=== PATIENT | female | born 1945 | race Caucasian/White ===

== ENCOUNTER → 2018-04-04 | Outpatient (CLI) | payer MEDICARE ==
--- NOTE | 2018-04-04 15:37 | US ---
EXAMINATION TYPE: US carotid duplex BILAT DATE OF EXAM: 04/04/2018 COMPARISON: NONE CLINICAL HISTORY: Carotid Bruit R09.89. Bruit EXAM MEASUREMENTS: RIGHT: Peak Systolic Velocity (PSV) cm/sec ----- Right CCA: 75.4 ----- Right ICA: 78.7 ----- Right ECA: 80.0 ICA/CCA ratio: 1.0 RIGHT: End Diastole cm/sec ----- Right CCA: 16.0 ----- Right ICA: 24.8 ----- Right ECA: 0.0 LEFT: Peak Systolic Velocity (PSV) cm/sec ----- Left CCA: 71.5 ----- Left ICA: 81.6 ----- Left ECA: 65.9 ICA/CCA ratio: 1.1 LEFT: End Diastole cm/sec ----- Left CCA: 18.7 ----- Left ICA: 20.0 ----- Left ECA: 8.1 VERTEBRALS (direction of flow): Right Vertebral: Antegrade Left Vertebral: Antegrade Rhythm: Normal Bilateral intimal thickening, minimal plaque bilateral bulb, no elevated velocities, no significant s tenosis. IMPRESSION: No hemodynamically significant stenosis seen in either internal carotid artery.
== END | disposition home or self-care (01) ==
LOC: RADUSWWP 14:56
PROVIDERS: ATTEND Family Medicine
DX: R09.89 Other specified symptoms and signs involving the circulatory and respiratory systems (principal)
CPT/HCPCS: 93880

== ENCOUNTER → 2018-05-05 | Outpatient (CLI) | payer MEDICARE ==
--- NOTE | 2018-05-05 09:38 | MR ---
EXAMINATION TYPE: MR lumbar spine wo con DATE OF EXAM: 05/05/2018 COMPARISON: NONE HISTORY: Low back pain TECHNIQUE: T1 and T2 axial and sagittal images of the lumbar spine are submitted. FINDINGS: There is no abnormal signal seen within the visualized spinal cord or paraspinal soft tissu es. Areas of abnormal signal involving the kidneys are likely related to tiny simple cysts. At L1-2 there is moderate degenerative disc disease with circumferential disc bulging. There is a adv anced facet arthropathy greater on the left. Borderline central stenosis and mild bilateral foraminal encroachment greater on the left. At L2-3 there is severe degenerative disc disease there is a minimal anterolisthesis of L2 on L3. Bro ad-based central disc protrusion with facet arthropathy and ligamentum flavum results in moderate deepti tral stenosis and mild right foraminal encroachment. There is moderate left foraminal encroachment. D isc protrusion extends greater paracentrally and laterally to the left. At L3-4 there is severe degenerative disc disease with vacuum disc and diffuse disc bulging. Marked f acet arthropathy and ligamentum flavum hypertrophy contribute to moderate central stenosis and bilate ral neural foraminal encroachment. At L4-5 there is severe degenerative disc disease with severe ligamentum flavum hypertrophy and broad -based central disc protrusion advanced facet arthropathy contribute to severe canal stenosis. There is severe right foraminal encroachment and moderate left foraminal encroachment. At L5-S1 there is severe degenerative disc disease with marked facet arthropathy and ligamentum flavu m hypertrophy. Broad-based central disc bulging contributes to moderate to severe central stenosis. T here is bilateral neural foraminal encroachment. IMPRESSION: 1. Severe degenerative disc disease at all levels. There is multilevel disc protrusions, canal stenos is and foraminal encroachment with most marked findings at L4-L5. 2. The common bile duct appears to be dilated and there appears to be a area of low signal within the distal common bile duct. This could represent a distal CBD stone. Correlate clinically.
== END ==
LOC: RADMRIMAIN 08:40
PROVIDERS: ATTEND Orthopaedic Surgery Orthopaedic Surgery of the Spine
DX: M48.061 Spinal stenosis, lumbar region without neurogenic claudication (principal); M51.26 Other intervertebral disc displacement, lumbar region; M51.36 Other intervertebral disc degeneration, lumbar region
CPT/HCPCS: 72148

== ENCOUNTER 2018-06-21 06:49 | Day surgery (SDC) | payer MEDICARE ==
[2018-06-15 15:02] VITALS: BMI 31.1
[~2018-06-21 06:49] MED LIST: LACTATED RINGERS 1,000 ML IV SCH
[2018-06-21] MEDS: CYCLOPENTOLATE 1% OPHTH SOLN 2 ML BTL OP ONE ×3 (07:23→07:46)
[2018-06-21 07:28] VITALS: TEMP 97.8
[2018-06-21] MEDS: PHENYLEPHRINE 10% OPHTH DROPS 5 ML BTL OP ONE ×3 (07:29→07:49)
[2018-06-21 07:31] LABS: Glucose,Whole Blood 123 mg/dL (75-99)
[2018-06-21] MEDS: KETOROLAC 0.5% OPHTH DROPS 5 ML BTL OP ONE ×3 (07:33→07:52)
[2018-06-21] MEDS ORDERED: ONDANSETRON 4 MG/2 ML VIAL IVP ONE (07:40)
[2018-06-21] MEDS ORDERED: fentaNYL (PF) 50 MCG/ML 2 ML AMP ONE (08:22)
[2018-06-21] MEDS ORDERED: MIDAZOLAM 2 MG/2 ML VIAL ONE (08:22)
[2018-06-21] MEDS ORDERED: PROPOFOL 10 MG/ML 20 ML VIAL IV ONE (08:22)
[2018-06-21] MEDS ORDERED: EPINEPHrine (PF) 0.5 ML in BALANCED SALT IRRIG SOLN COMB2 500 ML IRRIGATION ONE (08:37)
[2018-06-21] MEDS ORDERED: HYALURONATE SODIUM INTRAOCULAR 1 EACH SYRINGE (10MG/ML) INTRAOCULA ONE (08:39)
[2018-06-21] MEDS ORDERED: BALANCED SALT IRRIG SOLN COMB2 15 ML IRRIG.SOLN IRRIGATION ONE (08:39)
--- NOTE | 2018-06-21 08:46 | P.OP ---
Date of Procedure: 06/21/18 Procedure(s) Performed: PREOPERATIVE DIAGNOSIS: Cataract, left eye. POSTOPERATIVE DIAGNOSIS: Cataract, left eye. OPERATION: Phacoemulsification cataract, left eye. DESCRIPTION OF PROCEDURE: The patient was taken to the preoperative holding area. Intravenous Propofol was given so as to bring about adequate sedation. The following mixture was given for local anesthesia: 5 mL of 2% lidocaine, 5 mL of 0.75% Marcaine, and 1 mL of Wydase. Approximately 4 mL was injected in the retrobulbar space of the surgical eye. Additional 1 mL was then directed to the temporal area of the surgical eye. This was performed to allow adequate neurological block of the facial muscles. The patient was revived and then taken into the operative room. The patient was prepped and draped in the usual sterile manner for the operative eye. A lid speculum was put into position. The conjunctiva was resected back from the limbus in the 12 o'clock position. Bleeding was controlled with electrocautery. A #69 blade was then used and a half-thickness scleral incision approximately 1-mm posterior to the limbus was made on bare sclera. This was shelved in the clear cornea using a crescent knife. Next a 15-degree blade was used to make a stab incision at the 3 o' clock position at the corneolimbal interface. Keratome blade was then used and the superior wound was extended into the anterior chamber. Viscoelastic was injected into the anterior chamber and to maintain its form. Next, a cystotome was used and a continuous anterior capsulotomy was made without difficulty. Hydrodissection using a blunt cannula and BSS was performed. Phaco probe was then employed and a groove extending from 12 to 6 o'clock in the lens was created. A Cole wand was used through the stab incision so as to perform a divide and conquer technique. Next an irrigation aspiration probe was utilized and any residual cortex was removed from the eye. Again, viscoelastic was injected into the anterior chamber. An Jose posterior chamber lens implant was placed in the cartridge and injected into the anterior chamber without difficulty. The SinTipRanksey hook was utilized to spin the lens into position and this was again performed without any difficulty. The irrigation and aspiration probe was again employed and any residual viscoelastic was removed from the eye. Then BSS was injected into the limbal stab incision and the anterior chamber re-inflated. The conjunctiva was reapproximated using electrocautery. One drop of 0.25% Timoptic was placed over the corneal along with TobraDex ophthalmic ointment. Two sterile patches and a Hayes eye shield were taped into position. The patient was transported to the recovery room in stable condition. Pathology: none sent Condition: stable Disposition: same day
[2018-06-21 09:07] VITALS: BP 136/89; PULSE 74; RESP 18
[2018-06-21] MEDS ORDERED: BUPIVACAINE (PF) 0.75% 5 ML, HYALURONIDASE, HUMAN RECOMB 150 UNIT, LIDOCAINE 2% (PF) 10... MISCELLANE ONE ×3 (23:00)
[2018-06-21] MEDS ORDERED: GENTAMICIN/PREDNISOL AC OPHTH OINT 3.5GM OPHTHALMIC ONE (23:00)
[2018-06-21] MEDS ORDERED: TIMOLOL 0.5% OPHTH DROPS 5 ML BTL OP ONE (23:00)
== END 2018-06-21 09:22 | disposition home or self-care (01) ==
LOC: OR 06:49
PROVIDERS: ATTEND Ophthalmology
DX: H25.13 Age-related nuclear cataract, bilateral (principal); E11.9 Type 2 diabetes mellitus without complications; I11.9 Hypertensive heart disease without heart failure; M19.90 Unspecified osteoarthritis, unspecified site; K21.9 Gastro-esophageal reflux disease without esophagitis; Z88.5 Allergy status to narcotic agent; Z88.0 Allergy status to penicillin; Z88.8 Allergy status to other drugs, medicaments and biological substances; Z88.6 Allergy status to analgesic agent; Z91.041 Radiographic dye allergy status; Z79.84 Long term (current) use of oral hypoglycemic drugs; Z79.899 Other long term (current) drug therapy; Z98.51 Tubal ligation status
CPT/HCPCS: 66984; V2632; J2250; J3470; J2001; J2405; J0171; J3010; J2704

== ENCOUNTER 2019-06-08 22:55 | Observation (INO) | payer MEDICARE ==
[2019-06-08] MEDS ORDERED: SODIUM CHLORIDE 0.9% 1,000 ML IV STA (23:21)
[2019-06-08] MEDS ORDERED: ONDANSETRON 4 MG/2 ML VIAL IVP STA (23:21)
[2019-06-08] MEDS ORDERED: MECLIZINE 12.5 MG TAB PO STA (23:21)
--- NOTE | 2019-06-08 23:25 | ED ---
Dizziness HPI - General Chief Complaint: Dizziness Stated Complaint: Nausea Source: patient Mode of arrival: ambulatory Limitations: no limitations - History of Present Illness Initial Comments: Katie is a pleasant 74-year-old female who presents to the emergency department today for evaluation of dizziness, room spinning sensation and nausea. Patient reports that she's been prescribed a pain medication, patient states that she usually only takes half a pill but even that tends to make her feel lightheaded and unwell. Patient states on Wednesday of this week she took a full pill and believes that her symptoms are due to that. - Related Data Home Medications Medication Instructions Recorded Confirmed Benazepril HCl 10 mg PO QAM 04/09/16 06/08/19 Cranberry Fruit Concentrate 1 tab PO DAILY 04/09/16 06/08/19 [Cranberry] Gabapentin [Neurontin] 600 mg PO TID 04/09/16 06/08/19 Verapamil HCl [Verapamil ER] 240 mg PO QAM 04/09/16 06/08/19 metFORMIN HCL [Glucophage] 850 mg PO BID 04/09/16 06/08/19 Baclofen [Lioresal] 10 mg PO TID PRN 06/15/18 06/08/19 Cholecalciferol [Vitamin D3] 2,000 unit PO DAILY 06/15/18 06/08/19 Iron 50 mg PO DAILY 06/15/18 06/08/19 Multivit-Min/Iron/Folic/Lutein 1 tab PO DAILY 06/15/18 06/08/19 [Centrum Silver Women Tablet] Omeprazole 20 mg PO BID 06/15/18 06/08/19 Allergies Allergy/AdvReac Type Severity Reaction Status Date / Time Penicillins Allergy Rash/Hives.HOT Verified 06/08/19 23:29 FLASH caffeine AdvReac INCREASED Verified 06/08/19 23:29 HEART RATE, TWITCHING ON HER SCALP codeine AdvReac Nausea & Verified 06/08/19 23:29 Vomiting Iodinated Contrast Media AdvReac 'PASSED Verified 06/08/19 23:29 [Iodinated Contrast Media - OUT'. IV Dye] FLUSHING. morphine AdvReac Nausea & Verified 06/08/19 23:29 Vomiting NSAIDS (Non-Steroidal AdvReac ulcers Verified 06/08/19 23:29 Anti-Inflamma theophylline anhydrous AdvReac INCREASED Verified 06/08/19 23:29 [From Álvaro-Dur] HEART RATE SYMPATHOMEIMETCICS AdvReac Unknown. Uncoded 06/08/19 23:29 PATIENT SPELLED THIS SEVERAL TIMES? Review of Systems ROS Statement: Those systems with pertinent positive or pertinent negative responses have been documented in the HPI. ROS Other: All systems not noted in ROS Statement are negative. Past Medical History Past Medical History: Asthma, Diabetes Mellitus, Eye Disorder, Fibromyalgia, GERD/Reflux, GI Bleed, Hypertension, Myocardial Infarction (CT), Rheumatoid Arthritis (RA) Additional Past Medical History / Comment(s): unable to breath through nose,steroid injection Jun 2018 to back,cataracts maximus eyes,PAST UGI BLEED X3. HEART MURMUR.. Last Myocardial Infarction Date:: 2004 History of Any Multi-Drug Resistant Organisms: None Reported Past Surgical History: Cholecystectomy, Joint Replacement, Orthopedic Surgery, Tubal Ligation Additional Past Surgical History / Comment(s): RIGHT COLLAR BONE REPAIR ( DEFECT). LEFT TOTAL KNEE. Past Anesthesia/Blood Transfusion Reactions: Motion Sickness, Postoperative Nausea & Vomiting (PONV) Past Psychological History: No Psychological Hx Reported Smoking Status: Never smoker Past Alcohol Use History: None Reported Past Drug Use History: None Reported - Past Family History Mother Family Medical History: No Reported History General Exam - General Exam Comments Initial Comments: Physical Exam GENERAL: Uncomfortable appearing elderly female, resistant to moving her head Appears nauseated HENT: Normocephalic, Atraumatic. TMs normal bilaterally EYES: PERRL, EOMI There is horizontal nystagmus upon head turning or pronounced when turning the head to the right PULMONARY: Unlabored respirations. No audible rales rhonchi or wheezing was noted. CARDIOVASCULAR: There is a regular rate and rhythm without any murmurs gallops or rubs. ABDOMEN: Soft and nontender with normal bowel sounds. SKIN: Skin is clear with no lesions or rashes and otherwise unremarkable. : Deferred NEUROLOGIC: Patient is alert and oriented x3. Moving all extremities spontaneously MUSCULOSKELETAL: Normal extremities with adequate strength and full range of motion. No lower extremity swelling or edema. No calf tenderness. PSYCHIATRIC: Normal psychiatric evaluation. Limitations: no limitations Course Vital Signs 06/08/19 06/08/19 06/09/19 22:57 23:54 01:38 Temperature 97.4 F L Pulse Rate 88 61 61 Pulse Rate [ Pulse Oximetery ] Respiratory 18 18 16 Rate Blood Pressure 195/102 148/86 128/68 Blood Pressure [Right Arm] O2 Sat by Pulse 99 96 94 L Oximetry 06/09/19 05:32 Temperature 97.6 F Pulse Rate Pulse Rate [ 68 Pulse Oximetery ] Respiratory 19 Rate Blood Pressure Blood Pressure 179/84 [Right Arm] O2 Sat by Pulse 98 Oximetry EKG Findings - EKG Comments: EKG Findings:: EKG was obtained due to complaint of lightheadedness and an elderly female, EKG was obtained at 2345, rate is 64 rhythm is sinus with a leftward axis normal intervals, NM 154, QRS 98, QTC 458 there are no acute ST elevations or depressions no evidence of acute ischemia or infarction or arrhythmia on this EKG. Medical Decision Making - Medical Decision Making The patient was seen and evaluated she was obtained from the patient and daughter bedside and status post 74-year-old female with what appears to be vertiginous symptoms with associated nausea Given the patient's advanced age we will obtain a head CT as well as labs and tr eat symptomatically with meclizine Patient received IV fluids and meclizine, upon reevaluation she was feeling somewhat better but still had some dizziness Patient's head CT and labs are within normal limits given the patient's advanced age, gait instability at baseline and persistent vertiginous symptoms after meclizine I do feel she warrants admission to hospital for evaluation by neurology. In addition I feel the patient would benefit from evaluation by physical therapy to make sure she is safe to return home and capable of walking steadily. Patient daughter agreeable to this plan. - Lab Data Result diagrams: 06/08/19 23:40 06/08/19 23:40 Lab Results 06/08/19 06/08/19 06/08/19 Range/Units 23:40 23:40 23:40 WBC 8.7 (3.8-10.6) k/uL RBC 4.27 (3.80-5.40) m/uL Hgb 13.5 (11.4-16.0) gm/dL Hct 41.7 (34.0-46.0) % MCV 97.7 (80.0-100.0) fL MCH 31.6 (25.0-35.0) pg MCHC 32.3 (31.0-37.0) g/dL RDW 13.2 (11.5-15.5) % Plt Count 253 (150-450) k/uL Neutrophils % 52 % Lymphocytes % 38 % Monocytes % 6 % Eosinophils % 2 % Basophils % 1 % Neutrophils # 4.5 (1.3-7.7) k/uL Lymphocytes # 3.3 (1.0-4.8) k/uL Monocytes # 0.6 (0-1.0) k/uL Eosinophils # 0.1 (0-0.7) k/uL Basophils # 0.0 (0-0.2) k/uL PT (9.0-12.0) sec INR (<1.2) Sodium 139 (137-145) mmol/L Potassium 3.6 (3.5-5.1) mmol/L Chloride 104 (98-107) mmol/L Carbon Dioxide 18 L (22-30) mmol/L Anion Gap 17 mmol/L BUN 12 (7-17) mg/dL Creatinine 0.62 (0.52-1.04) mg/dL Est GFR (CKD-EPI)AfAm >90 (>60 ml/min/1.73 sqM) Est GFR (CKD-EPI)NonAf 90 (>60 ml/min/1.73 sqM) Glucose 175 H (74-99) mg/dL Calcium 9.2 (8.4-10.2) mg/dL Total Bilirubin 0.4 (0.2-1.3) mg/dL AST 33 (14-36) U/L ALT 29 (9-52) U/L Alkaline Phosphatase 74 (38-126) U/L Troponin I <0.012 (0.000-0.034) ng/mL Total Protein 7.3 (6.3-8.2) g/dL Albumin 4.1 (3.5-5.0) g/dL 06/08/19 Range/Units 23:40 WBC (3.8-10.6) k/uL RBC (3.80-5.40) m/uL Hgb (11.4-16.0) gm/dL Hct (34.0-46.0) % MCV (80.0-100.0) fL MCH (25.0-35.0) pg MCHC (31.0-37.0) g/dL RDW (11.5-15.5) % Plt Count (150-450) k/uL Neutrophils % % Lymphocytes % % Monocytes % % Eosinophils % % Basophils % % Neutrophils # (1.3-7.7) k/uL Lymphocytes # (1.0-4.8) k/uL Monocytes # (0-1.0) k/uL Eosinophils # (0-0.7) k/uL Basophils # (0-0.2) k/uL PT 10.5 (9.0-12.0) sec INR 1.0 (<1.2) Sodium (137-145) mmol/L Potassium (3.5-5.1) mmol/L Chloride (98-107) mmol/L Carbon Dioxide (22-30) mmol/L Anion Gap mmol/L BUN (7-17) mg/dL Creatinine (0.52-1.04) mg/dL Est GFR (CKD-EPI)AfAm (>60 ml/min/1.73 sqM) Est GFR (CKD-EPI)NonAf (>60 ml/min/1.73 sqM) Glucose (74-99) mg/dL Calcium (8.4-10.2) mg/dL Total Bilirubin (0.2-1.3) mg/dL AST (14-36) U/L ALT (9-52) U/L Alkaline Phosphatase (38-126) U/L Troponin I (0.000-0.034) ng/mL Total Protein (6.3-8.2) g/dL Albumin (3.5-5.0) g/dL Disposition Clinical Impression: Vertigo, Gait instability Disposition: ADMITTED IP TO THIS HOSP Condition: Stable Is patient prescribed a controlled substance at d/c from ED?: No
--- NOTE | 2019-06-09 00:03 | CT ---
EXAM: CT Head Without Intravenous Contrast CLINICAL HISTORY: ITS.REASON CT Reason: vertigo TECHNIQUE: Axial computed tomography images of the head/brain without intravenous contrast. CTDI is 49.1 mGy and DLP is 1063.4 mGy-cm. This CT exam was performed using one or more of the following dose reduction techniques: automated exposure control, adjustment of the mA and/or kV according to patient size, and/or use of iterative reconstruction technique. COMPARISON: No relevant prior studies available. FINDINGS: Brain: No intracranial hemorrhage or mass effect. No clear acute large vessel territorial infarct. Mild atrophy. Calcified skull base arteries. Ventricles: Unremarkable. No ventriculomegaly. Bones/joints: Unremarkable. No acute fracture. Soft tissues: Unremarkable. Sinuses: Unremarkable as visualized. No acute sinusitis. Mastoid air cells: Unremarkable as visualized. No mastoid effusion. IMPRESSION: No acute intracranial process.
[2019-06-09 00:11] LABS: Basophils % (A) 1 %; Eosinophils # (A) 0.1 k/uL (0-0.7); Eosinophils % (A) 2 %; HCT 41.7 % (34.0-46.0); HGB 13.5 gm/dL (11.4-16.0); Lymphocytes # (A) 3.3 k/uL (1.0-4.8); Lymphocytes % (A) 38 %; MCH 31.6 pg (25.0-35.0); MCHC 32.3 g/dL (31.0-37.0); MCV 97.7 fL (80.0-100.0); Monocytes # (A) 0.6 k/uL (0-1.0); Monocytes % (A) 6 %; Neutrophils # (A) 4.5 k/uL (1.3-7.7); Neutrophils % (A) 52 %; Platelet Count 253 k/uL (150-450); RBC 4.27 m/uL (3.80-5.40); RDW 13.2 % (11.5-15.5); WBC 8.7 k/uL (3.8-10.6)
[2019-06-09 00:21] LABS: Prothrombin Time 10.5 sec (9.0-12.0)
[2019-06-09 00:24] LABS: ALT 29 U/L (9-52); AST 33 U/L (14-36); African American GFR (CKD) >90 (>60 ml/min/1.73 sqM); Albumin 4.1 g/dL (3.5-5.0); Alkaline Phosphatase 74 U/L (38-126); Anion Gap 17 mmol/L; Blood Urea Nitrogen 12 mg/dL (7-17); Calcium 9.2 mg/dL (8.4-10.2); Carbon Dioxide 18 mmol/L (22-30); Chloride 104 mmol/L (98-107); Glucose 175 mg/dL (74-99); Potassium 3.6 mmol/L (3.5-5.1); Sodium 139 mmol/L (137-145); Total Bilirubin 0.4 mg/dL (0.2-1.3); Total Protein 7.3 g/dL (6.3-8.2)
[2019-06-09] MEDS ORDERED: NALOXONE 0.4 MG/ML 1 ML VIAL IV PRN (02:59)
[2019-06-09 06:44] LABS: Glucose,Whole Blood 103 mg/dL (75-99)
[2019-06-09] MEDS ORDERED: BACLOFEN 10 MG TAB PO PRN (08:57)
[2019-06-09] MEDS: MULTIVITAMINS, THERA 1 EACH TAB PO SCH (09:54)
[2019-06-09] MEDS: FERROUS SULFATE 325 MG TAB PO SCH (09:54)
[2019-06-09] MEDS: CHOLECALCIFEROL 1,000 UNIT TAB PO SCH (09:54)
[2019-06-09] MEDS: LISINOPRIL 10 MG TAB PO SCH (09:54)
[2019-06-09] MEDS: VERAPAMIL SR 240 MG TABLET.ER PO SCH (09:55)
[2019-06-09] MEDS: GABAPENTIN 300 MG CAP PO SCH ×3 (09:55→21:08)
[2019-06-09] MEDS: PANTOPRAZOLE 40 MG TABLET PO SCH (09:56)
--- NOTE | 2019-06-09 10:41 | US ---
EXAMINATION TYPE: US carotid duplex BILAT DATE OF EXAM: 06/09/2019 COMPARISON: US, CT brain CLINICAL HISTORY: dizziness. EXAM MEASUREMENTS: RIGHT: Peak Systolic Velocity (PSV) cm/sec ----- Right CCA: 56.6 ----- Right ICA: 49.8 ----- Right ECA: 61.0 ICA/CCA ratio: 0.9 RIGHT: End Diastole cm/sec ----- Right CCA: 12.9 ----- Right ICA: 18.4 ----- Right ECA: 6.9 LEFT: Peak Systolic Velocity (PSV) cm/sec ----- Left CCA: 59.2 ----- Left ICA: 67.3 ----- Left ECA: 63.3 ICA/CCA ratio: 1.1 LEFT: End Diastole cm/sec ----- Left CCA: 8.7 ----- Left ICA: 32.9 ----- Left ECA: 7.8 VERTEBRALS (direction of flow): Right Vertebral: Antegrade Left Vertebral: Antegrade Rhythm: Arrhythmia Mild, mixed plaque is noted at bilateral carotid bifurcation and PSV is wnl bilaterally. IMPRESSION: 1. Mild degree of grayscale atheromatous plaquing with no sonographically evident hemodynamically sig nificant stenosis within either visualized carotid arterial system. 2. Cardiac arrhythmia is incidentally noted. Correlate with EKG. Criteria for Assigning % of Stenosis / Diameter reduction (Estimation based on the indirect measurements of the internal carotid artery velocities (ICA PSV). 1. Normal (no stenosis)=ICA PSV < 125 cm/s: ratio < 2.0: ICA EDV<40 cm/s. 2. Less than 50% stenosis=ICA PSV < 125 cm/s: ratio < 2.0: ICA EDV<40 cm/s. 3. 50 to 69% stenosis=ICA PSV of 125 to 230 cm/s: ration 2.0 ? 4.0: ICA EDV 40-100 cm/s. 4. Greater than 70% stenosis to near occlusion= ICA PSV > 230 cm/s: ratio > 4.0: ICA EDV > 100 cm/s. 5. Near occlusion= ICA PSV velocities may be low or undetectable: variable ratio and ICA EDV. 6. Total occlusion=unable to detect flow.
[2019-06-09 11:48] LABS: Glucose,Whole Blood 125 mg/dL (75-99)
[2019-06-09] MEDS: INSULIN ASPART (NovoLOG) 100 UNIT/ML VIAL SQ SCH ×3 (12:26→21:06)
[2019-06-09] MEDS ORDERED: ONDANSETRON 4 MG/2 ML VIAL IVP PRN (12:38)
--- NOTE | 2019-06-09 12:39 | P.HPIM ---
History of Present Illness H&P Date: 06/09/19 Chief Complaint: Dizziness This is a 74-year-old female, patient of Dr. Gerebr. She has a known past medical history of diabetes mellitus, asthma, fibromyalgia, rheumatoid arthritis, myocardial infarction, GERD, bleeding peptic ulcers about 8 years ago. She presents to emergency room with complaints of severe dizziness with nausea and feeling like she might pass out. Symptoms started a couple days ago. She feels that the room is spinning. She becomes so dizzy that she will fall to the ground feels like her body flings itself to the ground. She had symptoms back in February where she reports that she becomes so dizzy that she lost her balance and fluid into the bathroom wall. At that time she was found to have an ear infection. She was given Antivert in the ER with some improvement. Neurology has been placed on consult. Computed tomography scan of the brain was negative for any acute changes. Carotid Dopplerand hemodynamic stenosis and echo is pending. She did have some elevated blood pressures on admission with blood pressure 195/102. Blood pressure medications have been reinserted and blood pressure this morning was 129/80. Patient also contributed that her symptoms may be related to taking a full tramadol tablet instead of a half a tablet that she takes. She denies any cough, fever, chills, sweats, vomiting, bowel movement changes or urinary symptoms. She denies any headache. She doesn't having some nausea. Review of Systems Please refer to HPI otherwise unremarkable Past Medical History Past Medical History: Asthma, Diabetes Mellitus, Eye Disorder, Fibromyalgia, GERD/Reflux, GI Bleed, Hypertension, Myocardial Infarction (RI), Rheumatoid Arthritis (RA) Additional Past Medical History / Comment(s): unable to breath through nose,steroid injection Jun 2018 to back,cataracts maximus eyes,PAST UGI BLEED X3. HEART MURMUR.. Last Myocardial Infarction Date:: 2004 History of Any Multi-Drug Resistant Organisms: None Reported Past Surgical History: Cholecystectomy, Joint Replacement, Orthopedic Surgery, Tubal Ligation Additional Past Surgical History / Comment(s): RIGHT COLLAR BONE REPAIR ( DEFECT). LEFT TOTAL KNEE. Past Anesthesia/Blood Transfusion Reactions: Motion Sickness, Postoperative Nausea & Vomiting (PONV) Past Psychological History: No Psychological Hx Reported Smoking Status: Never smoker Past Alcohol Use History: None Reported Past Drug Use History: None Reported - Past Family History Mother Family Medical History: No Reported History Medications and Allergies Home Medications Medication Instructions Recorded Confirmed Type Benazepril HCl 10 mg PO QAM 04/09/16 06/08/19 History Cranberry Fruit Concentrate 1 tab PO DAILY 04/09/16 06/08/19 History [Cranberry] Gabapentin [Neurontin] 600 mg PO TID 04/09/16 06/08/19 History Verapamil HCl [Verapamil ER] 240 mg PO QAM 04/09/16 06/08/19 History metFORMIN HCL [Glucophage] 850 mg PO BID 04/09/16 06/08/19 History Baclofen [Lioresal] 10 mg PO TID PRN 06/15/18 06/08/19 History Cholecalciferol [Vitamin D3] 2,000 unit PO DAILY 06/15/18 06/08/19 History Iron 50 mg PO DAILY 06/15/18 06/08/19 History Multivit-Min/Iron/Folic/Lutein 1 tab PO DAILY 06/15/18 06/08/19 History [Centrum Silver Women Tablet] Omeprazole 20 mg PO BID 06/15/18 06/08/19 History Allergies Allergy/AdvReac Type Severity Reaction Status Date / Time Penicillins Allergy Rash/Hives.HOT Verified 06/08/19 23:29 FLASH caffeine AdvReac INCREASED Verified 06/08/19 23:29 HEART RATE, TWITCHING ON HER SCALP codeine AdvReac Nausea & Verified 06/08/19 23:29 Vomiting Iodinated Contrast Media AdvReac 'PASSED Verified 06/08/19 23:29 [Iodinated Contrast Media - OUT'. IV Dye] FLUSHING. morphine AdvReac Nausea & Verified 06/08/19 23:29 Vomiting NSAIDS (Non-Steroidal AdvReac ulcers Verified 06/08/19 23:29 Anti-Inflamma theophylline anhydrous AdvReac INCREASED Verified 06/08/19 23:29 [From Álvaro-Dur] HEART RATE SYMPATHOMEIMETCICS AdvReac Unknown. Uncoded 06/08/19 23:29 PATIENT SPELLED THIS SEVERAL TIMES? Physical Exam Vitals: Vital Signs Temp Pulse Pulse Resp BP BP Pulse Ox 06/09/19 07:00 97.8 F 60 18 129/80 96 06/09/19 05:32 97.6 F 68 19 179/84 98 06/09/19 01:38 61 16 128/68 94 L 06/08/19 23:54 61 18 148/86 96 06/08/19 22:57 97.4 F L 88 18 195/102 99 Intake and Output 06/08/19 06/09/19 06/09/19 22:59 06:59 14:59 Intake Total 118 Balance 118 Intake: Oral 118 Other: Voiding Method Toilet # Voids 1 2 Weight 77.111 kg Head normocephalic Neck supple Lungs clear to auscultation bilaterally no wheezing or crackles Heart regular rate and rhythm S1-S2, no rub or gallop Abdomen is soft nontender nondistended positive bowel sounds no hepatosplenomegaly Extremities no edema Neuro alert and orientated to 3 Results CBC & Chem 7: 06/08/19 23:40 06/08/19 23:40 Labs: Abnormal Lab Results - Last 24 Hours (Table) 06/08/19 06/09/19 06/09/19 Range/Units 23:40 06:42 11:46 Carbon Dioxide 18 L (22-30) mmol/L Glucose 175 H (74-99) mg/dL POC Glucose (mg/dL) 103 H 125 H (75-99) mg/dL Thrombosis Risk Factor Assmnt - Choose All That Apply Each Factor Represents 1 point: Acute [place] Each Risk Factor Represents 2 Points: Age 61-74 years Thrombosis Risk Factor Assessment Total Risk Factor Score: 3 Thrombosis Risk Factor Assessment Level: Moderate Risk Assessment and Plan Assessment: 1. Dizziness and nausea: Symptoms did improve with Antivert. She's had similar symptoms with previous and her ear infection. Will start Antivert 25 mg by mouth every 8 hours. Neurology on consult. Rule out any infectious processes or cardiac causes. Echo has been ordered EKG showing a normal sinus rhythm with inferior and anterior lateral infarct age undetermined and left ventricle hypertrophy. Computed tomography scan of the brain showing no acute changes. Carotid Doppler showing no significant hemodynamic stenosis. However did noted a cardiac arrhythmia. We'll repeat EKG and place patient on telemetry monit oring. Hold patient's tramadol. She felt that may be a contributing factor to her dizziness as well. 2. Essential hypertension with uncontrolled blood pressures on admission. Blood pressure has shown improvement. Resume lisinopril and verapamil. Continue to monitor blood pressures. 3. Diabetes mellitus type 2: Hold metformin during hospitalization. Continue with the sliding scale coverage 4. History of fibromyalgia and rheumatoid arthritis 5. History of GI bleed 8 years ago due to bleeding peptic ulcers. Continue Protonix 6. Degenerative disc disease of the lumbar spine with previous ablation of the nerves. Discontinue patient's tramadol. Continue with the Tylenol as needed for pain GI prophylaxis Protonix and DVT prophylaxis subcu Lovenox Time with Patient: Greater than 30 (Greater than 50% of the total time spent in counseling and coordination of care.I performed an examination of the patient and discussed their management with the physician Home Administrator. I have reviewed the Physician Home Administrator's notes and agree with the documented findings and plan of care)
[2019-06-09] MEDS: ACETAMINOPHEN TAB 325 MG TAB PO PRN (16:11)
[2019-06-09] MEDS: MECLIZINE 25 MG TAB PO SCH ×2 (16:12→21:08)
[2019-06-09 17:06] LABS: Glucose,Whole Blood 113 mg/dL (75-99)
[2019-06-09 21:03] LABS: Glucose,Whole Blood 122 mg/dL (75-99)
--- NOTE | 2019-06-09 21:41 | P.CNNES ---
History of Present Illness Consult date: 06/09/19 Reason for Consult: Dizziness Chief complaint: Disease and nausea History of Present Illness: HISTORY OF PRESENT ILLNESS: Thank you for allowing me to evaluate Ms. Katie Andre. Ms. Andre is a 74 year-old woman with PMhx of asthma, diabetes, fibromyalgia, GERD, GI bleed, hypertension, [place], rheumatoid arthritis bilateral cataracts, heart murmur, presenting to [facility] for dizziness, consulting Neurology for dizziness. Patient states that whenever she turns her head to the L or R, she feels like she's going to faint. She has not actually fainted although there was one episode about 5 months ago. At the time, patient was in the shower, felt dizzy, and fell into the bathroom wall. No urinary incontinence or tongue biting. Patient does not believe she ever passed out or lost consciousness. Patient denies every having room-spinning sensation. Patient reports having mild headache during this episode, but no blurry/double vision, weakness, numbness, tingling, nausea, vomiting, tinnitus. Patient denies any recent sickness, fever, URI symptoms, UTI symptoms, diarrhea or constipation. Patient at this time not reporting any dizziness or vertigo or any focal neurologic deficit. PAST MEDICAL HISTORY: Asthma, diabetes, fibromyalgia, GERD, GI bleed, hypertension, WA, rheumatoid arthritis bilateral cataracts, heart murmur PAST SURGICAL HISTORY: Cholecystectomy, tubal ligation, right collar bone repair, left total knee replacement HOME MEDICATIONS: Metformin, gabapentin, benazepril, verapamil, omeprazole, baclofen PRN, Vitamin D3, Iron, Multivitamins ALLERGIES: Penicillin, caffeine, codeine, contrast, morphine, NSAIDs SOCIAL HISTORY: Never smoker REVIEW OF SYSTEMS: The 14 systems are reviewed and no additional points are identified compared to the review of systems documented history and physical PHYSICAL EXAMINATION: VITAL SIGNS: T 97.8 HR 60 RR 18 BP 129/80 O2 sat 96% on RA GEN.: NAD, pleasant and cooperative HEENT: NCAT, sclera without icterus NECK: Supple SKIN AND EXTREMITIES: Warm to touch, no edema NEURO: MENTAL STATUS: Patient alert and oriented to self, place, time. Able to name the current president. Speech fluent, able to name and repeat, following all commands readily. No right and left disorientation, neglect CRANIAL NERVES II THROUGH XII: II: Pupils are equal and reactive to light symmetrically. No afferent pupillary defect. Visual sue are intact. III, IV, : No ptosis. Extraocular movements full. No nystagmus. V: Facial sensation intact from V1-3. VII. No clear facial asymmetry. VIII: Hearing intact to finger rub bilaterally. IX, X: Symmetric palate elevation. XI: Shoulder shrug intact. XII: Tongue midline without fasciculation or atrophy. MOTOR: Normal bulk/tone. No pronator drift or tremor. Strength is 4+/5 throughout all 4 extremities. SENSORY: Intact to light touch in all 4 extremities. Romberg is negative. REFLEXES: 2+ throughout. Toes are downgoing. No clonus. Kiki's is absent COORDINATION: Finger to nose intact. No dysmetria. GAIT: Patient requiring her cane to walk more safely. Patient is able to walk without it but very cautious. Narrow-based and stable. When she turns, patient moving her entire body together and not turning her head, which patient did not realize herself. DIAGNOSTIC TESTING: LABORATORY: WBC 8.7 hemoglobin 13.5 platelet 253 PT 10.5 INR 1.0 Sodium 139 potassium 3.6 chloride 104 bicarb 18 BUN 12 creatinine 0.62 glucose 175 AST 33 ALT 29 alk phos 74 troponin <0.012 IMAGING: CT brain without contrast 06/09/2019: No acute intracranial finding. Carotid Doppler bilateral 06/09/2019: Mild degree of salinas scale atheromatous plaquing with normal sonographically evident hemodynamically significant stenosis within either visualize carotid artery system. Cardiac arrhythmia is noted EKG 06/08/2019: Sinus rhythm, left axis deviation, left ventricular hypertrophy ASSESSMENT/RECOMMENDATIONS: Ms. Andre is a 74 year-old woman with PMhx of asthma, diabetes, fibromyalgia, GERD, GI bleed, hypertension, WA, rheumatoid arthritis bilateral cataracts, heart murmur, presenting to [facility] for dizziness, consulting Neurology for dizziness. Patient with no room-spinning sensation, no focal neurologic deficit. Patient never lost consciousness. Not likely seizure or TIA/stroke. 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 Cardiology is onboard. Carotid doppler apparently showed cardiac arrhythmia. Neurology will sign off at this time. Neurology is not available over the weekend, but feel free to [employer] message me with additional questions or concerns. Past Medical History Past Medical History: Asthma, Diabetes Mellitus, Eye Disorder, Fibromyalgia, GERD/Reflux, GI Bleed, Hypertension, Myocardial Infarction (WA), Rheumatoid Arthritis (RA) Additional Past Medical History / Comment(s): unable to breath through nose,steroid injection Jun 2018 to back,cataracts maximus eyes,PAST UGI BLEED X3. HEART MURMUR.. Last Myocardial Infarction Date:: 2004 History of Any Multi-Drug Resistant Organisms: None Reported Past Surgical History: Cholecystectomy, Joint Replacement, Orthopedic Surgery, Tubal Ligation Additional Past Surgical History / Comment(s): RIGHT COLLAR BONE REPAIR ( DEFECT). LEFT TOTAL KNEE. Past Anesthesia/Blood Transfusion Reactions: Motion Sickness, Postoperative Nausea & Vomiting (PONV) Past Psychological History: No Psychological Hx Reported Smoking Status: Never smoker Past Alcohol Use History: None Reported Past Drug Use History: None Reported - Past Family History Mother Family Medical History: No Reported History Medications and Allergies Home Medications Medication Instructions Recorded Confirmed Type Benazepril HCl 10 mg PO QAM 04/09/16 06/08/19 History Cranberry Fruit Concentrate 1 tab PO DAILY 04/09/16 06/08/19 History [Cranberry] Gabapentin [Neurontin] 600 mg PO TID 04/09/16 06/08/19 History Verapamil HCl [Verapamil ER] 240 mg PO QAM 04/09/16 06/08/19 History metFORMIN HCL [Glucophage] 850 mg PO BID 04/09/16 06/08/19 History Baclofen [Lioresal] 10 mg PO TID PRN 06/15/18 06/08/19 History Cholecalciferol [Vitamin D3] 2,000 unit PO DAILY 06/15/18 06/08/19 History Iron 50 mg PO DAILY 06/15/18 06/08/19 History Multivit-Min/Iron/Folic/Lutein 1 tab PO DAILY 06/15/18 06/08/19 History [Centrum Silver Women Tablet] Omeprazole 20 mg PO BID 06/15/18 06/08/19 History Allergies Allergy/AdvReac Type Severity Reaction Status Date / Time Penicillins Allergy Rash/Hives.HOT Verified 06/08/19 23:29 FLASH caffeine AdvReac INCREASED Verified 06/08/19 23:29 HEART RATE, TWITCHING ON HER SCALP codeine AdvReac Nausea & Verified 06/08/19 23:29 Vomiting Iodinated Contrast Media AdvReac 'PASSED Verified 06/08/19 23:29 [Iodinated Contrast Media - OUT'. IV Dye] FLUSHING. morphine AdvReac Nausea & Verified 06/08/19 23:29 Vomiting NSAIDS (Non-Steroidal AdvReac ulcers Verified 06/08/19 23:29 Anti-Inflamma theophylline anhydrous AdvReac INCREASED Verified 06/08/19 23:29 [From Álvaro-Dur] HEART RATE SYMPATHOMEIMETCICS AdvReac Unknown. Uncoded 06/08/19 23:29 PATIENT SPELLED THIS SEVERAL TIMES? Physical Examination - Vital Signs Vital Signs: Vital Signs Temp Pulse Pulse Resp BP BP Pulse Ox 06/09/19 07:00 97.8 F 60 18 129/80 96 06/09/19 05:32 97.6 F 68 19 179/84 98 06/09/19 01:38 61 16 128/68 94 L 06/08/19 23:54 61 18 148/86 96 06/08/19 22:57 97.4 F L 88 18 195/102 99 Intake and Output 06/08/19 06/09/19 06/09/19 22:59 06:59 14:59 Intake Total 118 Balance 118 Intake: Oral 118 Other: Voiding Method Toilet # Voids 1 2 Weight 77.111 kg Results - Laboratory Findings CBC and BMP: 06/08/19 23:40 06/08/19 23:40 Abnormal Lab Findings: Abnormal Labs 06/08/19 06/09/19 23:40 06:42 Carbon Dioxide 18 L Glucose 175 H POC Glucose (mg/dL) 103 H
[2019-06-10 07:04] LABS: Glucose,Whole Blood 107 mg/dL (75-99)
[2019-06-10 07:24] LABS: Basophils % (A) 1 %; Eosinophils # (A) 0.2 k/uL (0-0.7); Eosinophils % (A) 2 %; HCT 42.9 % (34.0-46.0); HGB 13.9 gm/dL (11.4-16.0); Lymphocytes # (A) 3.2 k/uL (1.0-4.8); Lymphocytes % (A) 38 %; MCH 32.6 pg (25.0-35.0); MCHC 32.5 g/dL (31.0-37.0); MCV 100.3 fL (80.0-100.0); Monocytes # (A) 0.5 k/uL (0-1.0); Monocytes % (A) 6 %; Neutrophils # (A) 4.4 k/uL (1.3-7.7); Neutrophils % (A) 52 %; Platelet Count 273 k/uL (150-450); RBC 4.28 m/uL (3.80-5.40); RDW 13.3 % (11.5-15.5); WBC 8.6 k/uL (3.8-10.6)
[2019-06-10 07:40] LABS: ALT 35 U/L (9-52); AST 37 U/L (14-36); African American GFR (CKD) >90 (>60 ml/min/1.73 sqM); Albumin 4.2 g/dL (3.5-5.0); Alkaline Phosphatase 61 U/L (38-126); Anion Gap 10 mmol/L; Blood Urea Nitrogen 10 mg/dL (7-17); Calcium 9.2 mg/dL (8.4-10.2); Carbon Dioxide 27 mmol/L (22-30); Chloride 103 mmol/L (98-107); Glucose 118 mg/dL (74-99); Potassium 3.8 mmol/L (3.5-5.1); Sodium 140 mmol/L (137-145); Total Bilirubin 0.7 mg/dL (0.2-1.3); Total Protein 7.4 g/dL (6.3-8.2)
[2019-06-10] MEDS: CHOLECALCIFEROL 1,000 UNIT TAB PO SCH (07:41)
[2019-06-10] MEDS: LISINOPRIL 10 MG TAB PO SCH (07:41)
[2019-06-10] MEDS: MECLIZINE 25 MG TAB PO SCH ×2 (07:41→15:48)
[2019-06-10] MEDS: VERAPAMIL SR 240 MG TABLET.ER PO SCH (07:41)
[2019-06-10] MEDS: GABAPENTIN 300 MG CAP PO SCH (07:42)
[2019-06-10] MEDS: ACETAMINOPHEN TAB 325 MG TAB PO PRN ×2 (07:42→12:49)
[2019-06-10] MEDS: PANTOPRAZOLE 40 MG TABLET PO SCH (07:42)
[2019-06-10] MEDS: FERROUS SULFATE 325 MG TAB PO SCH (07:42)
[2019-06-10] MEDS: INSULIN ASPART (NovoLOG) 100 UNIT/ML VIAL SQ SCH ×2 (07:43→12:00)
[2019-06-10] MEDS ORDERED: ENOXAPARIN 40 MG/0.4 ML SYRINGE SQ SCH (09:00)
[2019-06-10] MEDS: MULTIVITAMINS, THERA 1 EACH TAB PO SCH (09:30)
[2019-06-10 09:34] VITALS: TEMP 97.6
[2019-06-10 10:56] LABS: Appearance,Urine Clear (Clear); Bilirubin,Urine Negative (Negative); Blood,Urine Negative (Negative); Color,Urine Yellow; Glucose,Urine (UA) Negative (Negative); Ketones,Urine Negative (Negative); Leukocyte Esterase,Urine Negative (Negative); Nitrite,Urine Negative (Negative); Protein,Urine Negative (Negative); Urobilinogen,Urine <2.0 mg/dL (<2.0)
[2019-06-10 11:59] LABS: Glucose,Whole Blood 111 mg/dL (75-99)
--- NOTE | 2019-06-10 14:19 | P.DS ---
Providers Date of admission: 06/09/19 04:42 Expected date of discharge: 06/10/19 Attending physician: Carina Lomeli Consults: 06/09/19 04:36 Consult Physician Urgent Consulting Provider: Sri Reddy Consult Reason/Comments: dizziness Do you want consulting provider notified?: Yes Primary care physician: Adeline Vines [facility] Course: Diagnosis on discharge: 1. Dizziness and nausea: Symptoms did improve with Antivert. She's had similar symptoms with previous and her ear infection. Will start Antivert 25 mg by mouth every 8 hours. Neurology on consult. Rule out any infectious processes or cardiac causes. Echo has been ordered EKG showing a normal sinus rhythm with inferior and anterior lateral infarct age undetermined and left ventricle hypertrophy. Computed tomography scan of the brain showing no acute changes. Carotid Doppler showing no significant hemodynamic stenosis. However did noted a cardiac arrhythmia. We'll repeat EKG and place patient on telemetry monitoring. Hold patient's tramadol. She felt that may be a contributing factor to her dizziness as well. 2. Essential hypertension with uncontrolled blood pressures on admission. Blood pressure has shown improvement. Resume lisinopril and verapamil. Continue to monitor blood pressures. 3. Diabetes mellitus type 2: Hold metformin during hospitalization. Continue with the sliding scale coverage 4. History of fibromyalgia and rheumatoid arthritis 5. History of GI bleed 8 years ago due to bleeding peptic ulcers. Continue Protonix 6. Degenerative disc disease of the lumbar spine with previous ablation of the nerves. Discontinue patient's tramadol. Continue with the Tylenol as needed for pain Hospital course: This is a 74-year-old female, patient of Dr. Gerber. She has a known past medical history of diabetes mellitus, asthma, fibromyalgia, rheumatoid arthritis, myocardial infarction, GERD, bleeding peptic ulcers about 8 years ago. She presents to emergency room with complaints of severe dizziness with nausea and feeling like she might pass out. Symptoms started a couple days ago. She feels that the room is spinning. She becomes so dizzy that she will fall to the ground feels like her body flings itself to the ground. She had symptoms back in February where she reports that she becomes so dizzy that she lost her balance and fluid into the bathroom wall. At that time she was found to have an ear infection. She was given Antivert in the ER with some improvement. Neurology has been placed on consult. Computed tomography scan of the brain was negative for any acute changes. Carotid Doppler did not reveal any hemodynamic stenosis and echo is pending. She did have some elevated blood pressures on admission with blood pressure 195/102. Blood pressure medications have been reinserted and blood pressure this morning was 129/80. Patient also contributed that her symptoms may be related to taking a full tramadol tablet instead of a half a tablet that she takes. She denies any cough, fever, chills, sweats, vomiting, bowel movement changes or urinary symptoms. She denies any headache. She doesn't having some nausea. On 06/10/2019 patient was seen and examined on the medical floor she is alert and oriented 3 in no apparent distress, her dizziness has resolved, she is able to ambulate without any difficulty, carotid Doppler was done and did not reveal any significant stenosis, echocardiogram was done during this admission results are still pending, results may not be available until Wednesday, and patient is clinically stable for discharge, she will be discharged home today, she will follow-up with her primary care physician Dr. Adeline Vines, and results of echocardiogram should be reviewed as outpatient. Patient Condition at Discharge: Stable Plan - Discharge Summary Discharge Rx Participant: No New Discharge Prescriptions: New Meclizine [Antivert] 25 mg PO TID tab Continue metFORMIN HCL [Glucophage] 850 mg PO BID Gabapentin [Neurontin] 600 mg PO TID Cranberry Fruit Concentrate [Cranberry] 1 tab PO DAILY Benazepril HCl 10 mg PO QAM Verapamil HCl [Verapamil ER] 240 mg PO QAM Omeprazole 20 mg PO BID Baclofen [Lioresal] 10 mg PO TID PRN PRN Reason: Pain Cholecalciferol [Vitamin D3 (25 Mcg = 1000 Iu)] 2,000 unit PO DAILY Iron 50 mg PO DAILY Multivit-Min/Iron/Folic/Lutein [Centrum Silver Women Tablet] 1 tab PO DAILY Discharge Medication List Benazepril HCl 10 mg PO QAM 04/09/16 [History] Cranberry Fruit Concentrate [Cranberry] 1 tab PO DAILY 04/09/16 [History] Gabapentin [Neurontin] 600 mg PO TID 04/09/16 [History] Verapamil HCl [Verapamil ER] 240 mg PO QAM 04/09/16 [History] metFORMIN HCL [Glucophage] 850 mg PO BID 04/09/16 [History] Baclofen [Lioresal] 10 mg PO TID PRN 06/15/18 [History] Cholecalciferol [Vitamin D3 (25 Mcg = 1000 Iu)] 2,000 unit PO DAILY 06/15/18 [History] Iron 50 mg PO DAILY 06/15/18 [History] Multivit-Min/Iron/Folic/Lutein [Centrum Silver Women Tablet] 1 tab PO DAILY 06/15/18 [History] Omeprazole 20 mg PO BID 06/15/18 [History] Meclizine [Antivert] 25 mg PO TID tab 06/10/19 [Rx] Follow up Appointment(s)/Referral(s): Adeline Vines MD [Primary Care Provider] - 1-2 days
[2019-06-10 14:29] VITALS: BP 155/85; PULSE 76; RESP 16
--- NOTE | 2019-06-16 11:40 | ECHOF ---
Referral Reason:check EF MEASUREMENTS -------- HEIGHT: 152.4 cm WEIGHT: 77.1 kg BP: 129/80 RVIDd: 2.9 cm (< 3.3) IVSd: 1.4 cm (0.6 - 1.1) LVIDd: 3.6 cm (3.9 - 5.3) LVPWd: 1.2 cm (0.6 - 1.1) IVSs: 1.9 cm LVIDs: 2.9 cm LVPWs: 1.7 cm LA Diam: 3.6 cm (2.7 - 3.8) LAESV Index (A-L): 29.88 ml/m Ao Diam: 3.4 cm (2.0 - 3.7) AV Cusp: 1.8 cm (1.5 - 2.6) MV EXCURSION: 13.883 mm (> 18.000) MV EF SLOPE: 51 mm/s (70 - 150) EPSS: 0.5 cm MV E Jose Alberto: 0.66 m/s MV DecT: 283 ms MV A Jose Alberto: 0.91 m/s MV E/A Ratio: 0.72 AR PHT: 667 ms RAP: 5.00 mmHg RVSP: 25.57 mmHg TAPSE: 19.09 mm FINDINGS -------- Sinus rhythm. This was a technically adequate study. The left ventricular size is normal. There is moderate concentric left ventricular hypertrophy. O verall left ventricular systolic function is normal with, an EF between 55 - 60 %. The diastolic fi lling pattern is normal for the age of the patient 15.76. The right ventricle is normal in size. The left atrium is mildly dilated. LA is midly dilated 29-33ml/m2. The right atrial size is normal. There is mild aortic valve sclerosis. There is mild aortic regurgitation. Mild mitral annular calcification present. Mild mitral regurgitation is present. Mild tricuspid regurgitation present. Right ventricular systolic pressure is normal at < 35 mmHg. There is no evidence of pulmonary hypertension. There is no pulmonic regurgitation present. The aortic root size is normal. There is no pericardial effusion. CONCLUSIONS -------- 1. Sinus rhythm. 2. This was a technically adequate study. 3. The left ventricular size is normal. 4. There is moderate concentric left ventricular hypertrophy. 5. Overall left ventricular systolic function is normal with, an EF between 55 - 60 %. 6. The diastolic filling pattern is normal for the age of the patient 15.76 7. The right ventricle is normal in size. 8. The left atrium is mildly dilated. 9. LA is midly dilated 29-33ml/m2. 10. The right atrial size is normal. 11. There is mild aortic valve sclerosis. 12. There is mild aortic regurgitation. 13. Mild mitral annular calcification present. 14. Mild mitral regurgitation is present. 15. Mild tricuspid regurgitation present. 16. Right ventricular systolic pressure is normal at < 35 mmHg. 17. There is no evidence of pulmonary hypertension. 18. There is no pulmonic regurgitation present. 19. The aortic root size is normal. 20. There is no pericardial effusion. STRATEGY ANALYST: Lyndsay Russo RDCS
== END 2019-06-10 15:49 ==
LOC: EC 22:55 → 4SSUR 06-09 04:42
PROVIDERS: ADMIT Internal Medicine; ATTEND Internal Medicine
DX: R42 Dizziness and giddiness (principal); R11.0 Nausea; M79.7 Fibromyalgia; M06.9 Rheumatoid arthritis, unspecified; K21.9 Gastro-esophageal reflux disease without esophagitis; J45.909 Unspecified asthma, uncomplicated; I10 Essential (primary) hypertension; E11.9 Type 2 diabetes mellitus without complications; H26.9 Unspecified cataract; R51 Headache; I49.9 Cardiac arrhythmia, unspecified; M51.36 Other intervertebral disc degeneration, lumbar region; Z79.84 Long term (current) use of oral hypoglycemic drugs; Z79.899 Other long term (current) drug therapy; Z88.6 Allergy status to analgesic agent; Z91.041 Radiographic dye allergy status; Z88.5 Allergy status to narcotic agent; Z88.0 Allergy status to penicillin; Z88.8 Allergy status to other drugs, medicaments and biological substances; Z91.048 Other nonmedicinal substance allergy status; I25.2 Old myocardial infarction; Z87.11 Personal history of peptic ulcer disease; Z90.49 Acquired absence of other specified parts of digestive tract; Z96.652 Presence of left artificial knee joint; Z98.51 Tubal ligation status
CPT/HCPCS: 96361 ×2; 96374; 99285; 36415; 93005 ×3; 93306; 97161; 80053 ×2; 84484; 85025 ×2; 85610; 81003; 83036; 93880; 70450; G0378 ×2; J2405

== ENCOUNTER 2020-05-03 02:31 | Emergency (ER) | payer MEDICARE ==
[2020-05-03 03:07] LABS: Basophils # (A) 0.1 k/uL (0-0.2); Basophils % (A) 1 %; Eosinophils # (A) 0.2 k/uL (0-0.7); Eosinophils % (A) 2 %; HCT 42.8 % (34.0-46.0); HGB 14.1 gm/dL (11.4-16.0); Lymphocytes # (A) 4.5 k/uL (1.0-4.8); Lymphocytes % (A) 40 %; MCH 31.6 pg (25.0-35.0); MCHC 32.9 g/dL (31.0-37.0); MCV 96.1 fL (80.0-100.0); Monocytes # (A) 0.6 k/uL (0-1.0); Monocytes % (A) 5 %; Neutrophils # (A) 5.6 k/uL (1.3-7.7); Neutrophils % (A) 50 %; Platelet Count 254 k/uL (150-450); RBC 4.46 m/uL (3.80-5.40); RDW 12.7 % (11.5-15.5); WBC 11.2 k/uL (3.8-10.6)
--- NOTE | 2020-05-03 03:09 | ED ---
Chest Pain HPI - General Chief Complaint: Chest Pain Stated Complaint: Chest Pain Time Seen by Provider: 05/03/20 02:38 Source: patient, family, RN notes reviewed, old records reviewed Mode of arrival: wheelchair Limitations: no limitations - History of Present Illness Initial Comments: This is a 74-year-old female DF for evaluation she complains of history of NM but no heart cath no stents. Patient has central chest pain going to her back felt like A Pulsating Episodic in Her Chest. Mild Nausea No Vomiting No Change in Symptoms. No Shortness of Breath No Diaphoresis No Fever Cough or Congestion MD Complaint: chest pain -: hour(s) Onset: during rest, during exertion Pain Location: substernal Pain Radiation: back Severity scale (1-10): 3 Quality: tightness Consistency: constant Improves With: nothing Worsens With: nothing Anginal Symptoms: nausea Other Symptoms: rash Treatments Prior to Arrival: none - Related Data Home Medications Medication Instructions Recorded Confirmed Benazepril HCl 10 mg PO QAM 04/09/16 06/08/19 Cranberry Fruit Concentrate 1 tab PO DAILY 04/09/16 06/08/19 [Cranberry] Gabapentin [Neurontin] 600 mg PO TID 04/09/16 06/08/19 Verapamil HCl [Verapamil ER] 240 mg PO QAM 04/09/16 06/08/19 metFORMIN HCL [Glucophage] 850 mg PO BID 04/09/16 06/08/19 Baclofen [Lioresal] 10 mg PO TID PRN 06/15/18 06/08/19 Cholecalciferol [Vitamin D3 (25 2,000 unit PO DAILY 06/15/18 06/08/19 Mcg = 1000 Iu)] Iron 50 mg PO DAILY 06/15/18 06/08/19 Multivit-Min/Iron/Folic/Lutein 1 tab PO DAILY 06/15/18 06/08/19 [Centrum Silver Women Tablet] Omeprazole 20 mg PO BID 06/15/18 06/08/19 Previous Rx's Medication Instructions Recorded Meclizine [Antivert] 25 mg PO TID tab 06/10/19 Allergies Allergy/AdvReac Type Severity Reaction Status Date / Time Penicillins Allergy Rash/Hives.HOT Verified 05/03/20 02:36 FLASH caffeine AdvReac INCREASED Verified 05/03/20 02:36 HEART RATE, TWITCHING ON HER SCALP codeine AdvReac Nausea & Verified 05/03/20 02:36 Vomiting Iodinated Contrast Media AdvReac 'PASSED Verified 05/03/20 02:36 [Iodinated Contrast Media - OUT'. IV Dye] FLUSHING. morphine AdvReac Nausea & Verified 05/03/20 02:36 Vomiting NSAIDS (Non-Steroidal AdvReac ulcers Verified 05/03/20 02:36 Anti-Inflamma theophylline anhydrous AdvReac INCREASED Verified 05/03/20 02:36 [From Álvaro-Dur] HEART RATE SYMPATHOMEIMETCICS AdvReac Unknown. Uncoded 05/03/20 02:36 PATIENT SPELLED THIS SEVERAL TIMES? Review of Systems ROS Statement: Those systems with pertinent positive or pertinent negative responses have been documented in the HPI. ROS Other: All systems not noted in ROS Statement are negative. EKG Findings - EKG Comments: EKG Findings:: EKG is sinus rhythm rate is 85 LA 152 QRS 100 QTc 445 Past Medical History Past Medical History: Asthma, Diabetes Mellitus, Eye Disorder, Fibromyalgia, GERD/Reflux, GI Bleed, Hypertension, Myocardial Infarction (NM), Rheumatoid Arthritis (RA) Additional Past Medical History / Comment(s): unable to breath through nos e,steroid injection Jun 2018 to back,cataracts maximus eyes,PAST UGI BLEED X3. HEART MURMUR.. Last Myocardial Infarction Date:: 2004 History of Any Multi-Drug Resistant Organisms: None Reported Past Surgical History: Cholecystectomy, Joint Replacement, Orthopedic Surgery, Tubal Ligation Additional Past Surgical History / Comment(s): RIGHT COLLAR BONE REPAIR ( DEFECT). LEFT TOTAL KNEE. Past Anesthesia/Blood Transfusion Reactions: Motion Sickness, Postoperative Nausea & Vomiting (PONV) Past Psychological History: No Psychological Hx Reported Smoking Status: Never smoker Past Alcohol Use History: None Reported Past Drug Use History: None Reported - Past Family History Mother Family Medical History: No Reported History General Exam Limitations: no limitations General appearance: alert, in no apparent distress Head exam: Present: atraumatic, normocephalic, normal inspection Eye exam: Present: normal appearance, PERRL, EOMI. Absent: scleral icterus, conjunctival injection, periorbital swelling ENT exam: Present: normal exam, mucous membranes moist Neck exam: Present: normal inspection. Absent: tenderness, meningismus, lymphadenopathy Respiratory exam: Present: normal lung sounds bilaterally. Absent: respiratory distress, wheezes, rales, rhonchi, stridor Cardiovascular Exam: Present: regular rate, normal rhythm, normal heart sounds. Absent: systolic murmur, diastolic murmur, rubs, gallop, clicks GI/Abdominal exam: Present: soft, normal bowel sounds. Absent: distended, tenderness, guarding, rebound, rigid Extremities exam: Present: normal inspection, full ROM, normal capillary refill. Absent: tenderness, pedal edema, joint swelling, calf tenderness Back exam: Present: normal inspection Neurological exam: Present: alert, oriented X3, CN II-XII intact Psychiatric exam: Present: normal affect, normal mood Skin exam: Present: warm, dry, intact, normal color. 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 ] Respiratory 20 18 Rate Blood Pressure 154/89 156/95 O2 Sat by Pulse 97 95 Oximetry - Reevaluation(s) Reevaluation #1: 05/03/20 05:41 Medical record is reviewed Reevaluation #2: 05/03/20 05:41 A she has normal findings here in the ER with no significant distress Reevaluation #3: 05/03/20 05:41 Spoke with family and patient regarding findings, questions answered Chest Pain MDM - MDM 74 female DF for evaluation patient has atypical chest pain for the last day, no significant findings to contribute to cause of chest pain here in the ER patient can be discharged home Disposition Clinical Impression: Chest pain Disposition: HOME SELF-CARE Condition: Good Instructions (If sedation given, give patient instructions): Chest Pain (ED) Is patient prescribed a controlled substance at d/c from ED?: No Referrals: Adeline Vines MD [Primary Care Provider] - 1-2 days
[2020-05-03 03:15] LABS: ALT 18 U/L (4-34); AST 30 U/L (14-36); African American GFR (CKD) >90 (>60 ml/min/1.73 sqM); Albumin 4.3 g/dL (3.5-5.0); Alkaline Phosphatase 80 U/L (38-126); Anion Gap 14 mmol/L; Blood Urea Nitrogen 10 mg/dL (7-17); Calcium 9.3 mg/dL (8.4-10.2); Carbon Dioxide 20 mmol/L (22-30); Chloride 104 mmol/L (98-107); Glucose 202 mg/dL (74-99); Magnesium 1.4 mg/dL (1.6-2.3); Non-African American GFR(CKD) 89 (>60 ml/min/1.73 sqM); Potassium 3.9 mmol/L (3.5-5.1); Sodium 138 mmol/L (137-145); Total Bilirubin 0.4 mg/dL (0.2-1.3); Total Protein 7.4 g/dL (6.3-8.2)
[2020-05-03 03:18] LABS: INR 0.9 (<1.2); Partial Thromboplastin Time 23.4 sec (22.0-30.0); Prothrombin Time 9.8 sec (9.0-12.0)
--- NOTE | 2020-05-03 03:31 | XR ---
EXAMINATION TYPE: XR chest 2V DATE OF EXAM: 05/03/2020 COMPARISON: NONE HISTORY: Pain TECHNIQUE: 2 views FINDINGS: Heart is enlarged. There is small hiatal hernia. Thoracic aorta is atheromatous. There is n o heart failure. There is general coarsening interstitial density in the lungs. Costophrenic angles a re clear. There are chest leads. There is a plate fixing old right clavicle fracture. There is slight anterior wedging of T4 vertebra. There is some osteopenia. IMPRESSION: Pulmonary interstitial fibrosis. No heart failure seen.
[2020-05-03] MEDS ORDERED: SODIUM CHLORIDE 0.9% 1,000 ML IV STA (03:33)
[2020-05-03] MEDS ORDERED: diphenhydrAMINE 50 MG/ML 1 ML VIAL IVP STA (03:45)
[2020-05-03] MEDS ORDERED: FAMOTIDINE 20 MG/2 ML VIAL IV STA (03:45)
[2020-05-03] MEDS ORDERED: methylPREDNISolone SOD SUCCI 125 MG/2 ML VIAL IV STA (03:45)
--- NOTE | 2020-05-03 04:24 | CT ---
EXAMINATION TYPE: CT angio chest DATE OF EXAM: 05/03/2020 COMPARISON: None HISTORY: Chest pain CT DLP: 360.5 mGycm Automated exposure control for dose reduction was used. CONTRAST: Performed with IV Contrast, patient injected with 100 mL of Isovue 370. There are 3-D post processed images. There is some interstitial coarse pulmonary infiltrates consistent with pulmonary fibrosis. 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 Thoracic aorta is atheromatous. Ascending aorta measures 3.6 cm. Heart a ppears slightly enlarged. There is no pericardial effusion. There is no pleural effusion. There is hi atal hernia. There is normal contrast opacification of the pulmonary arteries. There are no filling defects. The b avery thorax is intact. IMPRESSION: No evidence of pulmonary embolism. Cardiomegaly. Hiatal hernia. COPD and pulmonary fibrosis.
[2020-05-03 05:30] VITALS: BP 156/95; PULSE 66; RESP 18; TEMP 98.2
== END 2020-05-03 05:25 | disposition home or self-care (01) ==
LOC: EC 02:31
DX: R07.89 Other chest pain (principal); K21.9 Gastro-esophageal reflux disease without esophagitis; E11.9 Type 2 diabetes mellitus without complications; M79.7 Fibromyalgia; I25.2 Old myocardial infarction; M06.9 Rheumatoid arthritis, unspecified; Z79.84 Long term (current) use of oral hypoglycemic drugs; Z79.899 Other long term (current) drug therapy; Z88.8 Allergy status to other drugs, medicaments and biological substances; Z88.0 Allergy status to penicillin; Z88.5 Allergy status to narcotic agent; Z88.6 Allergy status to analgesic agent; Z91.048 Other nonmedicinal substance allergy status; Z91.041 Radiographic dye allergy status; Z96.652 Presence of left artificial knee joint; Z90.49 Acquired absence of other specified parts of digestive tract; Z87.19 Personal history of other diseases of the digestive system
CPT/HCPCS: 36415; 93005; 83880; 80053; 83690; 83735; 84484; 85025; 85610; 85730; 71046; 71275; 99285; 96374; 96375 ×2; 96361; J1200; J2930; Q9967

== ENCOUNTER 2021-04-23 17:41 | Observation (INO) | payer MEDICARE ==
[2021-04-23] MEDS ORDERED: ACETAMINOPHEN TAB 500 MG TAB PO STA (18:05)
[2021-04-23] MEDS: SODIUM CHLORIDE 0.9% 500 ML 500 ML IV SCH ×2 (18:26→19:47)
[2021-04-23 18:43] LABS: Basophils # (A) 0.1 k/uL (0-0.2); Basophils % (A) 1 %; Eosinophils # (A) 0.1 k/uL (0-0.7); Eosinophils % (A) 1 %; HCT 37.8 % (34.0-46.0); HGB 12.5 gm/dL (11.4-16.0); Lymphocytes # (A) 1.1 k/uL (1.0-4.8); Lymphocytes % (A) 9 %; MCH 32.1 pg (25.0-35.0); MCHC 32.9 g/dL (31.0-37.0); MCV 97.5 fL (80.0-100.0); Mean Platelet Volume 7.4; Monocytes # (A) 0.7 k/uL (0-1.0); Monocytes % (A) 6 %; Neutrophils # (A) 10.8 k/uL (1.3-7.7); Neutrophils % (A) 83 %; Platelet Count 283 k/uL (150-450); RBC 3.88 m/uL (3.80-5.40); RDW 13.4 % (11.5-15.5)
--- NOTE | 2021-04-23 18:49 | XR ---
EXAMINATION TYPE: XR chest 1V portable DATE OF EXAM: 04/23/2021 COMPARISON: 05/03/2020 HISTORY: Fever TECHNIQUE: Single view FINDINGS: There is no heart failure nor confluent pneumonic infiltrate. There is hiatal hernia. There is fluid level. There is plate fixing old right clavicle fracture. Costophrenic angles are clear. Th ere are no hilar masses. IMPRESSION: No active cardiopulmonary disease. Hiatal hernia. No change compared to old exam.
[2021-04-23 18:53] LABS: ALT 73 U/L (4-34); AST 139 U/L (14-36); African American GFR (CKD) >90 (>60 ml/min/1.73 sqM); Albumin 4.6 g/dL (3.5-5.0); Alkaline Phosphatase 120 U/L (38-126); Anion Gap 14 mmol/L; Blood Urea Nitrogen 16 mg/dL (7-17); Calcium 9.3 mg/dL (8.4-10.2); Carbon Dioxide 18 mmol/L (22-30); Chloride 99 mmol/L (98-107); Glucose 132 mg/dL (74-99); Non-African American GFR(CKD) 86 (>60 ml/min/1.73 sqM); Potassium 4.3 mmol/L (3.5-5.1); Sodium 131 mmol/L (137-145); Total Bilirubin 0.6 mg/dL (0.2-1.3); Total Protein 7.7 g/dL (6.3-8.2)
[2021-04-23 18:58] LABS: Prothrombin Time 10.8 sec (9.0-12.0)
[2021-04-23 18:59] LABS: Partial Thromboplastin Time 21.8 sec (22.0-30.0)
--- NOTE | 2021-04-23 19:20 | ED ---
Fever HPI - General Chief Complaint: Fever Stated Complaint: SOB Time Seen by Provider: 04/23/21 17:48 Source: patient, EMS Mode of arrival: EMS Limitations: no limitations - History of Present Illness Initial Comments: Katie is a very pleasant 75-year-old female who comes to the ER today for fever and chills. Patient states that she just developed chills, she felt like she could not get warm, she was laying under multiple blankets and shaking, she then noted that she had a fever. She denies any acute complaints aside from this but decided she should probably be evaluated. She denies any chest pain palpitations shortness of breath abdominal pain nausea vomiting dysuria or diarrhea. - Related Data Home Medications Medication Instructions Recorded Confirmed Benazepril HCl 10 mg PO QAM 04/09/16 06/08/19 Cranberry Fruit Concentrate 1 tab PO DAILY 04/09/16 06/08/19 [Cranberry] Gabapentin [Neurontin] 600 mg PO TID 04/09/16 06/08/19 Verapamil HCl [Verapamil ER] 240 mg PO QAM 04/09/16 06/08/19 metFORMIN HCL [Glucophage] 850 mg PO BID 04/09/16 06/08/19 Baclofen [Lioresal] 10 mg PO TID PRN 06/15/18 06/08/19 Cholecalciferol [Vitamin D3 (25 2,000 unit PO DAILY 06/15/18 06/08/19 Mcg = 1000 Iu)] Iron 50 mg PO DAILY 06/15/18 06/08/19 Multivit-Min/Iron/Folic/Lutein 1 tab PO DAILY 06/15/18 06/08/19 [Centrum Silver Women Tablet] Omeprazole 20 mg PO BID 06/15/18 06/08/19 Previous Rx's Medication Instructions Recorded Meclizine [Antivert] 25 mg PO TID tab 06/10/19 Allergies Allergy/AdvReac Type Severity Reaction Status Date / Time Penicillins Allergy Rash/Hives.HOT Verified 04/23/21 17:54 FLASH caffeine AdvReac INCREASED Verified 04/23/21 17:54 HEART RATE, TWITCHING ON HER SCALP codeine AdvReac Nausea & Verified 04/23/21 17:54 Vomiting Iodinated Contrast Media AdvReac 'PASSED Verified 04/23/21 17:54 [Iodinated Contrast Media - OUT'. IV Dye] FLUSHING. morphine AdvReac Nausea & Verified 04/23/21 17:54 Vomiting NSAIDS (Non-Steroidal AdvReac ulcers Verified 04/23/21 17:54 Anti-Inflamma theophylline anhydrous AdvReac INCREASED Verified 04/23/21 17:54 [From Álvaro-Dur] HEART RATE SYMPATHOMEIMETCICS AdvReac Unknown. Uncoded 05/03/20 02:36 PATIENT SPELLED THIS SEVERAL TIMES? Review of Systems ROS Statement: Those systems with pertinent positive or pertinent negative responses have been documented in the HPI. ROS Other: All systems not noted in ROS Statement are negative. Past Medical History Past Medical History: Asthma, Diabetes Mellitus, Eye Disorder, Fibromyalgia, GE RD/Reflux, GI Bleed, Hypertension, Myocardial Infarction ([place]), Rheumatoid Arthritis ([place]) Additional Past Medical History / Comment(s): unable to breath through nose,steroid injection Jun 2018 to back,cataracts maximus eyes,PAST UGI BLEED X3. HEART MURMUR.. Last Myocardial Infarction Date:: 2004 History of Any Multi-Drug Resistant Organisms: None Reported Past Surgical History: Cholecystectomy, Joint Replacement, Orthopedic Surgery, Tubal Ligation Additional Past Surgical History / Comment(s): RIGHT COLLAR BONE REPAIR ( DEFECT). LEFT TOTAL KNEE. Past Anesthesia/Blood Transfusion Reactions: Motion Sickness, Postoperative Nausea & Vomiting (PONV) Past Psychological History: No Psychological Hx Reported Smoking Status: Never smoker Past Alcohol Use History: None Reported Past Drug Use History: None Reported - Past Family History Mother Family Medical History: No Reported History General Exam - General Exam Comments Initial Comments: Physical Exam GENERAL: Patient is well-developed and well-nourished. Patient is nontoxic and well-hydrated and is in no distress. HENT: Normocephalic, Atraumatic. EYES: PERRL, EOMI PULMONARY: Unlabored respirations. No audible rales rhonchi or wheezing was noted. CARDIOVASCULAR: Tachycardic, regular ABDOMEN: Soft and nontender with normal bowel sounds. SKIN: Skin is clear with no lesions or rashes and otherwise unremarkable. : Deferred NEUROLOGIC: Patient is alert and oriented x3 but sometimes forgetful Moving all extremities spontaneously MUSCULOSKELETAL: Normal extremities with adequate strength and full range of motion. No lower extremity swelling or edema. No calf tenderness. PSYCHIATRIC: Normal psychiatric evaluation. Limitations: no limitations Course Vital Signs 04/23/21 04/23/21 04/23/21 17:54 18:35 18:42 Temperature 101.5 F H Pulse Rate 80 77 Respiratory 18 18 18 Rate Blood Pressure 123/65 119/73 O2 Sat by Pulse 94 L 97 Oximetry 04/23/21 04/23/21 19:00 19:53 Temperature 99.2 F Pulse Rate 74 70 Respiratory 18 20 Rate Blood Pressure 116/66 107/61 O2 Sat by Pulse 99 95 Oximetry Medical Decision Making - Medical Decision Making Well-appearing 75-year-old female is febrile, tachycardic, appears septic based on vital signs Labs patient has leukocytosis, lactic acidosis Empiric dose of Rocephin was ordered and given No signs of infection on exam, COVID is negative Given the patient's advanced age, lab abnormalities and fever I do feel she has sepsis about it unknown origin, would recommend admission to the hospital patient is agreeable. Patient care was discussed with Dr. petit of [facility] who accepts the admission. - Lab Data Result diagrams: 04/23/21 18:28 04/23/21 18:28 Lab Results 04/23/21 04/23/21 04/23/21 Range/Units 18:28 18:28 18:28 WBC 13.0 H (3.8-10.6) k/uL RBC 3.88 (3.80-5.40) m/uL Hgb 12.5 (11.4-16.0) gm/dL Hct 37.8 (34.0-46.0) % MCV 97.5 (80.0-100.0) fL MCH 32.1 (25.0-35.0) pg MCHC 32.9 (31.0-37.0) g/dL RDW 13.4 (11.5-15.5) % Plt Count 283 (150-450) k/uL MPV 7.4 Neutrophils % 83 % Lymphocytes % 9 % Monocytes % 6 % Eosinophils % 1 % Basophils % 1 % Neutrophils # 10.8 H (1.3-7.7) k/uL Lymphocytes # 1.1 (1.0-4.8) k/uL Monocytes # 0.7 (0-1.0) k/uL Eosinophils # 0.1 (0-0.7) k/uL Basophils # 0.1 (0-0.2) k/uL PT 10.8 (9.0-12.0) sec INR 1.0 (<1.2) APTT 21.8 L (22.0-30.0) sec Sodium 131 L (137-145) mmol/L Potassium 4.3 (3.5-5.1) mmol/L Chloride 99 (98-107) mmol/L Carbon Dioxide 18 L (22-30) mmol/L Anion Gap 14 mmol/L BUN 16 (7-17) mg/dL Creatinine 0.69 (0.52-1.04) mg/dL Est GFR (CKD-EPI)AfAm >90 (>60 ml/min/1.73 sqM) Est GFR (CKD-EPI)NonAf 86 (>60 ml/min/1.73 sqM) Glucose 132 H (74-99) mg/dL Lactic Ac Sepsis Rflx Plasma Lactic Acid Manas (0.7-2.0) mmol/L Calcium 9.3 (8.4-10.2) mg/dL Total Bilirubin 0.6 (0.2-1.3) mg/dL AST 139 H (14-36) U/L ALT 73 H (4-34) U/L Alkaline Phosphatase 120 (38-126) U/L Total Protein 7.7 (6.3-8.2) g/dL Albumin 4.6 (3.5-5.0) g/dL Urine Color Urine Appearance (Clear) Urine pH (5.0-8.0) Ur Specific [place] (1.001-1.035) Urine Protein (Negative) Urine Glucose (UA) (Negative) Urine Ketones (Negative) Urine Blood (Negative) Urine Nitrite (Negative) Urine Bilirubin (Negative) Urine Urobilinogen (<2.0) mg/dL Ur Leukocyte Esterase (Negative) Urine RBC (0-5) /hpf Urine WBC (0-5) /hpf Ur Squamous Epith Cells (0-4) /hpf Urine Bacteria (None) /hpf Urine Mucus (None) /hpf Coronavirus (PCR) (Not Detectd) 04/23/21 04/23/21 04/23/21 Range/Units 18:28 18:28 19:12 WBC (3.8-10.6) k/uL RBC (3.80-5.40) m/uL Hgb (11.4-16.0) gm/dL Hct (34.0-46.0) % MCV (80.0-100.0) fL MCH (25.0-35.0) pg MCHC (31.0-37.0) g/dL RDW (11.5-15.5) % Plt Count (150-450) k/uL MPV Neutrophils % % Lymphocytes % % Monocytes % % Eosinophils % % Basophils % % Neutrophils # (1.3-7.7) k/uL Lymphocytes # (1.0-4.8) k/uL Monocytes # (0-1.0) k/uL Eosinophils # (0-0.7) k/uL Basophils # (0-0.2) k/uL PT (9.0-12.0) sec INR (<1.2) APTT (22.0-30.0) sec Sodium (137-145) mmol/L Potassium (3.5-5.1) mmol/L Chloride (98-107) mmol/L Carbon Dioxide (22-30) mmol/L Anion Gap mmol/L BUN (7-17) mg/dL Creatinine (0.52-1.04) mg/dL Est GFR (CKD-EPI)AfAm (>60 ml/min/1.73 sqM) Est GFR (CKD-EPI)NonAf (>60 ml/min/1.73 sqM) Glucose (74-99) mg/dL Lactic Ac Sepsis Rflx Y Plasma Lactic Acid Manas 3.6 H* (0.7-2.0) mmol/L Calcium (8.4-10.2) mg/dL Total Bilirubin (0.2-1.3) mg/dL AST (14-36) U/L ALT (4-34) U/L Alkaline Phosphatase (38-126) U/L Total Protein (6.3-8.2) g/dL Albumin (3.5-5.0) g/dL Urine Color Urine Appearance (Clear) Urine pH (5.0-8.0) Ur Specific [place] (1.001-1.035) Urine Protein (Negative) Urine Glucose (UA) (Negative) Urine Ketones (Negative) Urine Blood (Negative) Urine Nitrite (Negative) Urine Bilirubin (Negative) Urine Urobilinogen (<2.0) mg/dL Ur Leukocyte Esterase (Negative) Urine RBC (0-5) /hpf Urine WBC (0-5) /hpf Ur Squamous Epith Cells (0-4) /hpf Urine Bacteria (None) /hpf Urine Mucus (None) /hpf Coronavirus (PCR) Not Detected (Not Detectd) 04/23/21 Range/Units 21:25 WBC (3.8-10.6) k/uL RBC (3.80-5.40) m/uL Hgb (11.4-16.0) gm/dL Hct (34.0-46.0) % MCV (80.0-100.0) fL MCH (25.0-35.0) pg MCHC (31.0-37.0) g/dL RDW (11.5-15.5) % Plt Count (150-450) k/uL MPV Neutrophils % % Lymphocytes % % Monocytes % % Eosinophils % % Basophils % % Neutrophils # (1.3-7.7) k/uL Lymphocytes # (1.0-4.8) k/uL Monocytes # (0-1.0) k/uL Eosinophils # (0-0.7) k/uL Basophils # (0-0.2) k/uL PT (9.0-12.0) sec INR (<1.2) APTT (22.0-30.0) sec Sodium (137-145) mmol/L Potassium (3.5-5.1) mmol/L Chloride (98-107) mmol/L Carbon Dioxide (22-30) mmol/L Anion Gap mmol/L BUN (7-17) mg/dL Creatinine (0.52-1.04) mg/dL Est GFR (CKD-EPI)AfAm (>60 ml/min/1.73 sqM) Est GFR (CKD-EPI)NonAf (>60 ml/min/1.73 sqM) Glucose (74-99) mg/dL Lactic Ac Sepsis Rflx Plasma Lactic Acid Manas (0.7-2.0) mmol/L Calcium (8.4-10.2) mg/dL Total Bilirubin (0.2-1.3) mg/dL AST (14-36) U/L ALT (4-34) U/L Alkaline Phosphatase (38-126) U/L Total Protein (6.3-8.2) g/dL Albumin (3.5-5.0) g/dL Urine Color Yellow Urine Appearance Cloudy H (Clear) Urine pH 6.0 (5.0-8.0) Ur Specific [place] 1.027 (1.001-1.035) Urine Protein Negative (Negative) Urine Glucose (UA) Negative (Negative) Urine Ketones Negative (Negative) Urine Blood Negative (Negative) Urine Nitrite Negative (Negative) Urine Bilirubin Negative (Negative) Urine Urobilinogen <2.0 (<2.0) mg/dL Ur Leukocyte Esterase Negative (Negative) Urine RBC 2 (0-5) /hpf Urine WBC 1 (0-5) /hpf Ur Squamous Epith Cells 8 H (0-4) /hpf Urine Bacteria Occasional H (None) /hpf Urine Mucus Rare H (None) /hpf Coronavirus (PCR) (Not Detectd) Disposition Clinical Impression: Sepsis Disposition: ADMITTED IP TO THIS HOSP Condition: Stable Is patient prescribed a controlled substance at d/c from ED?: No Referrals: Adeline Vines MD [Primary Care Provider] - 1-2 days
[2021-04-23 22:45] LABS: Appearance,Urine Cloudy (Clear); Bacteria,Urine Occasional /hpf; Bilirubin,Urine Negative (Negative); Blood,Urine Negative (Negative); Color,Urine Yellow; Glucose,Urine (UA) Negative (Negative); Ketones,Urine Negative (Negative); Leukocyte Esterase,Urine Negative (Negative); Mucus,Urine Rare /hpf; Nitrite,Urine Negative (Negative); Protein,Urine Negative (Negative); RBC,Urine 2 /hpf (0-5); Specific Gravity,Urine 1.027 (1.001-1.035); Squamous Epithelial Cell,Urine 8 /hpf (0-4); Urobilinogen,Urine <2.0 mg/dL (<2.0); WBC,Urine 1 /hpf (0-5)
[2021-04-23] MEDS ORDERED: NALOXONE 0.4 MG/ML 1 ML VIAL IV PRN (22:48)
[2021-04-23] MEDS: SODIUM CHLORIDE 0.9% 1,000 ML IV SCH (23:59)
--- NOTE | 2021-04-24 02:11 | P.HPIM ---
History of Present Illness H&P Date: 04/24/21 The patient is a 75-year-old female with a PMH of type II DM presented to the emergency room with complaints of fever and chills. Patient reports that her symptoms started last night, and that she has been feeling cold with chills despite using multiple blankets. She also reported experiencing some myalgias but denied any additional complaints. She denied chest pain, shortness with, cough. Denied nausea, vomiting, abdominal pain, diarrhea. Denied dysuria, headaches, weakness, numbness, tingling. In the emergency room with chest x-ray was unremarkable. EKG showed normal sinus rhythm at 78 bpm with left axis deviation with Q waves in leads 3 and aVF. Laboratory evaluation was remarkable for leukocytosis of 13.0, lactic acid 3.6, AST 139, ALT 73, and an unremarkable UA. The patient had a T-max of 101.5 in the emergency room. Review of systems: Pertinent positives and negatives as discussed in HPI, a complete review of systems was performed and all other systems are negative. Physical examination: General: non toxic, no distress, appears at stated age, overweight Derm: no unusual rashes/lesions no unusual ecchymoses, warm, dry Head: atraumatic, normocephalic, symmetric Eyes: EOMI, no lid lag, anicteric sclera, pupils equal round reactive to light ENT: Nose and ears atraumatic, no thrush, no pharyngeal erythema Neck: No thyromegaly, no cervical lymphadenopathy, trachea midline, supple Mouth: no lip lesion, mucus membranes moist Cardiovascular: S1S2 reg, no murmur, positive posterior tibial pulse bilateral, no edema, capillary refill less than 2 seconds Lungs: CTA bilateral, no rhonchi, no rales , no accessory muscle use Abdominal: soft, nontender to palpation, no guarding, no appreciable organomegaly, normal bowel sounds Ext: no gross muscle atrophy, muscle strength 5 out of 5 in all 4 extremities grossly, no contractures, Neuro: CN II-XI grossly intact, light touch intact all 4 extremities, finger to nose within normal limits, Psych: Alert, oriented, appropriate affect Assessment/plan SIRS unknown etiology -Follow up blood cultures -Continue with ceftriaxone Abnormal LFTs -Monitor for now Type II DM -Lispro insulin sliding scale with blood glucose monitoring -Check A1c DVT prophylaxis -Heparin subcu The patient is admitted with an anticipated less than 2 midnight stay for evaluation of fever CODE STATUS: Full Code Discussed with: Patient, daughter Anticipated discharge date: in am Anticipated discharge place: Home Past Medical History Past Medical History: Asthma, Diabetes Mellitus, Eye Disorder, Fibromyalgia, GERD/Reflux, GI Bleed, Hypertension, Myocardial Infarction ([place]), Rheumatoid Arthritis ([place]) Additional Past Medical History / Comment(s): unable to breath through nose,steroid injection Jun 2018 to back,cataracts maximus eyes,PAST UGI BLEED X3. HEART MURMUR.. Last Myocardial Infarction Date:: 2004 History of Any Multi-Drug Resistant Organisms: None Reported Past Surgical History: Cholecystectomy, Joint Replacement, Orthopedic Surgery, Tubal Ligation Additional Past Surgical History / Comment(s): RIGHT COLLAR BONE REPAIR ( DEFECT). LEFT TOTAL KNEE. Past Anesthesia/Blood Transfusion Reactions: Motion Sickness, Postoperative Adán sea & Vomiting (PONV) Past Psychological History: No Psychological Hx Reported Smoking Status: Never smoker Past Alcohol Use History: None Reported Past Drug Use History: None Reported - Past Family History Mother Family Medical History: Hypertension Medications and Allergies Home Medications Medication Instructions Recorded Confirmed Type Benazepril HCl 10 mg PO QAM 04/09/16 06/08/19 History Cranberry Fruit Concentrate 1 tab PO DAILY 04/09/16 06/08/19 History [Cranberry] Gabapentin [Neurontin] 600 mg PO TID 04/09/16 06/08/19 History Verapamil HCl [Verapamil ER] 240 mg PO QAM 04/09/16 06/08/19 History metFORMIN HCL [Glucophage] 850 mg PO BID 04/09/16 06/08/19 History Baclofen [Lioresal] 10 mg PO TID PRN 06/15/18 06/08/19 History Cholecalciferol [Vitamin D3 (25 2,000 unit PO DAILY 06/15/18 06/08/19 History Mcg = 1000 Iu)] Iron 50 mg PO DAILY 06/15/18 06/08/19 History Multivit-Min/Iron/Folic/Lutein 1 tab PO DAILY 06/15/18 06/08/19 History [Centrum Silver Women Tablet] Omeprazole 20 mg PO BID 06/15/18 06/08/19 History Meclizine [Antivert] 25 mg PO TID tab 06/10/19 Rx Allergies Allergy/AdvReac Type Severity Reaction Status Date / Time Penicillins Allergy Rash/Hives.HOT Verified 04/23/21 17:54 FLASH caffeine AdvReac INCREASED Verified 04/23/21 17:54 HEART RATE, TWITCHING ON HER SCALP codeine AdvReac Nausea & Verified 04/23/21 17:54 Vomiting Iodinated Contrast Media AdvReac 'PASSED Verified 04/23/21 17:54 [Iodinated Contrast Media - OUT'. IV Dye] FLUSHING. morphine AdvReac Nausea & Verified 04/23/21 17:54 Vomiting NSAIDS (Non-Steroidal AdvReac ulcers Verified 04/23/21 17:54 Anti-Inflamma theophylline anhydrous AdvReac INCREASED Verified 04/23/21 17:54 [From Álvaro-Dur] HEART RATE SYMPATHOMEIMETCICS AdvReac Unknown. Uncoded 05/03/20 02:36 PATIENT SPELLED THIS SEVERAL TIMES? Physical Exam Vitals: Vital Signs Temp Pulse Resp BP Pulse Ox 04/24/21 00:39 73 18 139/64 97 04/23/21 23:00 98.9 F 75 22 114/59 97 04/23/21 22:00 96 18 103/64 96 04/23/21 21:00 64 21 117/68 96 04/23/21 19:53 99.2 F 70 20 107/61 95 04/23/21 19:00 74 18 116/66 99 04/23/21 18:42 77 18 119/73 97 04/23/21 18:35 18 04/23/21 17:54 101.5 F H 80 18 123/65 94 L Intake and Output 04/23/21 04/23/21 04/24/21 14:59 22:59 06:59 Other: Weight 68.039 kg Results CBC & Chem 7: 04/23/21 18:28 04/23/21 18:28 Labs: Abnormal Lab Results - Last 24 Hours (Table) 04/23/21 04/23/21 04/23/21 Range/Units 18:28 18:28 18:28 WBC 13.0 H (3.8-10.6) k/uL Neutrophils # 10.8 H (1.3-7.7) k/uL APTT 21.8 L (22.0-30.0) sec Sodium 131 L (137-145) mmol/L Carbon Dioxide 18 L (22-30) mmol/L Glucose 132 H (74-99) mg/dL Plasma Lactic Acid Manas (0.7-2.0) mmol/L AST 139 H (14-36) U/L ALT 73 H (4-34) U/L Urine Appearance (Clear) Ur Squamous Epith Cells (0-4) /hpf Urine Bacteria (None) /hpf Urine Mucus (None) /hpf 04/23/21 04/23/21 Range/Units 18:28 21:25 WBC (3.8-10.6) k/uL Neutrophils # (1.3-7.7) k/uL APTT (22.0-30.0) sec Sodium (137-145) mmol/L Carbon Dioxide (22-30) mmol/L Glucose (74-99) mg/dL Plasma Lactic Acid Manas 3.6 H* (0.7-2.0) mmol/L AST (14-36) U/L ALT (4-34) U/L Urine Appearance Cloudy H (Clear) Ur Squamous Epith Cells 8 H (0-4) /hpf Urine Bacteria Occasional H (None) /hpf Urine Mucus Rare H (None) /hpf
[2021-04-24] MEDS ORDERED: HYDROcodone/APAP 5-325MG 1 EACH TAB PO STA (04:02)
[2021-04-24 04:19] LABS: Glucose,Whole Blood 108 mg/dL (75-99)
[2021-04-24] MEDS ORDERED: BACLOFEN 10 MG TAB PO PRN (08:13)
[2021-04-24] MEDS: INSULIN ASPART (NovoLOG) 100 UNIT/ML VIAL SQ SCH ×4 (08:28→21:13)
[2021-04-24 08:59] LABS: HCT 36.1 % (37.2-46.3); MCH 31.6 pg (27.0-32.0); MCHC 33.2 g/dL (32.0-37.0); Mean Platelet Volume 10.6 fL (9.5-12.2); Platelet Count 221 X 10*3/uL (140-440); RDW 12.9 % (11.5-14.5); WBC 8.82 X 10*3/uL (4.50-10.00)
[2021-04-24] MEDS: HEPARIN SODIUM,PORCINE/PF 5,000 UNIT/0.5 ML SYRINGE SQ SCH ×3 (09:03→23:35)
[2021-04-24] MEDS: CHOLECALCIFEROL 25 MCG (1000 IU) TABLET PO SCH (09:03)
[2021-04-24] MEDS: VERAPAMIL SR 240 MG TABLET.ER PO SCH (09:03)
[2021-04-24] MEDS: MULTIVITAMINS, THERA 1 EACH TAB PO SCH (09:03)
[2021-04-24] MEDS: HYDROcodone/APAP 7.5-325MG 1 EACH TAB PO SCH ×3 (09:04→21:59)
[2021-04-24] MEDS: CITALOPRAM HYDROBROMIDE 20 MG TAB PO SCH (09:04)
[2021-04-24] MEDS: FERROUS SULFATE 325 MG TAB PO SCH (09:04)
[2021-04-24] MEDS: lisinopriL 20 MG TAB PO SCH (09:04)
[2021-04-24] MEDS: PANTOPRAZOLE 40 MG TABLET PO SCH (09:05)
[2021-04-24 09:21] LABS: African American GFR (CKD) 98.9 (60.0-200.0); Albumin 4.2 g/dL (3.80-4.90); Albumin/Globulin Ratio 1.68 (1.60-3.17); Anion Gap 13.1 mmol/L (4.00-12.00); BUN/Creat Ratio 18.57 Ratio (12.00-20.00); Carbon Dioxide 19.9 mmol/L (21.6-31.8); Globulin 2.5 g/dL (1.6-3.3); Non-African American GFR(CKD) 85.4 (60.0-200.0); Potassium 4.1 mmol/L (3.5-5.5); Total Bilirubin 0.5 mg/dL (0.3-1.2); Total Protein 6.7 g/dL (6.2-8.2)
[2021-04-24] MEDS: SODIUM CHLORIDE 0.9% 1,000 ML IV SCH (13:47)
[2021-04-24] MEDS ORDERED: ONDANSETRON 4 MG/2 ML VIAL IVP PRN (17:58)
[2021-04-24 18:00] LABS: Glucose,Whole Blood 116 mg/dL (75-99)
[2021-04-24 18:02] LABS: C Reactive Protein 5.5 mg/dL (<1.0)
--- NOTE | 2021-04-24 18:07 | P.PN ---
<David Cesar - Last Filed: 04/24/21 17:53> Subjective Progress Note Date: 04/24/21 Hospital course: Patient is a 75-year-old female with a past medical history of hypertension, type II kmm-zpssbij-hzamefykd diabetes mellitus, and GERD. She presented to the emergency department on 04/23/21 with a chief complaint of fever and chills 1 day. Patient reports fever and chills have been accompanied by diaphoresis and body aches and that she has had to use 3+ blankets just while sitting on the couch and still is shivering. Patient denies having any recent illnesses or exposure to known ill contacts. She reports that she received her Covid vaccination Pfizer first dose in November and second dose in December. Patient positive for SIRS with temp 101.5F, heart rate 96, respiratory rate 21, WBC count of 13.0, and initial lactate of 3.6. Patient was given sepsis bolus and lactate decreasing down to 1.5. Covid PCR negative. Urinalysis was negative for infection. Chest x-ray also negative for acute cardiopulmonary process. Patient given Rocephin prophylactically and admitted under our services for fever of unknown origin. Physical exam: 04/24/21: Patient was seen and fully evaluated at the bedside this morning. She was sitting up on the edge of bed and showed no signs of acute distress. Respirations were even, regular, and unlabored on room air. She reports continued chills, diaphoresis, and body aches. Highest temp over past 24 hours was 101.5F. Patient denies dizziness, lightheadedness, changes in vision or hearing, sore throat or dysphasia, cough or congestion, shortness of breath, dyspnea with exertion, chest pain or palpitations, experiencing any abdominal pain, nausea, vomiting, having any changes in or difficulties with urinary or bowel function, denies having any noted rashes or wounds, and denies any other complaints. Vital signs reviewed and stable. General: Nontoxic, no distress and appears stated age. Derm: Skin warm and dry, normal coloration for ethnicity. Head: Atraumatic, normocephalic and symmetric. Eyes: EOMs intact, no lid lag, and anicteric sclera Mouth: no lip lesions, mucus membranes moist Cardiovascular: regular rate and rhythm with normal S1S2, no murmur, positive posterior tibial pulses bilaterally, and cap refill < 2 seconds. Lungs: Respirations even, regular, and unlabored on room air. Lungs CTA bilaterally, no rhonchi, no rales, no wheezing, and no accessory muscle usage. Abdominal: soft, nontender to palpation, no guarding, no appreciable organomegaly Ext: ROM intact. No gross muscle atrophy, no edema, no contractures Neuro: Speech clear, face symmetrical and CN II-XII grossly intact with no noted focal neuro deficits Psych: Alert and oriented to person, place, time, and situation. Appropriate and pleasant affect. Assessment and Plan of Care: SIRS with fever of unknown origin -Cepheid 4-Plex respiratory panel to be completed consisting of influenza A and B PCR, RSV, and repeat Covid 19 PCR. -Pro-calcitonin, CRP, ferritin, and LDH to be drawn. -Continue with gentle hydration with IV fluids. Continue with ceftriaxone pending further cultures and results. -Follow-up on blood cultures Lactic acidosis, resolved with fluids Type II whc-esrronz-dhjeapgvy diabetes mellitus -Hold oral glycemic medications in place patient on glycemic protocol with NovoLog sliding scale. Hypertension Monitor vital signs and continue daily medication regimen with lisinopril and verapamil Elevated liver enzymes -AST 139 and ALT 73 -Possibly secondary to SIRS -We will continue to monitor with repeat a.m. labs. CODE STATUS: Full code DVT prophylaxis: Heparin Discussed with: Patient and RN Anticipated discharge date: Clinical course to determine Anticipated discharge place: Home A total of 45 minutes was spent on the care of this complex patient more than 50% of the time was spent in counseling and care coordination. Objective - Vital Signs Vital signs: Vital Signs Temp 97.7 F 04/24/21 09:11 Pulse 80 04/24/21 09:11 Resp 18 04/24/21 09:11 BP 161/74 04/24/21 09:11 Pulse Ox 94 L 04/24/21 09:11 Intake & Output 04/23/21 04/24/21 04/24/21 18:59 06:59 18:59 Weight 68.039 kg 68.039 kg - Labs CBC & Chem 7: 04/24/21 04:36 04/24/21 04:36 Labs: Abnormal Lab Results - Last 24 Hours (Table) 04/23/21 04/23/21 04/23/21 Range/Units 18:28 18:28 18:28 WBC 13.0 H (3.8-10.6) k/uL RBC (4.10-5.20) X 10*6/uL Hct (37.2-46.3) % Neutrophils # 10.8 H (1.3-7.7) k/uL APTT 21.8 L (22.0-30.0) sec Sodium 131 L (137-145) mmol/L Carbon Dioxide 18 L (22-30) mmol/L Anion Gap (4.00-12.00) mmol/L Glucose 132 H (74-99) mg/dL POC Glucose (mg/dL) (75-99) mg/dL Plasma Lactic Acid Manas (0.7-2.0) mmol/L AST 139 H (14-36) U/L ALT 73 H (4-34) U/L Urine Appearance (Clear) Ur Squamous Epith Cells (0-4) /hpf Urine Bacteria (None) /hpf Urine Mucus (None) /hpf 04/23/21 04/23/21 04/24/21 Range/Units 18:28 21:25 04:18 WBC (3.8-10.6) k/uL RBC (4.10-5.20) X 10*6/uL Hct (37.2-46.3) % Neutrophils # (1.3-7.7) k/uL APTT (22.0-30.0) sec Sodium (137-145) mmol/L Carbon Dioxide (22-30) mmol/L Anion Gap (4.00-12.00) mmol/L Glucose (74-99) mg/dL POC Glucose (mg/dL) 108 H (75-99) mg/dL Plasma Lactic Acid Manas 3.6 H* (0.7-2.0) mmol/L AST (14-36) U/L ALT (4-34) U/L Urine Appearance Cloudy H (Clear) Ur Squamous Epith Cells 8 H (0-4) /hpf Urine Bacteria Occasional H (None) /hpf Urine Mucus Rare H (None) /hpf 04/24/21 04/24/21 Range/Units 04:36 04:36 WBC (3.8-10.6) k/uL RBC 3.80 L (4.10-5.20) X 10*6/uL Hct 36.1 L (37.2-46.3) % Neutrophils # (1.3-7.7) k/uL APTT (22.0-30.0) sec Sodium 133 L (137-145) mmol/L Carbon Dioxide 19.9 L (22-30) mmol/L Anion Gap 13.10 H (4.00-12.00) mmol/L Glucose (74-99) mg/dL POC Glucose (mg/dL) (75-99) mg/dL Plasma Lactic Acid Manas (0.7-2.0) mmol/L AST 86 H (14-36) U/L ALT 78 H (4-34) U/L Urine Appearance (Clear) Ur Squamous Epith Cells (0-4) /hpf Urine Bacteria (None) /hpf Urine Mucus (None) /hpf <Zenaida Chong - Last Filed: 04/24/21 18:24> Subjective David Cesar NP rendered care for this patient independently, reviewed the findings and plan as documented in the note above. I did not physically speak with or examine the patient on this date. Case reviewed and I suggested Cephid - 4 plex, Ferritind, CPR, and LDH, repeat CXR in AM to see if infiltrated develops. Objective - Vital Signs Vital signs: Vital Signs Temp 97.9 F 04/24/21 15:13 Pulse 80 04/24/21 15:13 Resp 20 04/24/21 15:13 BP 111/65 04/24/21 15:13 Pulse Ox 93 L 04/24/21 15:13 Intake & Output 04/23/21 04/24/21 04/24/21 18:59 06:59 18:59 Weight 68.039 kg 68.039 kg - Labs CBC & Chem 7: 04/24/21 04:36 04/24/21 04:36 Labs: Abnormal Lab Results - Last 24 Hours (Table) 04/23/21 04/23/21 04/23/21 Range/Units 18:28 18:28 18:28 WBC 13.0 H (3.8-10.6) k/uL RBC (4.10-5.20) X 10*6/uL Hct (37.2-46.3) % Neutrophils # 10.8 H (1.3-7.7) k/uL APTT 21.8 L (22.0-30.0) sec Sodium 131 L (137-145) mmol/L Carbon Dioxide 18 L (22-30) mmol/L Anion Gap (4.00-12.00) mmol/L Glucose 132 H (74-99) mg/dL POC Glucose (mg/dL) (75-99) mg/dL Plasma Lactic Acid Manas (0.7-2.0) mmol/L AST 139 H (14-36) U/L ALT 73 H (4-34) U/L Lactate Dehydrogenase (313-618) U/L C-Reactive Protein (<1.0) mg/dL Urine Appearance (Clear) Ur Squamous Epith Cells (0-4) /hpf Urine Bacteria (None) /hpf Urine Mucus (None) /hpf 04/23/21 04/23/21 04/24/21 Range/Units 18:28 21:25 04:18 WBC (3.8-10.6) k/uL RBC (4.10-5.20) X 10*6/uL Hct (37.2-46.3) % Neutrophils # (1.3-7.7) k/uL APTT (22.0-30.0) sec Sodium (137-145) mmol/L Carbon Dioxide (22-30) mmol/L Anion Gap (4.00-12.00) mmol/L Glucose (74-99) mg/dL POC Glucose (mg/dL) 108 H (75-99) mg/dL Plasma Lactic Acid Manas 3.6 H* (0.7-2.0) mmol/L AST (14-36) U/L ALT (4-34) U/L Lactate Dehydrogenase (313-618) U/L C-Reactive Protein (<1.0) mg/dL Urine Appearance Cloudy H (Clear) Ur Squamous Epith Cells 8 H (0-4) /hpf Urine Bacteria Occasional H (None) /hpf Urine Mucus Rare H (None) /hpf 04/24/21 04/24/21 04/24/21 Range/Units 04:36 04:36 04:36 WBC (3.8-10.6) k/uL RBC 3.80 L (4.10-5.20) X 10*6/uL Hct 36.1 L (37.2-46.3) % Neutrophils # (1.3-7.7) k/uL APTT (22.0-30.0) sec Sodium 133 L (137-145) mmol/L Carbon Dioxide 19.9 L (22-30) mmol/L Anion Gap 13.10 H (4.00-12.00) mmol/L Glucose (74-99) mg/dL POC Glucose (mg/dL) (75-99) mg/dL Plasma Lactic Acid Manas (0.7-2.0) mmol/L AST 86 H (14-36) U/L ALT 78 H (4-34) U/L Lactate Dehydrogenase 814 H (313-618) U/L C-Reactive Protein 5.5 H (<1.0) mg/dL Urine Appearance (Clear) Ur Squamous Epith Cells (0-4) /hpf Urine Bacteria (None) /hpf Urine Mucus (None) /hpf 04/24/21 Range/Units 17:58 WBC (3.8-10.6) k/uL RBC (4.10-5.20) X 10*6/uL Hct (37.2-46.3) % Neutrophils # (1.3-7.7) k/uL APTT (22.0-30.0) sec Sodium (137-145) mmol/L Carbon Dioxide (22-30) mmol/L Anion Gap (4.00-12.00) mmol/L Glucose (74-99) mg/dL POC Glucose (mg/dL) 116 H (75-99) mg/dL Plasma Lactic Acid Manas (0.7-2.0) mmol/L AST (14-36) U/L ALT (4-34) U/L Lactate Dehydrogenase (313-618) U/L C-Reactive Protein (<1.0) mg/dL Urine Appearance (Clear) Ur Squamous Epith Cells (0-4) /hpf Urine Bacteria (None) /hpf Urine Mucus (None) /hpf
[2021-04-24 20:44] LABS: Glucose,Whole Blood 119 mg/dL (75-99)
[2021-04-25 05:18] LABS: Ferritin 240.9 ng/mL (10.0-291.0)
[2021-04-25 07:59] LABS: Glucose,Whole Blood 116 mg/dL (75-99)
[2021-04-25] MEDS: INSULIN ASPART (NovoLOG) 100 UNIT/ML VIAL SQ SCH ×2 (08:10→11:41)
[2021-04-25] MEDS: SODIUM CHLORIDE 0.9% 1,000 ML IV SCH (08:28)
[2021-04-25] MEDS: HYDROcodone/APAP 7.5-325MG 1 EACH TAB PO SCH (08:29)
[2021-04-25] MEDS: lisinopriL 20 MG TAB PO SCH (08:29)
[2021-04-25] MEDS: PANTOPRAZOLE 40 MG TABLET PO SCH (08:29)
[2021-04-25] MEDS: MULTIVITAMINS, THERA 1 EACH TAB PO SCH (08:30)
[2021-04-25] MEDS: CITALOPRAM HYDROBROMIDE 20 MG TAB PO SCH (08:30)
[2021-04-25] MEDS: VERAPAMIL SR 240 MG TABLET.ER PO SCH (08:30)
[2021-04-25] MEDS: CHOLECALCIFEROL 25 MCG (1000 IU) TABLET PO SCH (08:30)
[2021-04-25] MEDS: FERROUS SULFATE 325 MG TAB PO SCH (08:30)
[2021-04-25] MEDS: HEPARIN SODIUM,PORCINE/PF 5,000 UNIT/0.5 ML SYRINGE SQ SCH (08:33)
--- NOTE | 2021-04-25 09:37 | P.DS ---
<David Cesar - Last Filed: 04/25/21 09:37> Providers Expected date of discharge: 04/25/21 Hospital Course: Discharge Diagnosis: SIRS, likely resulting from viral infection Lactic acidosis, resolved with fluids Type II aay-pwfmrmi-kjlfezoew diabetes mellitus Hypertension Elevated liver enzymes, improved Hospital Course: Patient is a 75-year-old female with a past medical history of hypertension, type II flr-qoewxbb-yrbxtcdsl diabetes mellitus, and GERD. She presented to the emergency department on 04/23/21 with a chief complaint of fever and chills 1 day. Patient reports fever and chills have been accompanied by diaphoresis and body aches and that she has had to use 3+ blankets just while sitting on the couch and still is shivering. Patient denies having any recent illnesses or exposure to known ill contacts. She reports that she received her Covid vaccination Pfizer first dose in November and second dose in December. Patient positive for SIRS with temp 101.5F, heart rate 96, respiratory rate 21, WBC count of 13.0, and initial lactate of 3.6. Patient was given sepsis bolus and lactate decreasing down to 1.5. Covid PCR negative. Urinalysis was negative for infection. Chest x-ray also negative for acute cardiopulmonary process. Patient given Rocephin prophylactically and admitted under our services for fever and SIRS. Cepheid 4-Plex respiratory panel resulting in influenza A and B negative, RSV negative, and Covid PCR negative. Repeat labs show resolution of leukocytosis. Pro-calcitonin 0.17. Patient has been afebrile for nearly 48 hours. Blood culture showing no growth after 24 hours. She denies having any further diaphoresis or chills. Reports mild body aches, but reports feeling significantly better. Vital signs have been stable. Patient shows no signs of acute distress. Patient being discharged home at this time and instructed to follow up outpatient with her PCP in 2 days. Physical exam: Patient was seen and fully evaluated at the bedside this morning. She was sitting up on the edge of bed and showed no signs of acute distress. Patient eating breakfast at this time.Respirations were even, regular, and unlabored on room air. She has remained afebrile for over 24 hour and denies dizziness, lightheadedness, changes in vision or hearing, sore throat or dysphasia, cough or congestion, shortness of breath, dyspnea with exertion, chest pain or palpitations, experiencing any abdominal pain, nausea, vomiting, having any changes in or difficulties with urinary or bowel function, denies having any noted rashes or wounds. Vital signs reviewed and stable. General: Nontoxic, no distress and appears stated age. Derm: Skin warm and dry, normal coloration for ethnicity. Head: Atraumatic, normocephalic and symmetric. Eyes: EOMs intact, no lid lag, and anicteric sclera Mouth: no lip lesions, mucus membranes moist Cardiovascular: regular rate and rhythm with normal S1S2, no murmur, positive posterior tibial pulses bilaterally, and cap refill < 2 seconds. Lungs: Respirations even, regular, and unlabored on room air. Lungs CTA bilaterally, no rhonchi, no rales, no wheezing, and no accessory muscle usage. Abdominal: soft, nontender to palpation, no guarding, no appreciable organomegaly Ext: ROM intact. No gross muscle atrophy, no edema, no contractures Neuro: Speech clear, face symmetrical and CN II-XII grossly intact with no noted focal neuro deficits Psych: Alert and oriented to person, place, time, and situation. Appropriate and pleasant affect. A total of 45 minutes of time were spent preparing this complex discharge summary. Patient Condition at Discharge: Stable Plan - Discharge Summary Discharge Rx Participant: No New Discharge Prescriptions: Continue metFORMIN HCL [Glucophage] 850 mg PO BID Cranberry Fruit Concentrate [Cranberry] 1 tab PO DAILY Verapamil HCl [Verapamil ER] 240 mg PO QAM Omeprazole 20 mg PO BID Baclofen [Lioresal] 10 mg PO DAILY PRN PRN Reason: Pain Iron 50 mg PO DAILY Multivit-Min/Iron/Folic/Lutein [Centrum Silver Women Tablet] 1 tab PO DAILY Hydrocodone/Acetaminophen [Defiance 7.5-325] 1 tab PO TID Cholecalciferol [Vitamin D3 (25 Mcg = 1000 Iu)] 50 mcg PO DAILY Ondansetron [Zofran] 4 mg PO Q8HR PRN PRN Reason: Vertigo Citalopram Hydrobromide [CeleXA] 40 mg PO DAILY Loperamide [Imodium] 2 mg PO QID PRN PRN Reason: Diarrhea Benazepril HCl [Lotensin] 20 mg PO DAILY Discharge Medication List Cranberry Fruit Concentrate [Cranberry] 1 tab PO DAILY 04/09/16 [History] Verapamil HCl [Verapamil ER] 240 mg PO QAM 04/09/16 [History] metFORMIN HCL [Glucophage] 850 mg PO BID 04/09/16 [History] Baclofen [Lioresal] 10 mg PO DAILY PRN 06/15/18 [History] Iron 50 mg PO DAILY 06/15/18 [History] Multivit-Min/Iron/Folic/Lutein [Centrum Silver Women Tablet] 1 tab PO DAILY 06/23 [History] Omeprazole 20 mg PO BID 06/15/18 [History] Benazepril HCl [Lotensin] 20 mg PO DAILY 04/24/21 [History] Cholecalciferol [Vitamin D3 (25 Mcg = 1000 Iu)] 50 mcg PO DAILY 04/24/21 [History] Citalopram Hydrobromide [CeleXA] 40 mg PO DAILY 04/24/21 [History] Hydrocodone/Acetaminophen [Def[place] 7.5-325] 1 tab PO TID 04/24/21 [History] Loperamide [Imodium] 2 mg PO QID PRN 04/24/21 [History] Ondansetron [Zofran] 4 mg PO Q8HR PRN 04/24/21 [History] Follow up Appointment(s)/Referral(s): Adeline Vines MD [Primary Care Provider] - 1-2 days Patient Instructions/Handouts: Sepsis (GEN) Activity/Diet/Wound Care/Special Instructions: Activity: As tolerated Diet: Heart healthy diet Special Instructions: Thank you for allowing us to participate in your care, it was a pleasure having you for our patient. Please follow-up with your primary care provider, Dr. Vines in 2 days for a posthospitalization follow-up visit. Discharge Disposition: HOME SELF-CARE <Zenaida Chong - Last Filed: 04/25/21 19:18> Providers Date of admission: 04/23/21 22:48 Attending physician: Jose Maciel MD Primary care physician: Adeline Vines [facility] Hospital Course: David Cesar NP rendered care for this patient independently, reviewed the findings and plan as documented in the note above. I did not physically speak with or examine the patient on this date.
[2021-04-25 11:33] LABS: Glucose,Whole Blood 125 mg/dL (75-99)
[2021-04-25 14:21] VITALS: BP 110/66; PULSE 71; RESP 16; TEMP 99.1
== END 2021-04-25 15:01 | disposition home or self-care (01) ==
LOC: EC 17:41 → 4SSUR 22:48 → 6NMEDSUR 04-24 03:08
PROVIDERS: ADMIT Internal Medicine; ATTEND Internal Medicine
DX: R50.9 Fever, unspecified (principal); D72.829 Elevated white blood cell count, unspecified; R65.10 Systemic inflammatory response syndrome (SIRS) of non-infectious origin without acute organ dysfunction; E87.2 Acidosis; R74.8 Abnormal levels of other serum enzymes; E11.9 Type 2 diabetes mellitus without complications; I10 Essential (primary) hypertension; J45.909 Unspecified asthma, uncomplicated; M06.9 Rheumatoid arthritis, unspecified; M79.7 Fibromyalgia; H26.9 Unspecified cataract; K44.9 Diaphragmatic hernia without obstruction or gangrene; K21.9 Gastro-esophageal reflux disease without esophagitis; Z20.822 Contact with and (suspected) exposure to COVID-19; Z79.84 Long term (current) use of oral hypoglycemic drugs; Z79.899 Other long term (current) drug therapy; Z88.6 Allergy status to analgesic agent; Z91.041 Radiographic dye allergy status; Z88.5 Allergy status to narcotic agent; Z88.0 Allergy status to penicillin; Z88.8 Allergy status to other drugs, medicaments and biological substances; Z91.048 Other nonmedicinal substance allergy status; Z87.728 Personal history of other specified (corrected) congenital malformations of nervous system and sense organs; Z90.49 Acquired absence of other specified parts of digestive tract; I25.2 Old myocardial infarction; Z87.19 Personal history of other diseases of the digestive system; Z96.60 Presence of unspecified orthopedic joint implant; Z98.51 Tubal ligation status; Z82.49 Family history of ischemic heart disease and other diseases of the circulatory system
CPT/HCPCS: 96361 ×3; 96372; 96375; 96365; 99285; 36415; 93005; 80053 ×2; 82728; 87040; 83605; 83615; 85025; 85027; 85610; 85730; 86140; 81001; 84145; 87635; 87636; 71045; G0378 ×4; J2405; J0696 ×2; J1644

== ENCOUNTER → 2021-12-24 | Outpatient (CLI) | payer MEDICARE ==
--- NOTE | 2021-12-25 09:46 | XR ---
EXAMINATION TYPE: XR chest 2V DATE OF EXAM: 12/24/2021 COMPARISON: 12/19/2021 TECHNIQUE: PA and lateral views submitted. HISTORY: Shortness of breath FINDINGS: The lungs are clear and there is no pneumothorax, pleural effusion, or focal pneumonia. Postsurgica l change right clavicle with diffuse coarsened interstitium correlate for pulmonary fibrosis. Heart m ildly enlarged and there is ectasia of the aorta with atherosclerotic changes scoliosis of the spine with degenerative changes. Suspect a large hiatal hernia. Diffuse osteopenia. IMPRESSION: 1. Correlate for pulmonary fibrosis. 2. Large hiatal hernia.
== END | disposition home or self-care (01) ==
LOC: RADXRMAIN 16:04
PROVIDERS: ATTEND Family Medicine
DX: K44.9 Diaphragmatic hernia without obstruction or gangrene (principal)
CPT/HCPCS: 71046

== ENCOUNTER 2021-12-31 20:41 | Inpatient (IN) | payer MEDICARE ==
--- NOTE | 2021-12-31 22:15 | ED ---
General Adult HPI - General Chief complaint: Shortness of Breath Stated complaint: ARTEM Time Seen by Provider: 12/31/21 21:49 Source: patient, family Mode of arrival: wheelchair Limitations: physical limitation - History of Present Illness Initial comments: Dictation was produced using [email or web address] dictation software. please excuse any grammatical, word or spelling errors. Chief Complaint: 76-year-old female with past medical history of coronary artery disease, diabetes, hypertension presents to the emergency department for chest pain and exertional dyspnea History of Present Illness: She does a 76-year-old female she states she was h ere in the hospital on Wednesday she was evaluated for similar issues. Patient states she is here today for exertional shortness of breath and dyspnea. Patient was seen here on December 19 for nausea, vomiting or lightheadedness. Cranial chart review there was concern that patient's having withdrawal's oxycodone or viral issue. Nonetheless she was discharged told to follow-up with her primary care doctor. She saw her primary care doctor who ordered her a stress test and hasn't been performed yet. He is concerned that patient is having symptoms secondary to either coronary artery disease or heart valve malfunction. Patient does have a mild nonproductive cough. Denies any fever or constitutional symptoms but she does report feeling sweaty throughout the day randomly. Patient states that her symptoms of exertional dyspnea and chest pain go away with rest. The ROS documented in this emergency department record has been reviewed and confirmed by me. Those systems with pertinent positive or negative responses have been documented in the HPI. All other systems are other negative and/or noncontributory. PHYSICAL EXAM: General Impression: Alert and oriented x3, not in acute distress HEENT: Normocephalic atraumatic, extra-ocular movements intact, pupils equal and reactive to light bilaterally, mucous membranes moist. Cardiovascular: Heart regular rate and rhythm Chest: Able to complete full sentences, no retractions, no tachypnea Abdomen: abdomen soft, non-tender, non-distended, no organomegaly Musculoskeletal: Pulses present and equal in all extremities, no peripheral edema Motor: no focal deficits noted Neurological: CN II-XII grossly intact, no focal motor or sensory deficits noted Skin: Intact with no visualized rashes Psych: Normal affect and mood ED course: 76-year-old female presents emergency department for exertional chest pain and dyspnea. Vital signs upon arrival are within acceptable limits.Laboratory evaluation obtained. Mild leukocytosis likely secondary to stress. Coag panel is unremarkable. Metabolic panel is negative. Troponin is negative. Chest x-ray is nonacute. Patient be admitted for cardiac monitoring, cardiology consultation and serial troponins. Patient be admitted to [facility] hospitalist group. EKG interpretation: Ventricular rate 90, sinus rhythm, ME interval 116, QS 106, QTC 425 there does appear to be ST depressions that are new compared to EKG from December 19 in the inferior leads., no QTC prolongation, no ST or T-wave changes noted. Pressor EKG is unchanged when compared to most previous EKG. Overall this EKG suggests cardiac ischemia without any signs of ST segment elevation [place]. - Related Data Home Medications Medication Instructions Recorded Confirmed Cranberry Fruit Concentrate 450 mg PO DAILY 04/09/16 12/31/21 [Cranberry] Verapamil HCl [Verapamil ER] 240 mg PO DAILY 04/09/16 12/31/21 metFORMIN HCL [Glucophage] 850 mg PO BID 04/09/16 12/31/21 Multivit-Min/Iron/Folic/Lutein 1 tab PO DAILY 06/15/18 12/31/21 [Centrum Silver Women Tablet] Benazepril HCl [Lotensin] 20 mg PO DAILY 04/24/21 12/31/21 Cholecalciferol [Vitamin D3 (25 50 mcg PO DAILY 04/24/21 12/31/21 Mcg = 1000 Iu)] Citalopram Hydrobromide [CeleXA] 40 mg PO DAILY 04/24/21 12/31/21 Iron(Unknown) 1 tab PO DAILY 12/31/21 12/31/21 Omeprazole 20 mg PO DAILY 12/31/21 12/31/21 Previous Rx's Medication Instructions Recorded Metoclopramide [Reglan] 5 mg PO TID PRN #20 tab 12/19/21 Allergies Allergy/AdvReac Type Severity Reaction Status Date / Time Penicillins Allergy Rash/Hives.HOT Verified 12/31/21 22:32 FLASH caffeine AdvReac INCREASED Verified 12/31/21 22:32 HEART RATE, TWITCHING ON HER SCALP codeine AdvReac Nausea & Verified 12/31/21 22:32 Vomiting Iodinated Contrast Media AdvReac 'PASSED Verified 12/31/21 22:32 [Iodinated Contrast Media - OUT'. IV Dye] FLUSHING. morphine AdvReac Nausea & Verified 12/31/21 22:32 Vomiting NSAIDS (Non-Steroidal AdvReac ulcers Verified 12/31/21 22:32 Anti-Inflamma theophylline anhydrous AdvReac INCREASED Verified 12/31/21 22:32 [From [facility]lvaro-Dur] HEART RATE SYMPATHOMEIMETCICS AdvReac Unknown. Uncoded 12/31/21 22:32 PATIENT SPELLED THIS SEVERAL TIMES? Review of Systems ROS Statement: Those systems with pertinent positive or pertinent negative responses have been documented in the HPI. ROS Other: All systems not noted in ROS Statement are negative. Past Medical History Past Medical History: Asthma, Diabetes Mellitus, Eye Disorder, Fibromyalgia, GERD/Reflux, GI Bleed, Hypertension, Myocardial Infarction ([place]), Rheumatoid Arthritis ([place]) Additional Past Medical History / Comment(s): unable to breath through nose,steroid injection Jun 2018 to back,cataracts maximus eyes,PAST UGI BLEED X3. HEART MURMUR.. Last Myocardial Infarction Date:: 2004 History of Any Multi-Drug Resistant Organisms: None Reported Past Surgical History: Cholecystectomy, Joint Replacement, Orthopedic Surgery, Tubal Ligation Additional Past Surgical History / Comment(s): RIGHT COLLAR BONE REPAIR ( DEFECT). LEFT TOTAL KNEE. Past Anesthesia/Blood Transfusion Reactions: Motion Sickness, Postoperative Nausea & Vomiting (PONV) Past Psychological History: No Psychological Hx Reported Smoking Status: Never smoker Past Alcohol Use History: None Reported Past Drug Use History: None Reported - Past Family History Mother Family Medical History: Hypertension General Exam Limitations: physical limitation Course Vital Signs 12/31/21 12/31/21 01/01/22 20:51 22:30 02:10 Temperature 98.1 F Pulse Rate 95 93 76 Pulse Rate [ Left Sitting] Respiratory 18 18 18 Rate Blood Pressure 103/56 121/91 152/70 Blood Pressure [Left Arm Sitting] O2 Sat by Pulse 96 96 98 Oximetry 01/01/22 01/01/22 01/01/22 04:45 05:00 05:15 Temperature 98.0 F Pulse Rate Pulse Rate [ 80 78 76 Left Sitting] Respiratory 18 20 20 Rate Blood Pressure Blood Pressure 118/75 116/73 117/75 [Left Arm Sitting] O2 Sat by Pulse 97 98 98 Oximetry 01/01/22 01/01/22 05:30 07:00 Temperature 98 F Pulse Rate 98 Pulse Rate [ 78 113 H Left Sitting] Respiratory 20 20 Rate Blood Pressure 137/76 Blood Pressure 120/78 147/72 [Left Arm Sitting] O2 Sat by Pulse 98 99 Oximetry Medical Decision Making - Lab Data Result diagrams: 01/02/22 04:36 01/02/22 04:36 Lab Results 12/31/21 12/31/21 12/31/21 Range/Units 22:33 22:33 22:33 WBC 14.1 H (3.8-10.6) k/uL RBC 3.06 L (3.80-5.40) m/uL Hgb 9.8 L (11.4-16.0) gm/dL Hct 30.7 L (34.0-46.0) % MCV 100.3 H (80.0-100.0) fL MCH 31.9 (25.0-35.0) pg MCHC 31.8 (31.0-37.0) g/dL RDW 13.6 (11.5-15.5) % Plt Count 397 (150-450) k/uL MPV 7.2 Immature Gran % (Auto) % Absolute Nucleated RBC (0.00-0.00) X 10*3/uL Neutrophils % 65 % Lymphocytes % 25 % Monocytes % 7 % Eosinophils % 1 % Basophils % 1 % Immature Gran # (0.00-0.04) X 10*3/uL Neutrophils # 9.2 H (1.3-7.7) k/uL Lymphocytes # 3.5 (1.0-4.8) k/uL Monocytes # 0.9 (0-1.0) k/uL Eosinophils # 0.1 (0-0.7) k/uL Basophils # 0.1 (0-0.2) k/uL NRBC/100 WBC Diff (0.0-0.0) /100 WBCS Hypochromasia Moderate Macrocytosis Slight Retic Count (0.10-1.80) % PT 10.8 (9.0-12.0) sec INR 1.0 (<1.2) APTT 22.6 (22.0-30.0) sec Sodium (137-145) mmol/L Potassium (3.5-5.1) mmol/L Chloride (98-107) mmol/L Carbon Dioxide (22-30) mmol/L Anion Gap mmol/L BUN (7-17) mg/dL Creatinine (0.52-1.04) mg/dL Est GFR (CKD-EPI)AfAm (>60 ml/min/1.73 sqM) Est GFR (CKD-EPI)NonAf (>60 ml/min/1.73 sqM) BUN/Creatinine Ratio (12.00-20.00) Ratio Glucose (74-99) mg/dL Calcium (8.4-10.2) mg/dL Iron (50-170) ug/dL TIBC (228-460) ug/dL % Saturation (12.00-45.00) Transferrin (204.0-354.0) mg/dL Ferritin (10.0-291.0) ng/mL Troponin I (0.000-0.034) ng/mL NT-Pro-B Natriuret Pep pg/mL Triglycerides (0.00-149.00) mg/dL Cholesterol (0.00-200.00) mg/dL LDL Cholesterol, Calc (0.0-131.0) mg/dL VLDL Cholesterol, Calc (5.00-40.00) mg/dL HDL Cholesterol (40.00-60.00) mg/dL Cholesterol/HDL Ratio Ratio Vitamin B12 (200.0-944.0) pg/mL Folate (4.40-31.00) ng/mL Urine Color Urine Appearance (Clear) Urine pH (5.0-8.0) Ur Specific [place] (1.001-1.035) Urine Protein (Negative) Urine Glucose (UA) (Negative) Urine Ketones (Negative) Urine Blood (Negative) Urine Nitrite (Negative) Urine Bilirubin (Negative) Urine Urobilinogen (<2.0) mg/dL Ur Leukocyte Esterase (Negative) Urine RBC (0-5) /hpf Urine WBC (0-5) /hpf Ur Squamous Epith Cells (0-4) /hpf Calcium Oxalate Crystal (None) /hpf Urine Bacteria (None) /hpf Hyaline Casts (0-2) /lpf Urine Mucus (None) /hpf Stool Occult Blood (Negative) Influenza Type A (PCR) Not Detected (Not Detectd) Influenza Type B (PCR) Not Detected (Not Detectd) RSV (PCR) Not Detected (Not Detectd) SARS-CoV-2 (PCR) Not Detected (Not Detectd) 0412/31/21 12/31/21 Range/Units 22:33 22:33 22:33 WBC (3.8-10.6) k/uL RBC (3.80-5.40) m/uL Hgb (11.4-16.0) gm/dL Hct (34.0-46.0) % MCV (80.0-100.0) fL MCH (25.0-35.0) pg MCHC (31.0-37.0) g/dL RDW (11.5-15.5) % Plt Count (150-450) k/uL MPV Immature Gran % (Auto) % Absolute Nucleated RBC (0.00-0.00) X 10*3/uL Neutrophils % % Lymphocytes % % Monocytes % % Eosinophils % % Basophils % % Immature Gran # (0.00-0.04) X 10*3/uL Neutrophils # (1.3-7.7) k/uL Lymphocytes # (1.0-4.8) k/uL Monocytes # (0-1.0) k/uL Eosinophils # (0-0.7) k/uL Basophils # (0-0.2) k/uL NRBC/100 WBC Diff (0.0-0.0) /100 WBCS Hypochromasia Macrocytosis Retic Count (0.10-1.80) % PT (9.0-12.0) sec INR (<1.2) APTT (22.0-30.0) sec Sodium 136 L (137-145) mmol/L Potassium 4.4 (3.5-5.1) mmol/L Chloride 104 (98-107) mmol/L Carbon Dioxide 23 (22-30) mmol/L Anion Gap 9 mmol/L BUN 30 H (7-17) mg/dL Creatinine 0.76 (0.52-1.04) mg/dL Est GFR (CKD-EPI)AfAm 89 (>60 ml/min/1.73 sqM) Est GFR (CKD-EPI)NonAf 77 (>60 ml/min/1.73 sqM) BUN/Creatinine Ratio (12.00-20.00) Ratio Glucose 104 H (74-99) mg/dL Calcium 8.8 (8.4-10.2) mg/dL Iron (50-170) ug/dL TIBC (228-460) ug/dL % Saturation (12.00-45.00) Transferrin (204.0-354.0) mg/dL Ferritin (10.0-291.0) ng/mL Troponin I <0.012 (0.000-0.034) ng/mL NT-Pro-B Natriuret Pep 119 pg/mL Triglycerides (0.00-149.00) mg/dL Cholesterol (0.00-200.00) mg/dL LDL Cholesterol, Calc (0.0-131.0) mg/dL VLDL Cholesterol, Calc (5.00-40.00) mg/dL HDL Cholesterol (40.00-60.00) mg/dL Cholesterol/HDL Ratio Ratio Vitamin B12 (200.0-944.0) pg/mL Folate (4.40-31.00) ng/mL Urine Color Urine Appearance (Clear) Urine pH (5.0-8.0) Ur Specific [place] (1.001-1.035) Urine Protein (Negative) Urine Glucose (UA) (Negative) Urine Ketones (Negative) Urine Blood (Negative) Urine Nitrite (Negative) Urine Bilirubin (Negative) Urine Urobilinogen (<2.0) mg/dL Ur Leukocyte Esterase (Negative) Urine RBC (0-5) /hpf Urine WBC (0-5) /hpf Ur Squamous Epith Cells (0-4) /hpf Calcium Oxalate Crystal (None) /hpf Urine Bacteria (None) /hpf Hyaline Casts (0-2) /lpf Urine Mucus (None) /hpf Stool Occult Blood (Negative) Influenza Type A (PCR) (Not Detectd) Influenza Type B (PCR) (Not Detectd) RSV (PCR) (Not Detectd) SARS-CoV-2 (PCR) (Not Detectd) 01/01/22 01/01/22 01/01/22 Range/Units 01:01 02:30 05:28 WBC (3.8-10.6) k/uL RBC (3.80-5.40) m/uL Hgb (11.4-16.0) gm/dL Hct (34.0-46.0) % MCV (80.0-100.0) fL MCH (25.0-35.0) pg MCHC (31.0-37.0) g/dL RDW (11.5-15.5) % Plt Count (150-450) k/uL MPV Immature Gran % (Auto) % Absolute Nucleated RBC (0.00-0.00) X 10*3/uL Neutrophils % % Lymphocytes % % Monocytes % % Eosinophils % % Basophils % % Immature Gran # (0.00-0.04) X 10*3/uL Neutrophils # (1.3-7.7) k/uL Lymphocytes # (1.0-4.8) k/uL Monocytes # (0-1.0) k/uL Eosinophils # (0-0.7) k/uL Basophils # (0-0.2) k/uL NRBC/100 WBC Diff (0.0-0.0) /100 WBCS Hypochromasia Macrocytosis Retic Count (0.10-1.80) % PT (9.0-12.0) sec INR (<1.2) APTT (22.0-30.0) sec Sodium (137-145) mmol/L Potassium (3.5-5.1) mmol/L Chloride (98-107) mmol/L Carbon Dioxide (22-30) mmol/L Anion Gap mmol/L BUN (7-17) mg/dL Creatinine (0.52-1.04) mg/dL Est GFR (CKD-EPI)AfAm (>60 ml/min/1.73 sqM) Est GFR (CKD-EPI)NonAf (>60 ml/min/1.73 sqM) BUN/Creatinine Ratio (12.00-20.00) Ratio Glucose (74-99) mg/dL Calcium (8.4-10.2) mg/dL Iron (50-170) ug/dL TIBC (228-460) ug/dL % Saturation (12.00-45.00) Transferrin (204.0-354.0) mg/dL Ferritin (10.0-291.0) ng/mL Troponin I <0.012 <0.012 (0.000-0.034) ng/mL NT-Pro-B Natriuret Pep pg/mL Triglycerides (0.00-149.00) mg/dL Cholesterol (0.00-200.00) mg/dL LDL Cholesterol, Calc (0.0-131.0) mg/dL VLDL Cholesterol, Calc (5.00-40.00) mg/dL HDL Cholesterol (40.00-60.00) mg/dL Cholesterol/HDL Ratio Ratio Vitamin B12 (200.0-944.0) pg/mL Folate (4.40-31.00) ng/mL Urine Color Yellow Urine Appearance Cloudy H (Clear) Urine pH 5.5 (5.0-8.0) Ur Specific [place] 1.030 (1.001-1.035) Urine Protein Trace H (Negative) Urine Glucose (UA) Negative (Negative) Urine Ketones Negative (Negative) Urine Blood Negative (Negative) Urine Nitrite Negative (Negative) Urine Bilirubin Negative (Negative) Urine Urobilinogen <2.0 (<2.0) mg/dL Ur Leukocyte Esterase Moderate H (Negative) Urine RBC 2 (0-5) /hpf Urine WBC 20 H (0-5) /hpf Ur Squamous Epith Cells 6 H (0-4) /hpf Calcium Oxalate Crystal Occasional H (None) /hpf Urine Bacteria Many H (None) /hpf Hyaline Casts 4 H (0-2) /lpf Urine Mucus Few H (None) /hpf Stool Occult Blood (Negative) Influenza Type A (PCR) (Not Detectd) Influenza Type B (PCR) (Not Detectd) RSV (PCR) (Not Detectd) SARS-CoV-2 (PCR) (Not Detectd) 01/01/22 01/01/22 01/01/22 Range/Units 05:28 05:28 05:28 WBC 12.44 H (3.8-10.6) k/uL RBC 2.82 L (3.80-5.40) m/uL Hgb 8.6 L (11.4-16.0) gm/dL Hct 28.0 L (34.0-46.0) % MCV 99.3 H (80.0-100.0) fL MCH 30.5 (25.0-35.0) pg MCHC 30.7 L (31.0-37.0) g/dL RDW 14.1 (11.5-15.5) % Plt Count 340 (150-450) k/uL MPV 9.8 Immature Gran % (Auto) 0.5 % Absolute Nucleated RBC 0 (0.00-0.00) X 10*3/uL Neutrophils % 58.5 % Lymphocytes % 31.8 % Monocytes % 8.0 % Eosinophils % 0.6 % Basophils % 0.6 % Immature Gran # 0.06 H (0.00-0.04) X 10*3/uL Neutrophils # 7.28 (1.3-7.7) k/uL Lymphocytes # 3.95 (1.0-4.8) k/uL Monocytes # 0.99 (0-1.0) k/uL Eosinophils # 0.08 (0-0.7) k/uL Basophils # 0.08 (0-0.2) k/uL NRBC/100 WBC Diff 0 (0.0-0.0) /100 WBCS Hypochromasia Macrocytosis Retic Count (0.10-1.80) % PT (9.0-12.0) sec INR (<1.2) APTT (22.0-30.0) sec Sodium (137-145) mmol/L Potassium (3.5-5.1) mmol/L Chloride (98-107) mmol/L Carbon Dioxide (22-30) mmol/L Anion Gap mmol/L BUN (7-17) mg/dL Creatinine (0.52-1.04) mg/dL Est GFR (CKD-EPI)AfAm (>60 ml/min/1.73 sqM) Est GFR (CKD-EPI)NonAf (>60 ml/min/1.73 sqM) BUN/Creatinine Ratio (12.00-20.00) Ratio Glucose (74-99) mg/dL Calcium (8.4-10.2) mg/dL Iron 33 L (50-170) ug/dL TIBC 412 (228-460) ug/dL % Saturation 8.04 L (12.00-45.00) Transferrin 294.0 (204.0-354.0) mg/dL Ferritin 23.0 (10.0-291.0) ng/mL Troponin I (0.000-0.034) ng/mL NT-Pro-B Natriuret Pep pg/mL Triglycerides 159.00 H (0.00-149.00) mg/dL Cholesterol 155.00 (0.00-200.00) mg/dL LDL Cholesterol, Calc 60.1 (0.0-131.0) mg/dL VLDL Cholesterol, Calc 31.80 (5.00-40.00) mg/dL HDL Cholesterol 63.10 H (40.00-60.00) mg/dL Cholesterol/HDL Ratio 2.46 Ratio Vitamin B12 250.0 (200.0-944.0) pg/mL Folate (4.40-31.00) ng/mL Urine Color Urine Appearance (Clear) Urine pH (5.0-8.0) Ur Specific [place] (1.001-1.035) Urine Protein (Negative) Urine Glucose (UA) (Negative) Urine Ketones (Negative) Urine Blood (Negative) Urine Nitrite (Negative) Urine Bilirubin (Negative) Urine Urobilinogen (<2.0) mg/dL Ur Leukocyte Esterase (Negative) Urine RBC (0-5) /hpf Urine WBC (0-5) /hpf Ur Squamous Epith Cells (0-4) /hpf Calcium Oxalate Crystal (None) /hpf Urine Bacteria (None) /hpf Hyaline Casts (0-2) /lpf Urine Mucus (None) /hpf Stool Occult Blood (Negative) Influenza Type A (PCR) (Not Detectd) Influenza Type B (PCR) (Not Detectd) RSV (PCR) (Not Detectd) SARS-CoV-2 (PCR) (Not Detectd) 01/01/22 01/02/22 01/02/22 Range/Units 05:28 04:36 04:36 WBC 10.00 (3.8-10.6) k/uL RBC 2.41 L (3.80-5.40) m/uL Hgb 7.4 L (11.4-16.0) gm/dL Hct 24.4 L (34.0-46.0) % MCV 101.2 H (80.0-100.0) fL MCH 30.7 (25.0-35.0) pg MCHC 30.3 L (31.0-37.0) g/dL RDW 14.0 (11.5-15.5) % Plt Count 298 (150-450) k/uL MPV 9.9 Immature Gran % (Auto) 0.3 % Absolute Nucleated RBC 0 (0.00-0.00) X 10*3/uL Neutrophils % 56.9 % Lymphocytes % 32.8 % Monocytes % 8.0 % Eosinophils % 1.5 % Basophils % 0.5 % Immature Gran # 0.03 (0.00-0.04) X 10*3/uL Neutrophils # 5.69 (1.3-7.7) k/uL Lymphocytes # 3.28 (1.0-4.8) k/uL Monocytes # 0.80 (0-1.0) k/uL Eosinophils # 0.15 (0-0.7) k/uL Basophils # 0.05 (0-0.2) k/uL NRBC/100 WBC Diff 0 (0.0-0.0) /100 WBCS Hypochromasia Macrocytosis Retic Count 5.23 H (0.10-1.80) % PT (9.0-12.0) sec INR (<1.2) APTT (22.0-30.0) sec Sodium 137 (137-145) mmol/L Potassium 4.1 (3.5-5.1) mmol/L Chloride 105 (98-107) mmol/L Carbon Dioxide 20.0 (22-30) mmol/L Anion Gap 12.00 mmol/L BUN 19.3 (7-17) mg/dL Creatinine 0.7 (0.52-1.04) mg/dL Est GFR (CKD-EPI)AfAm 98.2 (>60 ml/min/1.73 sqM) Est GFR (CKD-EPI)NonAf 84.8 (>60 ml/min/1.73 sqM) BUN/Creatinine Ratio 27.57 H (12.00-20.00) Ratio Glucose 92 (74-99) mg/dL Calcium 8.4 L (8.4-10.2) mg/dL Iron (50-170) ug/dL TIBC (228-460) ug/dL % Saturation (12.00-45.00) Transferrin (204.0-354.0) mg/dL Ferritin (10.0-291.0) ng/mL Troponin I (0.000-0.034) ng/mL NT-Pro-B Natriuret Pep pg/mL Triglycerides (0.00-149.00) mg/dL Cholesterol (0.00-200.00) mg/dL LDL Cholesterol, Calc (0.0-131.0) mg/dL VLDL Cholesterol, Calc (5.00-40.00) mg/dL HDL Cholesterol (40.00-60.00) mg/dL Cholesterol/HDL Ratio Ratio Vitamin B12 (200.0-944.0) pg/mL Folate >20.00 (4.40-31.00) ng/mL Urine Color Urine Appearance (Clear) Urine pH (5.0-8.0) Ur Specific [place] (1.001-1.035) Urine Protein (Negative) Urine Glucose (UA) (Negative) Urine Ketones (Negative) Urine Blood (Negative) Urine Nitrite (Negative) Urine Bilirubin (Negative) Urine Urobilinogen (<2.0) mg/dL Ur Leukocyte Esterase (Negative) Urine RBC (0-5) /hpf Urine WBC (0-5) /hpf Ur Squamous Epith Cells (0-4) /hpf Calcium Oxalate Crystal (None) /hpf Urine Bacteria (None) /hpf Hyaline Casts (0-2) /lpf Urine Mucus (None) /hpf Stool Occult Blood (Negative) Influenza Type A (PCR) (Not Detectd) Influenza Type B (PCR) (Not Detectd) RSV (PCR) (Not Detectd) SARS-CoV-2 (PCR) (Not Detectd) 01/02/22 Range/Units 11:30 WBC (3.8-10.6) k/uL RBC (3.80-5.40) m/uL Hgb (11.4-16.0) gm/dL Hct (34.0-46.0) % MCV (80.0-100.0) fL MCH (25.0-35.0) pg MCHC (31.0-37.0) g/dL RDW (11.5-15.5) % Plt Count (150-450) k/uL MPV Immature Gran % (Auto) % Absolute Nucleated RBC (0.00-0.00) X 10*3/uL Neutrophils % % Lymphocytes % % Monocytes % % Eosinophils % % Basophils % % Immature Gran # (0.00-0.04) X 10*3/uL Neutrophils # (1.3-7.7) k/uL Lymphocytes # (1.0-4.8) k/uL Monocytes # (0-1.0) k/uL Eosinophils # (0-0.7) k/uL Basophils # (0-0.2) k/uL NRBC/100 WBC Diff (0.0-0.0) /100 WBCS Hypochromasia Macrocytosis Retic Count (0.10-1.80) % PT (9.0-12.0) sec INR (<1.2) APTT (22.0-30.0) sec Sodium (137-145) mmol/L Potassium (3.5-5.1) mmol/L Chloride (98-107) mmol/L Carbon Dioxide (22-30) mmol/L Anion Gap mmol/L BUN (7-17) mg/dL Creatinine (0.52-1.04) mg/dL Est GFR (CKD-EPI)AfAm (>60 ml/min/1.73 sqM) Est GFR (CKD-EPI)NonAf (>60 ml/min/1.73 sqM) BUN/Creatinine Ratio (12.00-20.00) Ratio Glucose (74-99) mg/dL Calcium (8.4-10.2) mg/dL Iron (50-170) ug/dL TIBC (228-460) ug/dL % Saturation (12.00-45.00) Transferrin (204.0-354.0) mg/dL Ferritin (10.0-291.0) ng/mL Troponin I (0.000-0.034) ng/mL NT-Pro-B Natriuret Pep pg/mL Triglycerides (0.00-149.00) mg/dL Cholesterol (0.00-200.00) mg/dL LDL Cholesterol, Calc (0.0-131.0) mg/dL VLDL Cholesterol, Calc (5.00-40.00) mg/dL HDL Cholesterol (40.00-60.00) mg/dL Cholesterol/HDL Ratio Ratio Vitamin B12 (200.0-944.0) pg/mL Folate (4.40-31.00) ng/mL Urine Color Urine Appearance (Clear) Urine pH (5.0-8.0) Ur Specific [place] (1.001-1.035) Urine Protein (Negative) Urine Glucose (UA) (Negative) Urine Ketones (Negative) Urine Blood (Negative) Urine Nitrite (Negative) Urine Bilirubin (Negative) Urine Urobilinogen (<2.0) mg/dL Ur Leukocyte Esterase (Negative) Urine RBC (0-5) /hpf Urine WBC (0-5) /hpf Ur Squamous Epith Cells (0-4) /hpf Calcium Oxalate Crystal (None) /hpf Urine Bacteria (None) /hpf Hyaline Casts (0-2) /lpf Urine Mucus (None) /hpf Stool Occult Blood Positive H (Negative) Influenza Type A (PCR) (Not Detectd) Influenza Type B (PCR) (Not Detectd) RSV (PCR) (Not Detectd) SARS-CoV-2 (PCR) (Not Detectd) Disposition Clinical Impression: Chest pain Disposition: ADMITTED IP TO THIS HOSP Condition: Fair
[2021-12-31] MEDS ORDERED: ASPIRIN 81 MG PO STA (22:30)
--- NOTE | 2021-12-31 22:32 | XR ---
EXAMINATION TYPE: XR chest 2V DATE OF EXAM: 12/31/2021 COMPARISON: 12/24/2021 HISTORY: Chest pain TECHNIQUE: 2 views FINDINGS: Heart is normal. Lungs are clear of consolidation. There is some coarsening of interstitial markings. There is a plate with screws fixing the right clavicle. No pleural effusion. There are bety st leads. There is hiatal hernia. IMPRESSION: Mild pulmonary fibrosis. No acute lung disease. No change.
[2021-12-31] MEDS ORDERED: NITROGLYCERIN SL TABS 0.4 MG TAB SUBLINGUAL PRN (22:58)
[2021-12-31 22:59] LABS: Basophils # (A) 0.1 k/uL (0-0.2); Basophils % (A) 1 %; Eosinophils # (A) 0.1 k/uL (0-0.7); Eosinophils % (A) 1 %; HCT 30.7 % (34.0-46.0); HGB 9.8 gm/dL (11.4-16.0); Hypochromasia Moderate; Lymphocytes # (A) 3.5 k/uL (1.0-4.8); Lymphocytes % (A) 25 %; MCH 31.9 pg (25.0-35.0); MCHC 31.8 g/dL (31.0-37.0); MCV 100.3 fL (80.0-100.0); Macrocytosis Slight; Mean Platelet Volume 7.2; Monocytes # (A) 0.9 k/uL (0-1.0); Monocytes % (A) 7 %; Neutrophils # (A) 9.2 k/uL (1.3-7.7); Neutrophils % (A) 65 %; Platelet Count 397 k/uL (150-450); RBC 3.06 m/uL (3.80-5.40); RDW 13.6 % (11.5-15.5); WBC 14.1 k/uL (3.8-10.6)
[2021-12-31 23:14] LABS: Partial Thromboplastin Time 22.6 sec (22.0-30.0); Prothrombin Time 10.8 sec (9.0-12.0)
[2021-12-31 23:23] LABS: Calcium 8.8 mg/dL (8.4-10.2); Potassium 4.4 mmol/L (3.5-5.1)
[2022-01-01] MEDS ORDERED: METOCLOPRAMIDE 5 MG TAB PO PRN (00:04)
[2022-01-01 02:55] LABS: Appearance,Urine Cloudy (Clear); Bacteria,Urine Many /hpf; Bilirubin,Urine Negative (Negative); Blood,Urine Negative (Negative); Calcium Oxalate Crystals,Urine Occasional /hpf; Color,Urine Yellow; Glucose,Urine (UA) Negative (Negative); Hyaline Casts,Urine 4 /lpf (0-2); Ketones,Urine Negative (Negative); Leukocyte Esterase,Urine Moderate (Negative); Mucus,Urine Few /hpf; Nitrite,Urine Negative (Negative); PH, Urine 5.5 (5.0-8.0); Protein,Urine Trace (Negative); RBC,Urine 2 /hpf (0-5); Squamous Epithelial Cell,Urine 6 /hpf (0-4); Urobilinogen,Urine <2.0 mg/dL (<2.0); WBC,Urine 20 /hpf (0-5)
[2022-01-01] MEDS: SODIUM CHLORIDE 0.9% 1,000 ML IV SCH ×2 (08:24→16:22)
[2022-01-01] MEDS ORDERED: ASPIRIN 325 MG TAB PO SCH (09:00)
--- NOTE | 2022-01-01 09:17 | P.CRDCN ---
History of Present Illness History of present illness: HISTORY OF PRESENTING ILLNESS This is a pleasant 76-year-old female past medical history significant for type 2 diabetes, hypertension, dyslipidemia, was told she had an MT 10+ years ago but no cardiac catheterization was performed. 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 She did see Dr. Castro in 2016 in the office. We have been asked to see in consultation for chest pain. Patient presents emergency department with complaints of generalized fatigue, exertional fatigue and shortness of breath. She states that she's been having the symptoms for about 1 month. She states over the past month she has been unable to walk around her apartment due to fatigue. She also endorses black stools about 3 days ago, that have resolved. She endorses constant burning chest pain, that she states is due to her acid reflux. She states she gets this burning chest pain throughout the day, it is non-radiating, non-exertional. No specific aggravating factors. She states she takes omeprazole with some relief. She denies any associated nausea, vomiting. She recently presented to the emergency department on 12/19/21 with similar complaints of generalized weakness, lightheadedness, shortness of breath, nausea and vomiting. At that time she states that she had difficulty getting her medications due to her clinic closing and unable to get prescriptions. Patient was discharged. She states she follow up with her primary care provider, was able to get her medications refilled and was told to set up an outpatient stress test as well for her chest pain. Patient denies any history of stroke. She is a never/non-smoker. Denies alcohol use. DIAGNOSTICS EKG reveals sinus rhythm, heart rate 90, short NJ, poor R wave progression, nonspecific STT wave abnormalities inferior and anterior leads, possible prior MT. Prior EKG in 2020 with similar findings Telemetry tracings not available Chest xray mild pulmonary fibrosis, no acute cardiopulmonary process Laboratory reviewed, WBC 14.1, heme low 9.8, platelets 397, sodium 136, potassium 4.4, BUN 30, serum crit 0.7, proBNP 119, troponin negative 3, Influenza, RSV and Covid-19 negative Current cardiac medications include verapamil 240 mg daily, Pentasa protocol 20 mg daily Most recent stress test in 02/2016 was due to dobutamine stress echo which was negative Most recent echocardiogram in 2019 revealed an EF of 5560 percent, mild aortic regurgitation, mild mitral regurgitation, tricuspid regurgitation REVIEW OF SYSTEMS At the time of my exam: CONSTITUTIONAL: Denies fever or chills. CARDIOVASCULAR: Denies chest pain, shortness of breath, orthopnea, PND or palpitations. RESPIRATORY: Denies cough. GASTROINTESTINAL: Denies abdominal pain, diarrhea, constipation, nausea or vomiting. MUSCULOSKELETAL: Denies myalgias. NEUROLOGIC: Denies numbness, tingling, headacbe or weakness. ENDOCRINE: Denies fatigue, weight change, polydipsia or polyurina. GENITOURINARY: Denies burning, hematuria or urgency with micturation. HEMATOLOGIC: Denies history of anemia or bleeding. PHYSICAL EXAMINATION Blood pressure 147/72, heart rate 98, afebrile, saturations 99% on room air CONSTITUTIONAL: No apparent distress. HEENT: Head is normocephalic. Pupils are equal, round. Sclerae anicteric. Mucous membranes of the mouth are moist. No JVD. CHEST EXAMINATION: Lungs are clear to auscultation. No chest wall tenderness is noted on palpation or with deep breathing. HEART EXAMINATION: Regular rate and rhythm. S1, S2 heard. Systolic murmur noted at the apex. ABDOMEN: Soft, nontender. Positive bowel sounds. EXTREMITIES: 2+ peripheral pulses, no lower extremity edema and no calf tenderness. NEUROLOGIC EXAMINATION: Patient is awake, alert and oriented x3. ASSESSMENT Chest discomfort, appears non-cardiac in nature, acute coronary syndrome has been ruled out Anemia Black stools reported per patient Type 2 Diabetes Hypertension Dyslipidemia PLAN An acute coronary event has been ruled out with no EKG evidence of ischemia and negative cardiac enzymes. Obtain 2D echocardiogram and doppler study to assess cardiac structure and function. Recommend anemia workup Recommend surgery consult for possible scope if indicated Continue IV fluids Continue Lisionpril 20mg daily Further recommendations based on clinical course Nurse practitioner note has been reviewed by physician. Signing provider agrees with the documented findings, assessment, and plan of care. Past Medical History Past Medical History: Asthma, Diabetes Mellitus, Eye Disorder, Fibromyalgia, GERD/Reflux, GI Bleed, Hypertension, Myocardial Infarction ([place]), Rheumatoid Arthritis (RA) Additional Past Medical History / Comment(s): unable to breath through nose,steroid injection Jun 2018 to back,cataracts maximus eyes,PAST UGI BLEED X3. HEART MURMUR.. Last Myocardial Infarction Date:: 2004 History of Any Multi-Drug Resistant Organisms: None Reported Past Surgical History: Cholecystectomy, Joint Replacement, Orthopedic Surgery, T ubal Ligation Additional Past Surgical History / Comment(s): RIGHT COLLAR BONE REPAIR ( DEFECT). LEFT TOTAL KNEE. Past Anesthesia/Blood Transfusion Reactions: Motion Sickness, Postoperative Nausea & Vomiting (PONV) Past Psychological History: No Psychological Hx Reported Smoking Status: Never smoker Past Alcohol Use History: None Reported Past Drug Use History: None Reported - Past Family History Mother Family Medical History: Hypertension Medications and Allergies Home Medications Medication Instructions Recorded Confirmed Type Cranberry Fruit Concentrate 450 mg PO DAILY 04/09/16 12/31/21 History [Cranberry] Verapamil HCl [Verapamil ER] 240 mg PO DAILY 04/09/16 12/31/21 History metFORMIN HCL [Glucophage] 850 mg PO BID 04/09/16 12/31/21 History Multivit-Min/Iron/Folic/Lutein 1 tab PO DAILY 06/15/18 12/31/21 History [Centrum Silver Women Tablet] Benazepril HCl [Lotensin] 20 mg PO DAILY 04/24/21 12/31/21 History Cholecalciferol [Vitamin D3 (25 50 mcg PO DAILY 04/24/21 12/31/21 History Mcg = 1000 Iu)] Citalopram Hydrobromide [CeleXA] 40 mg PO DAILY 04/24/21 12/31/21 History Metoclopramide [Reglan] 5 mg PO TID PRN #20 tab 12/19/21 12/31/21 Rx Iron(Unknown) 1 tab PO DAILY 12/31/21 12/31/21 History Omeprazole 20 mg PO DAILY 12/31/21 12/31/21 History Allergies Allergy/AdvReac Type Severity Reaction Status Date / Time Penicillins Allergy Rash/Hives.HOT Verified 12/31/21 22:32 FLASH caffeine AdvReac INCREASED Verified 12/31/21 22:32 HEART RATE, TWITCHING ON HER SCALP codeine AdvReac Nausea & Verified 12/31/21 22:32 Vomiting Iodinated Contrast Media AdvReac 'PASSED Verified 12/31/21 22:32 [Iodinated Contrast Media - OUT'. IV Dye] FLUSHING. morphine AdvReac Nausea & Verified 12/31/21 22:32 Vomiting NSAIDS (Non-Steroidal AdvReac ulcers Verified 12/31/21 22:32 Anti-Inflamma theophylline anhydrous AdvReac INCREASED Verified 12/31/21 22:32 [From Álvaro-Dur] HEART RATE SYMPATHOMEIMETCICS AdvReac Unknown. Uncoded 12/31/21 22:32 PATIENT SPELLED THIS SEVERAL TIMES? Physical Exam Vitals: Vital Signs Temp Pulse Pulse Resp BP BP Pulse Ox 01/01/22 07:00 98 F 113 H 20 147/72 99 01/01/22 05:30 98 18 137/76 96 01/01/22 02:10 76 18 152/70 98 12/31/21 22:30 93 18 121/91 96 12/31/21 20:51 98.1 F 95 18 103/56 96 Intake and Output 12/31/21 01/01/22 01/01/22 22:59 06:59 14:59 Other: Weight 68.039 kg Results 12/31/21 22:33 12/31/21 22:33 Cardiac Enzymes 12/31/21 01/01/22 01/01/22 Range/Units 22:33 01:01 05:28 Troponin I <0.012 <0.012 <0.012 (0.000-0.034) ng/mL Coagulation 12/31/21 Range/Units 22:33 PT 10.8 (9.0-12.0) sec APTT 22.6 (22.0-30.0) sec CBC 12/31/21 Range/Units 22:33 WBC 14.1 H (3.8-10.6) k/uL RBC 3.06 L (3.80-5.40) m/uL Hgb 9.8 L (11.4-16.0) gm/dL Hct 30.7 L (34.0-46.0) % Plt Count 397 (150-450) k/uL Comprehensive Metabolic Panel 12/31/21 Range/Units 22:33 Sodium 136 L (137-145) mmol/L Potassium 4.4 (3.5-5.1) mmol/L Chloride 104 (98-107) mmol/L Carbon Dioxide 23 (22-30) mmol/L BUN 30 H (7-17) mg/dL Creatinine 0.76 (0.52-1.04) mg/dL Glucose 104 H (74-99) mg/dL Calcium 8.8 (8.4-10.2) mg/dL Current Medications Generic Name Dose Route Start Last Admin Trade Name Freq PRN Reason Stop Dose Admin Aspirin 81 mg 01/01/22 09:00 Aspirin 81 Mg PO DAILY [facility] Citalopram Hydrobromide 40 mg 01/01/22 09:00 Citalopram Hydrobromide 20 Mg Tab PO DAILY [facility] Sodium Chloride 1,000 mls @ 75 mls/hr 01/01/22 00:15 01/01/22 08:24 Saline 0.9% IV 75 mls/hr .[id number] [facility] Administration Lisinopril 20 mg 01/01/22 09:00 Lisinopril 20 Mg Tab PO DAILY [facility] Metformin HCl 850 mg 01/01/22 09:00 Metformin 850 Mg Tab PO BID [facility] Metoclopramide HCl 5 mg 01/01/22 00:04 Metoclopramide 5 Mg Tab PO TID PRN Nausea And Vomiting Nitroglycerin 0.4 mg 12/31/21 22:58 Nitroglycerin Sl Tabs 0.4 Mg Tab SUBLINGUAL Q5M PRN Chest Pain Intake and Output 12/31/21 01/01/22 01/01/22 22:59 06:59 14:59 Other: Weight 68.039 kg 12/31/21 22:33 12/31/21 22:33
--- NOTE | 2022-01-01 09:19 | P.HPIM ---
History of Present Illness This is a pleasant 76 years old female with past medical history of type 2 diabetes mellitus, Asthma, , Fibromyalgia, GERD, GI Bleed, Hypertension, Rheumatoid Arthritis , patient states that she ran out of her omeprazole and her PCP refused prescribe her more for the last 1 month. She could not give good reason why she did not get her omeprazole. She was taking it for history of acid reflux, she had an EGD at [facility] about 8 years ago as she states and she has unremarkable colonoscopy about 3-4 years ago as she states. She presents because of severe weakness and tiredness,, some burning chest pain about 4/10 in severity, central, nonradiating has been going on for the last 2 weeks associated with some throat discomfort. Also she noticed black stool the last 4 days. She has headache and she uses Tylenol and Excedrin on and off for the last few days. Also she vomited one time 2 days ago and there was no blood in it. She denies smoking, alcohol or illicit drugs Hemodynamically stable she is slightly tachycardic around 113 this morning. BMP is unremarkable. ProBNP 119, troponin 3 are negative. WBCs showing elevation at 14.1. Hemoglobin 9.8 dropped from last time 11.2 on 12/19. Before that was 12-13. INR 1.0. Urine analysis is suspicious for infection. Influenza, RSV, complete reagan vv: undetected Chest x-ray: Minimal pulmonary fibrosis, no acute event. EKG showing normal sinus rhythm at [address]-T changes Review of Systems CONSTITUTIONAL: No fever, no malaise, no fatigue. HEENT: No recent visual problems or hearing problems. Denied any sore throat. CARDIOVASCULAR: No orthopnea, PND, no palpitations, no syncope. PULMONARY: No shortness of breath, no cough, no hemoptysis. GASTROINTESTINAL: No diarrhea, no nausea, no vomiting, no abdominal pain. Normoactive bowel sounds. NEUROLOGICAL: No headaches, no weakness, no numbness. HEMATOLOGICAL: Denies any bleeding or petechiae. GENITOURINARY: Denies any burning micturition, frequency, or urgency. MUSCULOSKELETAL/RHEUMATOLOGICAL: Denies any joint pain, swelling, or any muscle pain. ENDOCRINE: Denies any polyuria or polydipsia. Past Medical History Past Medical History: Asthma, Diabetes Mellitus, Eye Disorder, Fibromyalgia, GERD/Reflux, GI Bleed, Hypertension, Myocardial Infarction ([place]), Rheumatoid Arthritis (RA) Additional Past Medical History / Comment(s): unable to breath through nose,steroid injection Jun 2018 to back,cataracts maximus eyes,PAST UGI BLEED X3. HEART MURMUR.. Last Myocardial Infarction Date:: 2004 History of Any Multi-Drug Resistant Organisms: None Reported Past Surgical History: Cholecystectomy, Joint Replacement, Orthopedic Surgery, Tubal Ligation Additional Past Surgical History / Comment(s): RIGHT COLLAR BONE REPAIR ( DEFECT). LEFT TOTAL KNEE. Past Anesthesia/Blood Transfusion Reactions: Motion Sickness, Postoperative Nausea & Vomiting (PONV) Past Psychological History: No Psychological Hx Reported Smoking Status: Never smoker Past Alcohol Use History: None Reported Past Drug Use History: None Reported - Past Family History Mother Family Medical History: Hypertension Medications and Allergies Home Medications Medication Instructions Recorded Confirmed Type Cranberry Fruit Concentrate 450 mg PO DAILY 04/09/16 12/31/21 History [Cranberry] Verapamil HCl [Verapamil ER] 240 mg PO DAILY 04/09/16 12/31/21 History metFORMIN HCL [Glucophage] 850 mg PO BID 04/09/16 12/31/21 History Multivit-Min/Iron/Folic/Lutein 1 tab PO DAILY 06/15/18 12/31/21 History [Centrum Silver Women Tablet] Benazepril HCl [Lotensin] 20 mg PO DAILY 04/24/21 12/31/21 History Cholecalciferol [Vitamin D3 (25 50 mcg PO DAILY 04/24/21 12/31/21 History Mcg = 1000 Iu)] Citalopram Hydrobromide [CeleXA] 40 mg PO DAILY 04/24/21 12/31/21 History Metoclopramide [Reglan] 5 mg PO TID PRN #20 tab 12/19/21 12/31/21 Rx Iron(Unknown) 1 tab PO DAILY 12/31/21 12/31/21 History Omeprazole 20 mg PO DAILY 12/31/21 12/31/21 History Allergies Allergy/AdvReac Type Severity Reaction Status Date / Time Penicillins Allergy Rash/Hives.HOT Verified 12/31/21 22:32 FLASH caffeine AdvReac INCREASED Verified 12/31/21 22:32 HEART RATE, TWITCHING ON HER SCALP codeine AdvReac Nausea & Verified 12/31/21 22:32 Vomiting Iodinated Contrast Media AdvReac 'PASSED Verified 12/31/21 22:32 [Iodinated Contrast Media - OUT'. IV Dye] FLUSHING. morphine AdvReac Nausea & Verified 12/31/21 22:32 Vomiting NSAIDS (Non-Steroidal AdvReac ulcers Verified 12/31/21 22:32 Anti-Inflamma theophylline anhydrous AdvReac INCREASED Verified 12/31/21 22:32 [From Álvaro-Dur] HEART RATE SYMPATHOMEIMETCICS AdvReac Unknown. Uncoded 12/31/21 22:32 PATIENT SPELLED THIS SEVERAL TIMES? Physical Exam Vitals: Vital Signs Temp Pulse Pulse Resp BP BP Pulse Ox 01/01/22 07:00 98 F 113 H 20 147/72 99 01/01/22 05:30 98 18 137/76 96 01/01/22 02:10 76 18 152/70 98 12/31/21 22:30 93 18 121/91 96 12/31/21 20:51 98.1 F 95 18 103/56 96 Intake and Output 12/31/21 01/01/22 01/01/22 22:59 06:59 14:59 Other: Weight 68.039 kg GENERAL: The patient is alert and oriented x3, not in any acute distress. Well developed, well nourished. HEENT: Pupils are round and equally reacting to light. EOMI. No scleral icterus. No conjunctival pallor. Normocephalic, atraumatic. No pharyngeal erythema. No thyromegaly. CARDIOVASCULAR: S1 and S2 present. No murmurs, rubs, or gallops. PULMONARY: Chest is clear to auscultation, no wheezing or crackles. ABDOMEN: Soft, nontender, nondistended, normoactive bowel sounds. No palpable organomegaly. MUSCULOSKELETAL: No joint swelling or deformity. EXTREMITIES: No cyanosis, clubbing, or pedal edema. NEUROLOGICAL: Gross neurological examination did not reveal any focal deficits. SKIN: No rashes. No petechiae Results CBC & Chem 7: 12/31/21 22:33 12/31/21 22:33 Labs: Abnormal Lab Results - Last 24 Hours (Table) 12/31/21 12/31/21 01/01/22 Range/Units 22:33 22:33 02:30 WBC 14.1 H (3.8-10.6) k/uL RBC 3.06 L (3.80-5.40) m/uL Hgb 9.8 L (11.4-16.0) gm/dL Hct 30.7 L (34.0-46.0) % MCV 100.3 H (80.0-100.0) fL Neutrophils # 9.2 H (1.3-7.7) k/uL Sodium 136 L (137-145) mmol/L BUN 30 H (7-17) mg/dL Glucose 104 H (74-99) mg/dL Urine Appearance Cloudy H (Clear) Urine Protein Trace H (Negative) Ur Leukocyte Esterase Moderate H (Negative) Urine WBC 20 H (0-5) /hpf Ur Squamous Epith Cells 6 H (0-4) /hpf Calcium Oxalate Crystal Occasional H (None) /hpf Urine Bacteria Many H (None) /hpf Hyaline Casts 4 H (0-2) /lpf Urine Mucus Few H (None) /hpf Assessment and Plan Assessment: Acute symptomatic Anemia, rule out GI bleed Chest pain, rule out cardiac causes Possible acute urinary tract infection hypertension Diabetes mellitus, type II History of GERD History of asthma History of GI bleed History of rheumatoid arthritis Plan: This is a pleasant 76% old female presents with chest pain and anemia Cardiology consult Continue with aspirin 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 Continue same treatment. Continue with symptomatic treatment. Resume home medication. Monitor lytes and vitals. DVT and GI prophylaxis. Further recommendations as per clinical course of the patient DVT prophylaxis: Subcutaneous heparin GI Prophylaxis Protonix PT/OT: Pending Prognosis is guarded
[2022-01-01] MEDS: CITALOPRAM HYDROBROMIDE 20 MG TAB PO SCH (10:00)
[2022-01-01] MEDS: lisinopriL 20 MG TAB PO SCH (10:00)
[2022-01-01] MEDS: ASPIRIN 81 MG PO SCH (10:00)
[2022-01-01] MEDS: metFORMIN 850 MG TAB PO SCH ×2 (10:00→20:19)
[2022-01-01] MEDS: PANTOPRAZOLE 40 MG/10 ML VIAL IVP SCH ×2 (10:01→20:19)
[2022-01-01 10:10] LABS: Basophils # (A) 0.08 X 10*3/uL (0.00-0.10); Basophils % (A) 0.6 %; Eosinophils # (A) 0.08 X 10*3/uL (0.04-0.35); Eosinophils % (A) 0.6 %; HGB 8.6 g/dL (12.0-15.0); Immature Grans, Automated 0.5 %; Lymphocytes # (A) 3.95 X 10*3/uL (0.90-5.00); Lymphocytes % (A) 31.8 %; MCH 30.5 pg (27.0-32.0); MCHC 30.7 g/dL (32.0-37.0); MCV 99.3 fL (80.0-97.0); Mean Platelet Volume 9.8 fL (9.5-12.2); Monocytes # (A) 0.99 X 10*3/uL (0.20-1.00); NRBC Per 100 WBC 0 /100 WBCS (0.0-0.0); Neutrophils # (A) 7.28 X 10*3/uL (1.80-7.70); Neutrophils % (A) 58.5 %; Platelet Count 340 X 10*3/uL (140-440); RBC 2.82 X 10*6/uL (4.10-5.20); RDW 14.1 % (11.5-14.5); WBC 12.44 X 10*3/uL (4.50-10.00)
[2022-01-01 10:22] LABS: Chol/HDL Ratio 2.46 Ratio; LDL Cholesterol,Calculated 60.1 mg/dL (0.0-131.0)
--- NOTE | 2022-01-01 11:07 | CA ---
Transthoracic Echo Report Name: Katie Andre Age: 76 Gender: F : 1945 Exam Date: 01/01/2022 10:17 Exam Location: [facility] Ht (in): 60 Wt (lb): 153 Ordering Physician: Cait Goss Attending/Referring Phys: Obiee Report Developer Lyndsay Russo, ELICIA Procedure CPT: Indications: dyspnea, LV function Cardiac Hx: DM, HTN, CHOL, CATH Technical Quality: Contrast 1: N/A Total Dose (mL): Contrast 2: Total Dose (mL): MEASUREMENTS (Male / Female) Normal Values 2D ECHO LV Diastolic Diameter PLAX 3.7 cm 4.2 - 5.9 / 3.9 - 5.3 cm LV Systolic Diameter PLAX 2.8 cm IVS Diastolic Thickness 1.7 cm 0.6 - 1.0 / 0.6 - 0.9 cm LVPW Diastolic Thickness 1.9 cm 0.6 - 1.0 / 0.6 - 0.9 cm LV Relative Wall Thickness 1.0 RV Internal Dim ED PLAX 3.3 cm LA Systolic Diameter LX 3.1 cm 3.0 - 4.0 / 2.7 - 3.8 cm LA Volume 71.4 cm 18 - 58 / 22 - 52 cm M-MODE MV E Point Septal Separation 0.7 cm DOPPLER MV Area PHT 3.0 cm Mitral E Point Velocity 44.3 cm/s Mitral A Point Velocity 111.7 cm/s Mitral E to A Ratio 0.4 MV Deceleration Time 252.8 ms MV E' Velocity 3.1 cm/s Mitral E to MV E' Ratio 14.2 FINDINGS Left Ventricle Severely increased septal wall thickness. EF 50-55% Right Ventricle Right ventricle not well visualized. Right ventricular systolic pressure within normal limits. Right Atrium Normal right atrial size. Left Atrium Moderately increased left atrial volume. Mildly increased left atrial area. Mitral Valve Mitral valve thickened. Mild mitral regurgitation. Aortic Valve Aortic valve sclerosis. Mild aortic regurgitation. Tricuspid Valve Mild tricuspid regurgitation. Pulmonic Valve Pulmonic valve not well visualized. Pericardium Echo free space anterior to the right ventricle likely represents a fat pad. Aorta Aortic root and proximal ascending aorta not well visualized. CONCLUSIONS Normal LV size and preserved systolic function with mild concentric LVH. There is mild to moderate left atrial enlargement. There is mild mitral and tricuspid and aortic insufficiency. No significant pericardial effusion but there may be a fat pad Previewed by: Dr. Luis M Whaley MD (Electronically Signed) Final Date: 01 January 2022 11:06
--- NOTE | 2022-01-01 11:26 | P.GSCN ---
History of Present Illness Consult date: 01/01/22 History of present illness: CHIEF COMPLAINT: Weakness and shortness of breath HISTORY OF PRESENT ILLNESS: This is a 76-year-old female who presented to the hospital with shortness of breath, weakness and dizziness. Patient does report having black stools for a couple of days about 4 days ago. She does report taking an iron pill at home. She complains of acid reflux and discomfort in the epigastric area. She does have a prior history of ulcer in the pyloric channel this was noted on the EGD and 2016. Patient does report also a history of bleeding stomach ulcers. She reports she had a colonoscopy 3 years ago which was negative. She denies any NSAID use. Patient seen by cardiology during this admission for chest discomfort which they report no evidence of acute coronary event. Patient does report that she's been without her omeprazole for at least 3 weeks. Hemoglobin on admission 9.8 count 8.6. Hemoglobin earlier in December was 11.2 prior to that patient had normal hemoglobin range. PAST MEDICAL HISTORY: Asthma, Diabetes Mellitus, Eye Disorder, Fibromyalgia, GERD/Reflux, GI Bleed, Hypertension, Myocardial Infarction ([place]), Rheumatoid Arthritis ([place]) PAST SURGICAL HISTORY: Cholecystectomy, Joint Replacement, Orthopedic Surgery, Tubal Ligation MEDICATIONS: See list. ALLERGIES: See list. SOCIAL HISTORY: No illicit drug use. REVIEW OF SYSTEMS: CONSTITUTIONAL: Denies fever or chills. HEENT: Denies blurred vision, vision changes, or eye pain. Denies hemoptysis CARDIOVASCULAR: Denies chest pain or pressure. RESPIRATORY: No shortness of breath. GASTROINTESTINAL: See HPI for pertinent findings HEMATOLOGIC: Denies bleeding disorders. GENITOURINARY: Denies any blood in urine or increased urinary frequency. SKIN: Denies pruitis. Denies rash. PHYSICAL EXAM: VITAL SIGNS: Reviewed GENERAL: Well-developed in no acute distress. HEENT: No sclera icterus. Extraocular movements grossly intact. Moist buccal mucosa. Head is atraumatic, normocephalic. No nasal drainage. ABDOMEN: Soft. Nondistended. Tenderness in epigastric area NEUROLOGIC: Alert and oriented. Cranial nerves II through XII grossly intact. LABORATORY DATA: WBC 14.1 down to 12.4 hemoglobin 9.8 down to 8.6 platelets 340 Sodium 136 potassium 4.4 creatinine is 0.76 Troponins negative 3 IMAGING: ASSESSMENT: 1. Anemia with black stools and prior history of peptic ulcer disease PLAN: -Patient scheduled for EGD today with Dr. Dang -Keep patient nothing by mouth -Continue PPI -Continue IV fluids Thank you for this consultation Physician Cartridge Loading Operator note has been reviewed by physician. Signing provider agrees with the documented findings, assessment, and plan of care. I have personally seen and examined the patient, reviewed the ELECTRICAL WORKER /PAs history, exam and MDM and agree with the assessment and plan as written. Based on total visit time, I have performed more than 50% of the visit. As above: Patient with dysphagia, retrosternal pain, and history of esophageal stricture with esophagitis. Proceed with upper endoscopy with possible dilation. Risks of bleeding and perforation reviewed. She understands and wishes to proceed. Past Medical History Past Medical History: Asthma, Diabetes Mellitus, Eye Disorder, Fibromyalgia, GERD/Reflux, GI Bleed, Hypertension, Myocardial Infarction ([place]), Rheumatoid Ar thritis ([place]) Additional Past Medical History / Comment(s): unable to breath through nose,steroid injection Jun 2018 to back,cataracts maximus eyes,PAST UGI BLEED X3. HEART MURMUR.. Last Myocardial Infarction Date:: 2004 History of Any Multi-Drug Resistant Organisms: None Reported Past Surgical History: Cholecystectomy, Joint Replacement, Orthopedic Surgery, Tubal Ligation Additional Past Surgical History / Comment(s): RIGHT COLLAR BONE REPAIR ( DEFECT). LEFT TOTAL KNEE. Past Anesthesia/Blood Transfusion Reactions: Motion Sickness, Postoperative Nausea & Vomiting (PONV) Past Psychological History: No Psychological Hx Reported Smoking Status: Never smoker Past Alcohol Use History: None Reported Past Drug Use History: None Reported - Past Family History Mother Family Medical History: Hypertension Medications and Allergies Home Medications Medication Instructions Recorded Confirmed Type Cranberry Fruit Concentrate 450 mg PO DAILY 04/09/16 12/31/21 History [Cranberry] Verapamil HCl [Verapamil ER] 240 mg PO DAILY 04/09/16 12/31/21 History metFORMIN HCL [Glucophage] 850 mg PO BID 04/09/16 12/31/21 History Multivit-Min/Iron/Folic/Lutein 1 tab PO DAILY 06/15/18 12/31/21 History [Centrum Silver Women Tablet] Benazepril HCl [Lotensin] 20 mg PO DAILY 04/24/21 12/31/21 History Cholecalciferol [Vitamin D3 (25 50 mcg PO DAILY 04/24/21 12/31/21 History Mcg = 1000 Iu)] Citalopram Hydrobromide [CeleXA] 40 mg PO DAILY 04/24/21 12/31/21 History Metoclopramide [Reglan] 5 mg PO TID PRN #20 tab 12/19/21 12/31/21 Rx Iron(Unknown) 1 tab PO DAILY 12/31/21 12/31/21 History Omeprazole 20 mg PO DAILY 12/31/21 12/31/21 History Allergies Allergy/AdvReac Type Severity Reaction Status Date / Time Penicillins Allergy Rash/Hives.HOT Verified 12/31/21 22:32 FLASH caffeine AdvReac INCREASED Verified 12/31/21 22:32 HEART RATE, TWITCHING ON HER SCALP codeine AdvReac Nausea & Verified 12/31/21 22:32 Vomiting Iodinated Contrast Media AdvReac 'PASSED Verified 12/31/21 22:32 [Iodinated Contrast Media - OUT'. IV Dye] FLUSHING. morphine AdvReac Nausea & Verified 12/31/21 22:32 Vomiting NSAIDS (Non-Steroidal AdvReac ulcers Verified 12/31/21 22:32 Anti-Inflamma theophylline anhydrous AdvReac INCREASED Verified 12/31/21 22:32 [From Álvaro-Dur] HEART RATE SYMPATHOMEIMETCICS AdvReac Unknown. Uncoded 12/31/21 22:32 PATIENT SPELLED THIS SEVERAL TIMES? Surgical - Exam Vital Signs Temp Pulse Resp BP Pulse Ox 98.1 F 95 18 103/56 96 12/31/21 20:51 12/31/21 20:51 12/31/21 20:51 12/31/21 20:51 12/31/21 20:51 Results - Labs 01/01/22 05:28 12/31/21 22:33 Abnormal Lab Results - Last 24 Hours (Table) 12/31/21 12/31/21 01/01/22 Range/Units 22:33 22:33 02:30 WBC 14.1 H (3.8-10.6) k/uL RBC 3.06 L (3.80-5.40) m/uL Hgb 9.8 L (11.4-16.0) gm/dL Hct 30.7 L (34.0-46.0) % MCV 100.3 H (80.0-100.0) fL MCHC (32.0-37.0) g/dL Immature Gran # (0.00-0.04) X 10*3/uL Neutrophils # 9.2 H (1.3-7.7) k/uL Sodium 136 L (137-145) mmol/L BUN 30 H (7-17) mg/dL Glucose 104 H (74-99) mg/dL Triglycerides (0.00-149.00) mg/dL HDL Cholesterol (40.00-60.00) mg/dL Urine Appearance Cloudy H (Clear) Urine Protein Trace H (Negative) Ur Leukocyte Esterase Moderate H (Negative) Urine WBC 20 H (0-5) /hpf Ur Squamous Epith Cells 6 H (0-4) /hpf Calcium Oxalate Crystal Occasional H (None) /hpf Urine Bacteria Many H (None) /hpf Hyaline Casts 4 H (0-2) /lpf Urine Mucus Few H (None) /hpf 01/01/22 01/01/22 Range/Units 05:28 05:28 WBC 12.44 H (3.8-10.6) k/uL RBC 2.82 L (3.80-5.40) m/uL Hgb 8.6 L (11.4-16.0) gm/dL Hct 28.0 L (34.0-46.0) % MCV 99.3 H (80.0-100.0) fL MCHC 30.7 L (32.0-37.0) g/dL Immature Gran # 0.06 H (0.00-0.04) X 10*3/uL Neutrophils # (1.3-7.7) k/uL Sodium (137-145) mmol/L BUN (7-17) mg/dL Glucose (74-99) mg/dL Triglycerides 159.00 H (0.00-149.00) mg/dL HDL Cholesterol 63.10 H (40.00-60.00) mg/dL Urine Appearance (Clear) Urine Protein (Negative) Ur Leukocyte Esterase (Negative) Urine WBC (0-5) /hpf Ur Squamous Epith Cells (0-4) /hpf Calcium Oxalate Crystal (None) /hpf Urine Bacteria (None) /hpf Hyaline Casts (0-2) /lpf Urine Mucus (None) /hpf Microbiology - Last 24 Hours (Table) 01/01/22 02:30 Urine Culture - Preliminary Urine,Voided Diabetes panel 12/31/21 01/01/22 Range/Units 22:33 05:28 Sodium 136 L (137-145) mmol/L Potassium 4.4 (3.5-5.1) mmol/L Chloride 104 (98-107) mmol/L Carbon Dioxide 23 (22-30) mmol/L BUN 30 H (7-17) mg/dL Creatinine 0.76 (0.52-1.04) mg/dL Glucose 104 H (74-99) mg/dL Calcium 8.8 (8.4-10.2) mg/dL Triglycerides 159.00 H (0.00-149.00) mg/dL HDL Cholesterol 63.10 H (40.00-60.00) mg/dL Calcium panel 12/31/21 Range/Units 22:33 Calcium 8.8 (8.4-10.2) mg/dL Pituitary panel 12/31/21 Range/Units 22:33 Sodium 136 L (137-145) mmol/L Potassium 4.4 (3.5-5.1) mmol/L Chloride 104 (98-107) mmol/L Carbon Dioxide 23 (22-30) mmol/L BUN 30 H (7-17) mg/dL Creatinine 0.76 (0.52-1.04) mg/dL Glucose 104 H (74-99) mg/dL Calcium 8.8 (8.4-10.2) mg/dL Adrenal panel 12/31/21 Range/Units 22:33 Sodium 136 L (137-145) mmol/L Potassium 4.4 (3.5-5.1) mmol/L Chloride 104 (98-107) mmol/L Carbon Dioxide 23 (22-30) mmol/L BUN 30 H (7-17) mg/dL Creatinine 0.76 (0.52-1.04) mg/dL Glucose 104 H (74-99) mg/dL Calcium 8.8 (8.4-10.2) mg/dL
[2022-01-01 16:02] LABS: % Iron Saturation 8.04 (12.00-45.00)
[2022-01-01] MEDS ORDERED: LIDOCAINE 2% INJ 20 MG/ML (2 ML VIAL) ONE (16:05)
[2022-01-01] MEDS ORDERED: fentaNYL (PF) 50 MCG/ML 2 ML AMP ONE (16:05)
[2022-01-01] MEDS ORDERED: MIDAZOLAM 2 MG/2 ML VIAL ONE (16:05)
[2022-01-01] MEDS ORDERED: PROPOFOL 10 MG/ML 20 ML VIAL IV ONE (16:05)
[2022-01-01] MEDS ORDERED: IV FLUID CONTINUATION 500 ML IV ONE (16:10)
--- NOTE | 2022-01-01 16:45 | P.PCN ---
Date of Procedure: 01/01/22 Procedure(s) Performed: Preoperative Dx: Anemia, dysphagia Postoperative Dx: Duodenal stricture, gastritis, moderate sized hiatal hernia, esophageal stricture Procedure: EGD with Bx Anesthesia: Sedation Endoscopist: Dr. Dang Specimens: Antrum, GE junction Endoscopic Procedure: The patient was on the endoscopy table in the left decubitus position. The Olympus gastroscope was inserted into the oropharynx and passed under direct visualization to the region of the third portion of the duodenum. From that point the scope was slowly withdrawn inspecting all surfaces carefully. In the early part of the second portion of the duodenum there was a stricture present. There was mild inflammation without ulceration seen. This did not appear neoplastic. Biopsies were not taken from that area. The pylorus was widely patent. The stomach was carefully inspected including retroflexion. The patient had mild gastritis. Retroflexion revealed a moderate sized hiatal hernia. The portion of stomach above the diaphragm revealed inflammatory changes that were more significant then distally in the stomach. At the GE junction itself there was a benign-appearing stricture. A biopsy of the GE junction took place. Both the duodenal and the esophageal strictures allowed passage of the scope without significant difficulty therefore no dilation took place. The remainder the esophagus was examined and appeared normal. Recommendations: Continue antiacid therapy. Would suspect improvement in endoscopic findings with continued antiacid use. If dysphagia persists or suspicion for gastric outlet obstruction would take back for dilation of the offending stricture site. Patient may benefit from colonoscopy. This could be performed as an outpatient.
[2022-01-01] MEDS: FERROUS SULFATE 325 MG TAB PO SCH (20:20)
[2022-01-01] MEDS ORDERED: CYANOCOBALAMIN 1,000 MCG/ML 1 ML VIAL IM ONE (20:30)
[2022-01-02] MEDS: SODIUM CHLORIDE 0.9% 1,000 ML IV SCH ×2 (03:38→17:25)
--- NOTE | 2022-01-02 07:57 | P.PN ---
Subjective This is a pleasant 76-year-old female past medical history significant for type 2 diabetes, hypertension, dyslipidemia, was told she had an HI 10+ years ago but no cardiac catheterization was performed. She does not follow with a stage driver. She did see Dr. Castro in 2016 in the office. We have been asked to see in consultation for chest pain. Patient presents emergency department with complaints of generalized fatigue, exertional fatigue and shortness of breath. She states that she's been having the symptoms for about 1 month. She states over the past month she has been unable to walk around her apartment due to fatigue. She also endorses black stools about 3 days ago, that have resolved. She endorses constant burning chest pain, that she states is due to her acid reflux. She states she gets this burning chest pain throughout the day, it is non-radiating, non-exertional. No specific aggravating factors. She states she takes omeprazole with some relief. She denies any associated nausea, vomiting. She recently presented to the emergency department on 12/19/21 with similar complaints of generalized weakness, lightheadedness, shortness of breath, nausea and vomiting. At that time she states that she had difficulty getting her med ications due to her clinic closing and unable to get prescriptions. Patient was discharged. She states she follow up with her primary care provider, was able to get her medications refilled and was told to set up an outpatient stress test as well for her chest pain. Patient denies any history of stroke. She is a never/non-smoker. Denies alcohol use. 01/02/2022 Patient seen and examined at bedside, she is doing well. No chest pain, palpitations, lightheadedness or dizziness. She does feel some shortness of breath when walking around the room. She underwent EGD yesterday which revealed Duodenal stricture, gastritis, moderate sized hiatal hernia, esophageal stricture. Recommended colonoscopy as an outpatient. Her vital signs are stable. She is maintaining sinus rhythm on telemetry. Echocardiogram for LV EF of 5055%. Labs pending today. Hgb 8.6 yesterday, from 9.8 previous. PHYSICAL EXAMINATION Vitals reviewed CONSTITUTIONAL: No apparent distress. HEENT: Head is normocephalic. Mucous membranes of the mouth are moist. No JVD. CHEST EXAMINATION: Lungs are clear to auscultation. No chest wall tenderness is noted on palpation or with deep breathing. HEART EXAMINATION: Regular rate and rhythm. S1, S2 heard. Systolic murmur noted at the apex. ABDOMEN: Soft, nontender. Positive bowel sounds. EXTREMITIES: 2+ peripheral pulses, no lower extremity edema and no calf tenderness. NEUROLOGIC EXAMINATION: Patient is awake, alert and oriented x3. ASSESSMENT Chest discomfort, appears non-cardiac in nature, acute coronary syndrome has been ruled out Symptoms of shortness of breath, could be related to worsening anemia Anemia Black stools reported per patient Type 2 Diabetes Hypertension Dyslipidemia PLAN An acute coronary event has been ruled out with no EKG evidence of ischemia and negative cardiac enzymes. Echo revealed EF 50-55%. Anemia workup per primary Continue home cardiac medications No further inpatient workup from a cardiology perspective. Recommend follow up outpatient with Dr. Whaley in the office Nurse practitioner note has been reviewed by physician. Signing provider agrees with the documented findings, assessment, and plan of care. Objective - Vital Signs Vital signs: Vital Signs Temp 97.9 F 01/02/22 07:00 Pulse 78 01/02/22 07:00 Resp 18 01/02/22 07:00 BP 149/82 01/02/22 07:00 Pulse Ox 97 01/02/22 07:00 Intake & Output 01/01/22 01/02/22 01/02/22 18:59 06:59 18:59 Intake Total 300 Balance 300 Weight 68.039 kg Intake: IV 300 Other: # Voids 2 3 - Labs CBC & Chem 7: 01/01/22 05:28 12/31/21 22:33 Labs: Abnormal Lab Results - Last 24 Hours (Table) 01/01/22 01/01/22 01/01/22 Range/Units 05:28 05:28 05:28 WBC 12.44 H (4.50-10.00) X 10*3/uL RBC 2.82 L (4.10-5.20) X 10*6/uL Hgb 8.6 L (12.0-15.0) g/dL Hct 28.0 L (37.2-46.3) % MCV 99.3 H (80.0-97.0) fL MCHC 30.7 L (32.0-37.0) g/dL Immature Gran # 0.06 H (0.00-0.04) X 10*3/uL Iron 33 L (50-170) ug/dL % Saturation 8.04 L (12.00-45.00) Triglycerides 159.00 H (0.00-149.00) mg/dL HDL Cholesterol 63.10 H (40.00-60.00) mg/dL Microbiology - Last 24 Hours (Table) 01/01/22 02:30 Urine Culture - Preliminary Urine,Voided
[2022-01-02] MEDS: PANTOPRAZOLE 40 MG/10 ML VIAL IVP SCH ×2 (09:20→22:02)
[2022-01-02] MEDS: CITALOPRAM HYDROBROMIDE 20 MG TAB PO SCH (09:20)
[2022-01-02] MEDS: CYANOCOBALAMIN 500 MCG TAB PO SCH (09:20)
[2022-01-02] MEDS: ASPIRIN 81 MG PO SCH (09:20)
[2022-01-02] MEDS: lisinopriL 20 MG TAB PO SCH (09:21)
[2022-01-02] MEDS: FERROUS SULFATE 325 MG TAB PO SCH ×2 (09:21→17:54)
[2022-01-02 09:28] LABS: Basophils # (A) 0.05 X 10*3/uL (0.00-0.10); Basophils % (A) 0.5 %; Eosinophils # (A) 0.15 X 10*3/uL (0.04-0.35); Eosinophils % (A) 1.5 %; HCT 24.4 % (37.2-46.3); HGB 7.4 g/dL (12.0-15.0); Immature Grans, Automated 0.3 %; Lymphocytes # (A) 3.28 X 10*3/uL (0.90-5.00); Lymphocytes % (A) 32.8 %; MCH 30.7 pg (27.0-32.0); MCHC 30.3 g/dL (32.0-37.0); MCV 101.2 fL (80.0-97.0); Mean Platelet Volume 9.9 fL (9.5-12.2); NRBC Per 100 WBC 0 /100 WBCS (0.0-0.0); Neutrophils # (A) 5.69 X 10*3/uL (1.80-7.70); Neutrophils % (A) 56.9 %; Platelet Count 298 X 10*3/uL (140-440); RBC 2.41 X 10*6/uL (4.10-5.20); Reticulocyte % 5.23 % (0.10-1.80)
[2022-01-02] MEDS: metFORMIN 850 MG TAB PO SCH ×2 (09:30→22:02)
[2022-01-02] MEDS: VERAPAMIL SR 240 MG TABLET.ER PO SCH (09:30)
[2022-01-02 09:53] LABS: African American GFR (CKD) 98.2 (60.0-200.0); BUN/Creat Ratio 27.57 Ratio (12.00-20.00); Blood Urea Nitrogen 19.3 mg/dL (9.0-27.0); Calcium 8.4 mg/dL (8.7-10.3); Non-African American GFR(CKD) 84.8 (60.0-200.0); Potassium 4.1 mmol/L (3.5-5.5)
--- NOTE | 2022-01-02 11:52 | P.PN ---
Subjective Progress Note Date: 01/02/22 CHIEF COMPLAINT: Anemia HISTORY OF PRESENT ILLNESS: Patient is status post EGD with results demonstrating duodenal stricture, gastritis, moderate size hiatal hernia and esophageal stricture. No dilation done. Patient reports that she was able to eat eggs this morning. But the rest of the tray did not appeal to her. She denies any nausea or vomiting. She reports that she was able to eat the eggs wi thout difficulty swallowing. She did have a black stool this morning. She is taking iron supplements. Her hemoglobin did drop from 8.6-7.4. Patient denies any abdominal pain PHYSICAL EXAM: VITAL SIGNS: Reviewed. GENERAL: Well-developed in no acute distress. HEENT: No sclera icterus. Extraocular movements grossly intact. Moist buccal mucosa. Head is atraumatic, normocephalic. ABDOMEN: Soft. Nondistended. Nontender. NEUROLOGIC: Alert and oriented. Cranial nerves II through XII grossly intact. ASSESSMENT: 1. Anemia and dysphagia status post EGD results demonstrating duodenal stric ture, gastritis, moderate size hiatal hernia and esophageal stricture PLAN: -Further recommendations forthcoming per surgeon regarding colonoscopy -Continue to monitor hemoglobin -Continue to monitor for signs of symptoms of bleeding -Continue PPI -If dysphagia persists or suspicion for gastric outlet obstruction would take back for dilation of the offending stricture site. Physician Systems Analyst note has been reviewed by physician. Signing provider agrees with the documented findings, assessment, and plan of care. I have personally seen and examined the patient, reviewed the SATELLITE PROJECT SITE MONITOR /PAs history, exam and MDM and agree with the assessment and plan as written. Based on total visit time, I have performed more than 50% of the visit. As above: Patient doing well today. Mild shortness of breath. Hemoglobin decreased to 7.4. Stool occult blood positive. Discussed with patient and her daughter. We'll proceed with colonoscopy on Wednesday if she stays over the weekend. If she is discharged can be performed as an outpatient. Objective - Vital Signs Vital signs: Vital Signs Temp 97.9 F 01/02/22 07:00 Pulse 78 01/02/22 07:00 Resp 18 01/02/22 09:16 BP 149/82 01/02/22 07:00 Pulse Ox 97 01/02/22 07:00 Intake & Output 01/01/22 01/02/22 01/02/22 18:59 06:59 18:59 Intake Total 300 180 Balance 300 180 Weight 68.039 kg Intake: IV 300 Oral 180 Other: Voiding Method Toilet # Voids 2 3 - Labs CBC & Chem 7: 01/02/22 04:36 01/02/22 04:36 Labs: Abnormal Lab Results - Last 24 Hours (Table) 01/01/22 01/02/22 01/02/22 Range/Units 05:28 04:36 04:36 RBC 2.41 L (4.10-5.20) X 10*6/uL Hgb 7.4 L (12.0-15.0) g/dL Hct 24.4 L (37.2-46.3) % MCV 101.2 H (80.0-97.0) fL MCHC 30.3 L (32.0-37.0) g/dL Retic Count 5.23 H (0.10-1.80) % BUN/Creatinine Ratio 27.57 H (12.00-20.00) Ratio Calcium 8.4 L (8.7-10.3) mg/dL Iron 33 L (50-170) ug/dL % Saturation 8.04 L (12.00-45.00) Microbiology - Last 24 Hours (Table) 01/01/22 02:30 Urine Culture - Final Urine,Voided
--- NOTE | 2022-01-02 13:50 | P.PN ---
Subjective This is a pleasant 76 years old female with past medical history of type 2 diabetes mellitus, Asthma, , Fibromyalgia, GERD, GI Bleed, Hypertension, Rheumatoid Arthritis , patient states that she ran out of her omeprazole and her PCP refused prescribe her more for the last 1 month. She could not give good reason why she did not get her omeprazole. She was taking it for history of acid reflux, she had an EGD at [facility] about 8 years ago as she states and she has unremarkable colonoscopy about 3-4 years ago as she states. She presents because of severe weakness and tiredness,, some burning chest pain about 4/10 in severity, central, nonradiating has been going on for the last 2 weeks associated with some throat discomfort. Also she noticed black stool the last 4 days. She has headache and she uses Tylenol and Excedrin on and off for the last few days. Also she vomited one time 2 days ago and there was no blood in it. She denies smoking, alcohol or illicit drugs Hemodynamically stable she is slightly tachycardic around 113 this morning. BMP is unremarkable. ProBNP 119, troponin 3 are negative. WBCs showing elevation at 14.1. Hemoglobin 9.8 dropped from last time 11.2 on 12/19. Before that was 12-13. INR 1.0. Urine analysis is suspicious for infection. Influenza, RSV, complete reagan vv: undetected Chest x-ray: Minimal pulmonary fibrosis, no acute event. EKG showing normal sinus rhythm at [address]-T changes 01/03/2012 Patient chest pain most likely secondary to esophagitis/duodenitis with strictur e as shown on her EGD. Please refer to EGD report for more details. Her chest pain is rated as 4/10 with his improvement compared to yesterday. She remains on PPI, Protonix 40 mg twice daily. However her hemoglobin dropped down to 7.4 today. Reticulocyte count is high and occult blood in the stool is positive. WBCs is normal today 10.0. She is not on heparin Cardiology team on the case. who Cleared her For discharge. Also they started the patient on aspirin. Discontinue ceftriaxone as urine culture is negative Objective - Vital Signs Vital signs: Vital Signs Temp 97.9 F 01/02/22 07:00 Pulse 78 01/02/22 07:00 Resp 18 01/02/22 09:16 BP 149/82 01/02/22 07:00 Pulse Ox 97 01/02/22 07:00 Intake & Output 01/01/22 01/02/22 01/02/22 18:59 06:59 18:59 Intake Total 300 180 Balance 300 180 Weight 68.039 kg Intake: IV 300 Oral 180 Other: Voiding Method Toilet # Voids 2 3 - Exam GENERAL: The patient is alert and oriented x3, not in any acute distress. Well developed, well nourished. HEENT: Pupils are round and equally reacting to light. EOMI. No scleral icterus. No conjunctival pallor. Normocephalic, atraumatic. No pharyngeal erythema. No thyromegaly. CARDIOVASCULAR: S1 and S2 present. No murmurs, rubs, or gallops. PULMONARY: Chest is clear to auscultation, no wheezing or crackles. ABDOMEN: Soft, nontender, nondistended, normoactive bowel sounds. No palpable organomegaly. MUSCULOSKELETAL: No joint swelling or deformity. EXTREMITIES: No cyanosis, clubbing, or pedal edema. NEUROLOGICAL: Gross neurological examination did not reveal any focal deficits. SKIN: No rashes. no petechiae. - Labs CBC & Chem 7: 01/02/22 04:36 01/02/22 04:36 Labs: Abnormal Lab Results - Last 24 Hours (Table) 01/01/22 01/02/22 01/02/22 Range/Units 05:28 04:36 04:36 RBC 2.41 L (4.10-5.20) X 10*6/uL Hgb 7.4 L (12.0-15.0) g/dL Hct 24.4 L (37.2-46.3) % MCV 101.2 H (80.0-97.0) fL MCHC 30.3 L (32.0-37.0) g/dL Retic Count 5.23 H (0.10-1.80) % BUN/Creatinine Ratio 27.57 H (12.00-20.00) Ratio Calcium 8.4 L (8.7-10.3) mg/dL Iron 33 L (50-170) ug/dL % Saturation 8.04 L (12.00-45.00) Microbiology - Last 24 Hours (Table) 01/01/22 02:30 Urine Culture - Preliminary Urine,Voided Assessment and Plan Assessment: Acute symptomatic Anemia, rule out GI bleed Chest pain, rule out cardiac causes Possible acute urinary tract infection hypertension Diabetes mellitus, type II History of GERD History of asthma History of GI bleed History of rheumatoid arthritis Plan: This is a pleasant 76% old female presents with chest pain and anemia Cardiology consult. The patient Continue with aspirin per vocational case manager anemia workup is reviewed. Started on oral iron and B12. Discontinue ceftriaxone as urine culture is negative Labs and medication were reviewed.. Continue same treatment. Continue with symptomatic treatment. Resume home medication. Monitor lytes and vitals. DVT and GI prophylaxis. Further recommendations as per clinical course of the patient DVT prophylaxis:no Subcutaneous heparin for anemia GI Prophylaxis Protonix PT/OT: Pending Prognosis is guarded
[2022-01-02] MEDS: ACETAMINOPHEN TAB 325 MG TAB PO PRN ×2 (16:36→22:01)
[2022-01-03] MEDS: SODIUM CHLORIDE 0.9% 1,000 ML IV SCH ×2 (05:26→16:55)
[2022-01-03] MEDS: FERROUS SULFATE 325 MG TAB PO SCH ×2 (08:37→16:55)
[2022-01-03] MEDS: VERAPAMIL SR 240 MG TABLET.ER PO SCH (08:37)
[2022-01-03] MEDS: metFORMIN 850 MG TAB PO SCH ×2 (08:37→20:47)
[2022-01-03] MEDS: CYANOCOBALAMIN 500 MCG TAB PO SCH (08:37)
[2022-01-03] MEDS: CITALOPRAM HYDROBROMIDE 20 MG TAB PO SCH (08:37)
[2022-01-03 08:38] LABS: Basophils # (A) 0.07 X 10*3/uL (0.00-0.10); Basophils % (A) 0.9 %; Eosinophils # (A) 0.21 X 10*3/uL (0.04-0.35); Eosinophils % (A) 2.8 %; HCT 24.8 % (37.2-46.3); HGB 7.6 g/dL (12.0-15.0); Immature Grans, Automated 0.3 %; Lymphocytes # (A) 2.41 X 10*3/uL (0.90-5.00); MCH 30.8 pg (27.0-32.0); MCHC 30.6 g/dL (32.0-37.0); MCV 100.4 fL (80.0-97.0); Mean Platelet Volume 9.7 fL (9.5-12.2); Monocytes # (A) 0.73 X 10*3/uL (0.20-1.00); Monocytes % (A) 9.7 %; NRBC Per 100 WBC 0 /100 WBCS (0.0-0.0); Neutrophils # (A) 4.09 X 10*3/uL (1.80-7.70); Neutrophils % (A) 54.3 %; Platelet Count 274 X 10*3/uL (140-440); RBC 2.47 X 10*6/uL (4.10-5.20); RDW 13.7 % (11.5-14.5); WBC 7.53 X 10*3/uL (4.50-10.00)
[2022-01-03] MEDS: PANTOPRAZOLE 40 MG/10 ML VIAL IVP SCH ×2 (08:38→20:47)
[2022-01-03] MEDS: lisinopriL 20 MG TAB PO SCH (08:38)
--- NOTE | 2022-01-03 13:51 | P.PN ---
Subjective Progress Note Date: 01/03/22 CHIEF COMPLAINT: Gastrointestinal bleeding HISTORY OF PRESENT ILLNESS: The patient is a 76-year-old female who presented with gastrointestinal bleeding and anemia. She completed upper endoscopy with features of gastritis, hiatal hernia, esophageal stricture. Daugher is at bedside. Patient reports, "I have my appetite back!" She is eating [employer] potato chips. No recent blood in stools. No hematemesis. ROS: No reports of nausea and vomiting. No fevers or chills. No new chest pain. No productive sputum PHYSICAL EXAM: VITAL SIGNS: Reviewed CONSTITUTIONAL: Well developed and in no acute distress. EYES: Conjuctivae without sclera icterus. Extraocular movements grossly intact. HEAD, EARS, NOSE, THROAT: Moist buccal mucosa. Head is atraumatic, normocephalic. Hears conversational speech. No nasal drainage. RESPIRATORY: Non-labored respirations and equal bilateral excursions. CARDIOVASCULAR: Palpable 2+ radial pulses. ABDOMEN: No peritonitis MUSCULOSKELETAL: No gross deformity of the lower extremities noted. No clubbing. No cyanosis. SKIN: Good skin turgor. Well perfused. NEUROLOGIC: Cranial nerves II through XII grossly intact. No focal or lateralizing signs. PSYCH: Appropriate affect. Alert and oriented to person, place and time. CLINICAL LABS: Reviewed. Hemoglobin 7.4-7.6 ASSESSMENT: 1. Gastrointestinal bleeding. PLAN: 1. Colonoscopy may be done as outpatient if patient is discharged 2. Care plan discussed with patient and family. Objective - Vital Signs Vital signs: Vital Signs Temp 98.8 F 01/03/22 07:00 Pulse 105 H 01/03/22 07:00 Resp 16 01/03/22 07:00 BP 170/83 01/03/22 07:00 Pulse Ox 94 L 01/03/22 07:00 Intake & Output 01/02/22 01/03/22 01/03/22 18:59 06:59 18:59 Intake Total 600 240 Balance 600 240 Intake: Oral 600 240 Other: Voiding Method Toilet Toilet # Voids 3 1 # Bowel Movements 1 - Labs CBC & Chem 7: 01/03/22 05:52 01/02/22 04:36 Labs: Abnormal Lab Results - Last 24 Hours (Table) 01/03/22 Range/Units 05:52 RBC 2.47 L (4.10-5.20) X 10*6/uL Hgb 7.6 L (12.0-15.0) g/dL Hct 24.8 L (37.2-46.3) % MCV 100.4 H (80.0-97.0) fL MCHC 30.6 L (32.0-37.0) g/dL Microbiology - Last 24 Hours (Table) 01/01/22 02:30 Urine Culture - Final Urine,Voided
[2022-01-03] MEDS: ACETAMINOPHEN TAB 325 MG TAB PO PRN (14:29)
--- NOTE | 2022-01-03 19:05 | P.PN ---
Subjective This is a pleasant 76 years old female with past medical history of type 2 diabetes mellitus, Asthma, , Fibromyalgia, GERD, GI Bleed, Hypertension, Rheumatoid Arthritis , patient states that she ran out of her omeprazole and her PCP refused prescribe her more for the last 1 month. She could not give good reason why she did not get her omeprazole. She was taking it for history of acid reflux, she had an EGD at [facility] about 8 years ago as she states and she has unremarkable colonoscopy about 3-4 years ago as she states. She presents because of severe weakness and tiredness,, some burning chest pain about 4/10 in severity, central, nonradiating has been going on for the last 2 weeks associated with some throat discomfort. Also she noticed black stool the last 4 days. She has headache and she uses Tylenol and Excedrin on and off for the last few days. Also she vomited one time 2 days ago and there was no blood in it. She denies smoking, alcohol or illicit drugs Hemodynamically stable she is slightly tachycardic around 113 this morning. BMP is unremarkable. ProBNP 119, troponin 3 are negative. WBCs showing elevation at 14.1. Hemoglobin 9.8 dropped from last time 11.2 on 12/19. Before that was 12-13. INR 1.0. Urine analysis is suspicious for infection. Influenza, RSV, complete reagan vv: undetected Chest x-ray: Minimal pulmonary fibrosis, no acute event. EKG showing normal sinus rhythm at [address]-T changes 01/03/2012 Patient chest pain most likely secondary to esophagitis/duodenitis with strictur e as shown on her EGD. Please refer to EGD report for more details. Her chest pain is rated as 4/10 with his improvement compared to yesterday. She remains on PPI, Protonix 40 mg twice daily. However her hemoglobin dropped down to 7.4 today. Reticulocyte count is high and occult blood in the stool is positive. WBCs is normal today 10.0. She is not on heparin Cardiology team on the case. who Cleared her For discharge. Also they started the patient on aspirin. Discontinue ceftriaxone as urine culture is negative 12/17/2021 Patient hemoglobin dropped yesterday to 7.4 and 7.6. Patient complaining of from generalized weakness and exertional dyspnea and he has difficulty ambulation. No chest pain or abdominal pain or dyspnea. Her occult blood in the stool is positive and reticulocyte count significantly elevated. At 5.3 indicating active bleeding with compensatory increase and reti culocyte count for compensation. She remains on IV Protonix Aspirin started by cardiology team was put on hold Continue with IV fluid hydration and monitor hemoglobin Continue with Protonix twice a day and iron pills Patient finished treated with ceftriaxone. Urine culture is negative and antibiotics Be discontinued. Patient with no urinary symptoms today. Borderline B12 is been replaced Patient will need colonoscopy. EGD done already shown to denies asthma, stricture of the duodenum and esophagus with gastritis and moderate hiatal hernia. Patient has some difficulty with swallowing but no overt dysphagia and patient instructed to follow up as an outpatient regarding this and she agrees Objective - Vital Signs Vital signs: Vital Signs Temp 98.8 F 01/03/22 07:00 Pulse 105 H 01/03/22 07:00 Resp 16 01/03/22 07:00 BP 170/83 01/03/22 07:00 Pulse Ox 94 L 01/03/22 07:00 Intake & Output 01/02/22 01/03/22 01/03/22 18:59 06:59 18:59 Intake Total 600 240 Balance 600 240 Intake: Oral 600 240 Other: Voiding Method Toilet Toilet # Voids 3 1 # Bowel Movements 1 - Exam GENERAL: The patient is alert and oriented x3, not in any acute distress. Well developed, well nourished. HEENT: Pupils are round and equally reacting to light. EOMI. No scleral icterus. No conjunctival pallor. Normocephalic, atraumatic. No pharyngeal erythema. No thyromegaly. CARDIOVASCULAR: S1 and S2 present. No murmurs, rubs, or gallops. PULMONARY: Chest is clear to auscultation, no wheezing or crackles. ABDOMEN: Soft, nontender, nondistended, normoactive bowel sounds. No palpable organomegaly. MUSCULOSKELETAL: No joint swelling or deformity. EXTREMITIES: No cyanosis, clubbing, or pedal edema. NEUROLOGICAL: Gross neurological examination did not reveal any focal deficits. SKIN: No rashes. no petechiae. - Labs CBC & Chem 7: 01/03/22 05:52 01/02/22 04:36 Labs: Abnormal Lab Results - Last 24 Hours (Table) 01/02/22 01/03/22 Range/Units 11:30 05:52 RBC 2.47 L (4.10-5.20) X 10*6/uL Hgb 7.6 L (12.0-15.0) g/dL Hct 24.8 L (37.2-46.3) % MCV 100.4 H (80.0-97.0) fL MCHC 30.6 L (32.0-37.0) g/dL Stool Occult Blood Positive H (Negative) Microbiology - Last 24 Hours (Table) 01/01/22 02:30 Urine Culture - Final Urine,Voided Assessment and Plan Assessment: Acute GI bleed with positive occult blood in his stool, acute anemia and positive increased reticulocyte count Acute symptomatic Anemia, secondary to acute GI bleed Chest pain, rule cardiac causes ruled out. Most likely secondary to epididymitis Duodenitis with stricture gastritis, hiatal hernia and esophagitis with esophageal stricture or cold seen on EGD Possible acute urinary tract infection . Patient finished treatment with antibiotic hypertension Diabetes mellitus, type II History of GERD History of asthma History of GI bleed History of rheumatoid arthritis Plan: This is a pleasant 76% old female presents with chest pain and anemia Hold aspirin recommended by retention representative Continue with IV Protonix twice a day, ferrous sulfate, [place], lament re placement therapy Monitor hemoglobin closely Plan for colonoscopy on Wednesday Continue with aspirin per retention representative anemia workup is reviewed. Started on oral iron and B12. Discontinue ceftriaxone as urine culture is negative Labs and medication were reviewed.. Continue same treatment. Continue with symptomatic treatment. Resume home medication. Monitor lytes and vitals. DVT and GI prophylaxis. Further recommendations as per clinical course of the patient DVT prophylaxis:no Subcutaneous heparin for anemia GI Prophylaxis Protonix Prognosis is guarded
[2022-01-04] MEDS: ACETAMINOPHEN TAB 325 MG TAB PO PRN ×2 (00:30→09:12)
[2022-01-04] MEDS: FERROUS SULFATE 325 MG TAB PO SCH ×2 (09:12→19:43)
[2022-01-04] MEDS: metFORMIN 850 MG TAB PO SCH ×2 (09:12→19:43)
[2022-01-04] MEDS: VERAPAMIL SR 240 MG TABLET.ER PO SCH (09:12)
[2022-01-04] MEDS: lisinopriL 20 MG TAB PO SCH (09:12)
[2022-01-04] MEDS: CITALOPRAM HYDROBROMIDE 20 MG TAB PO SCH (09:12)
[2022-01-04] MEDS: CYANOCOBALAMIN 500 MCG TAB PO SCH (09:12)
[2022-01-04] MEDS: PANTOPRAZOLE 40 MG/10 ML VIAL IVP SCH ×2 (09:12→19:43)
[2022-01-04] MEDS: SODIUM CHLORIDE 0.9% 1,000 ML IV SCH ×3 (09:13→19:44)
[2022-01-04 09:15] LABS: Basophils # (A) 0.08 X 10*3/uL (0.00-0.10); Eosinophils # (A) 0.19 X 10*3/uL (0.04-0.35); Eosinophils % (A) 2.3 %; HCT 23.6 % (37.2-46.3); HGB 7.2 g/dL (12.0-15.0); Immature Grans, Automated 0.5 %; Lymphocytes # (A) 2.04 X 10*3/uL (0.90-5.00); Lymphocytes % (A) 24.8 %; MCH 30.8 pg (27.0-32.0); MCHC 30.5 g/dL (32.0-37.0); MCV 100.9 fL (80.0-97.0); Mean Platelet Volume 9.8 fL (9.5-12.2); Monocytes # (A) 0.69 X 10*3/uL (0.20-1.00); Monocytes % (A) 8.4 %; NRBC Per 100 WBC 0 /100 WBCS (0.0-0.0); Neutrophils # (A) 5.17 X 10*3/uL (1.80-7.70); Platelet Count 291 X 10*3/uL (140-440); RBC 2.34 X 10*6/uL (4.10-5.20); RDW 14.3 % (11.5-14.5); Reticulocyte % 6.14 % (0.10-1.80); WBC 8.21 X 10*3/uL (4.50-10.00)
[2022-01-04] MEDS ORDERED: PEG 3350-NA SULF,BICARB,CL/KCL 4,000 ML BOTTLE PO ONE (12:00)
--- NOTE | 2022-01-04 13:16 | P.PN ---
Subjective This is a pleasant 76 years old female with past medical history of type 2 diabetes mellitus, Asthma, , Fibromyalgia, GERD, GI Bleed, Hypertension, Rheumatoid Arthritis , patient states that she ran out of her omeprazole and her PCP refused prescribe her more for the last 1 month. She could not give good reason why she did not get her omeprazole. She was taking it for history of acid reflux, she had an EGD at [facility] about 8 years ago as she states and she has unremarkable colonoscopy about 3-4 years ago as she states. She presents because of severe weakness and tiredness,, some burning chest pain about 4/10 in severity, central, nonradiating has been going on for the last 2 weeks associated with some throat discomfort. Also she noticed black stool the last 4 days. She has headache and she uses Tylenol and Excedrin on and off for the last few days. Also she vomited one time 2 days ago and there was no blood in it. She denies smoking, alcohol or illicit drugs Hemodynamically stable she is slightly tachycardic around 113 this morning. BMP is unremarkable. ProBNP 119, troponin 3 are negative. WBCs showing elevation at 14.1. Hemoglobin 9.8 dropped from last time 11.2 on 12/19. Before that was 12-13. INR 1.0. Urine analysis is suspicious for infection. Influenza, RSV, complete reagan vv: undetected Chest x-ray: Minimal pulmonary fibrosis, no acute event. EKG showing normal sinus rhythm at [address]-T changes 01/03/2012 Patient chest pain most likely secondary to esophagitis/duodenitis with strictur e as shown on her EGD. Please refer to EGD report for more details. Her chest pain is rated as 4/10 with his improvement compared to yesterday. She remains on PPI, Protonix 40 mg twice daily. However her hemoglobin dropped down to 7.4 today. Reticulocyte count is high and occult blood in the stool is positive. WBCs is normal today 10.0. She is not on heparin Cardiology team on the case. who Cleared her For discharge. Also they started the patient on aspirin. Discontinue ceftriaxone as urine culture is negative 01/03/2022 Patient hemoglobin dropped yesterday to 7.4 and 7.6. Patient complaining of from generalized weakness and exertional dyspnea and he has difficulty ambulation. No chest pain or abdominal pain or dyspnea. Her occult blood in the stool is positive and reticulocyte count significantly elevated. At 5.3 indicating active bleeding with compensatory increase and reti culocyte count for compensation. She remains on IV Protonix Aspirin started by cardiology team was put on hold Continue with IV fluid hydration and monitor hemoglobin Continue with Protonix twice a day and iron pills Patient finished treated with ceftriaxone. Urine culture is negative and antibiotics Be discontinued. Patient with no urinary symptoms today. Borderline B12 is been replaced Patient will need colonoscopy. EGD done already shown to denies asthma, stricture of the duodenum and esophagus with gastritis and moderate hiatal hernia. Patient has some difficulty with swallowing but no overt dysphagia and patient instructed to follow up as an outpatient regarding this and she agrees 01/04/2022 Patient is awake and alert, no new symptoms while she is sitting in bed. She does not look in distress. She is hemodynamically stable. However her hemoglobin keep coming down to 7.2 today and reticulocyte count still going up to 6.1 today which goes with active GI bleeding in view of drop in hemoglobin and was difficult to blood in stool. Despite patient is been on vitamin B12 and iron replacement therapy. I strongly recommend patient stay in the hospital to undergo colonoscopy tomorrow by surgery team and patient agreeable for that. Continue with IV Protonix twice a day, normal saline 75 mL. Aspirin 81 mg started by welcome wagon hostess team on admission is currently on hold Objective - Vital Signs Vital signs: Vital Signs Temp 97.6 F 01/04/22 07:27 Pulse 70 01/04/22 07:27 Resp 20 01/04/22 07:27 BP 135/80 01/04/22 07:27 Pulse Ox 98 01/04/22 07:27 Intake & Output 01/03/22 01/04/22 01/04/22 18:59 06:59 18:59 Intake Total 720 Balance 720 Intake: Oral 720 Other: Voiding Method Toilet # Voids 4 1 - Exam GENERAL: The patient is alert and oriented x3, not in any acute distress. Well developed, well nourished. HEENT: Pupils are round and equally reacting to light. EOMI. No scleral icterus. No conjunctival pallor. Normocephalic, atraumatic. No pharyngeal erythema. No thyromegaly. CARDIOVASCULAR: S1 and S2 present. No murmurs, rubs, or gallops. PULMONARY: Chest is clear to auscultation, no wheezing or crackles. ABDOMEN: Soft, nontender, nondistended, normoactive bowel sounds. No palpable organomegaly. MUSCULOSKELETAL: No joint swelling or deformity. EXTREMITIES: No cyanosis, clubbing, or pedal edema. NEUROLOGICAL: Gross neurological examination did not reveal any focal deficits. SKIN: No rashes. no petechiae. - Labs CBC & Chem 7: 01/04/22 06:10 01/02/22 04:36 Labs: Abnormal Lab Results - Last 24 Hours (Table) 01/04/22 Range/Units 06:10 RBC 2.34 L (4.10-5.20) X 10*6/uL Hgb 7.2 L (12.0-15.0) g/dL Hct 23.6 L (37.2-46.3) % MCV 100.9 H (80.0-97.0) fL MCHC 30.5 L (32.0-37.0) g/dL Retic Count 6.14 H (0.10-1.80) % Assessment and Plan Assessment: Acute GI bleed with positive occult blood in his stool, acute anemia and positive increased reticulocyte count Acute symptomatic Anemia, secondary to acute GI bleed Chest pain, rule cardiac causes ruled out. Most likely secondary to epididymitis Duodenitis with stricture gastritis, hiatal hernia and esophagitis with esophageal stricture or cold seen on EGD Possible acute urinary tract infection . Patient finished treatment with antibiotic hypertension Diabetes mellitus, type II History of GERD History of asthma History of GI bleed History of rheumatoid arthritis Plan: This is a pleasant 76% old female presents with chest pain and anemia Hold aspirin recommended by welcome wagon hostess Continue with IV Protonix twice a day, ferrous sulfate, Monitor hemoglobin closely Plan for colonoscopy on Wednesday Continue with holding aspirin recommended per welcome wagon hostess anemia workup is reviewed. Started on oral iron and B12. Discontinue ceftriaxone as urine culture is negative Labs and medication were reviewed.. Continue same treatment. Continue with symptomatic treatment. Resume home medication. Monitor lytes and vitals. DVT and GI prophylaxis. Further recommendations as per clinical course of the patient DVT prophylaxis:no Subcutaneous heparin for anemia GI Prophylaxis Protonix Prognosis is guarded
--- NOTE | 2022-01-04 14:06 | P.PN ---
Subjective Progress Note Date: 01/04/22 CHIEF COMPLAINT: Gastrointestinal bleeding HISTORY OF PRESENT ILLNESS: The patient is a 76-year-old female who presented with gastrointestinal bleeding and anemia. Her Hgb has continued to decline. She is tolerating her bowel prep. ROS: No reports of nausea and vomiting. No fevers or chills. No new chest pain. No productive sputum PHYSICAL EXAM: VITAL SIGNS: Reviewed CONSTITUTIONAL: Well developed and in no acute distress. EYES: Conjuctivae without sclera icterus. Extraocular movements grossly intact. HEAD, EARS, NOSE, THROAT: Moist buccal mucosa. Head is atraumatic, normocephalic. Hears conversational speech. No nasal drainage. RESPIRATORY: Non-labored respirations and equal bilateral excursions. CARDIOVASCULAR: Palpable 2+ radial pulses. ABDOMEN: No peritonitis MUSCULOSKELETAL: No gross deformity of the lower extremities noted. No clubbing. No cyanosis. SKIN: Good skin turgor. Well perfused. NEUROLOGIC: Cranial nerves II through XII grossly intact. No focal or late ralizing signs. PSYCH: Appropriate affect. Alert and oriented to person, place and time. CLINICAL LABS: Reviewed. Hemoglobin 7.4-7.6, now 7.2. ASSESSMENT: 1. Gastrointestinal bleeding. PLAN: 1. Colonoscopy advised for progressive anemia. 2. Bowel prep instructions also reviewed. Objective - Vital Signs Vital signs: Vital Signs Temp 97.6 F 01/04/22 07:27 Pulse 70 01/04/22 07:27 Resp 20 01/04/22 07:27 BP 135/80 01/04/22 07:27 Pulse Ox 98 01/04/22 07:27 Intake & Output 01/03/22 01/04/22 01/04/22 18:59 06:59 18:59 Intake Total 720 Balance 720 Intake: Oral 720 Other: Voiding Method Toilet # Voids 4 1 - Labs CBC & Chem 7: 01/04/22 06:10 01/02/22 04:36 Labs: Abnormal Lab Results - Last 24 Hours (Table) 01/04/22 Range/Units 06:10 RBC 2.34 L (4.10-5.20) X 10*6/uL Hgb 7.2 L (12.0-15.0) g/dL Hct 23.6 L (37.2-46.3) % MCV 100.9 H (80.0-97.0) fL MCHC 30.5 L (32.0-37.0) g/dL Retic Count 6.14 H (0.10-1.80) %
[2022-01-05 09:17] LABS: HCT 28.9 % (37.2-46.3); HGB 8.8 g/dL (12.0-15.0); MCH 30.8 pg (27.0-32.0); MCHC 30.4 g/dL (32.0-37.0); Mean Platelet Volume 10.2 fL (9.5-12.2); NRBC Per 100 WBC 0 /100 WBCS (0.0-0.0); Platelet Count 364 X 10*3/uL (140-440); RBC 2.86 X 10*6/uL (4.10-5.20); RDW 14.5 % (11.5-14.5); WBC 14.42 X 10*3/uL (4.50-10.00)
[2022-01-05] MEDS: metFORMIN 850 MG TAB PO SCH ×2 (09:33→21:10)
[2022-01-05] MEDS: CITALOPRAM HYDROBROMIDE 20 MG TAB PO SCH (09:38)
[2022-01-05] MEDS: lisinopriL 20 MG TAB PO SCH (09:39)
[2022-01-05] MEDS: FERROUS SULFATE 325 MG TAB PO SCH ×2 (09:39→18:15)
[2022-01-05] MEDS: CYANOCOBALAMIN 500 MCG TAB PO SCH (09:39)
[2022-01-05] MEDS: PANTOPRAZOLE 40 MG/10 ML VIAL IVP SCH ×2 (09:39→21:10)
[2022-01-05] MEDS: VERAPAMIL SR 240 MG TABLET.ER PO SCH (09:39)
[2022-01-05] MEDS: ACETAMINOPHEN TAB 325 MG TAB PO PRN ×2 (09:50→21:09)
[2022-01-05 11:54] LABS: Glucose,Whole Blood 135 mg/dL (75-99)
[2022-01-05] MEDS: INSULIN ASPART (NovoLOG) 100 UNIT/ML VIAL SQ SCH ×3 (12:26→20:52)
[2022-01-05] MEDS: SODIUM FERRIC GLUCONAT-SUCROSE 125 MG in SODIUM CHLORIDE 0.9% 100 ML IVPB SCH (12:29)
[2022-01-05] MEDS: SODIUM CHLORIDE 0.9% 1,000 ML IV SCH ×2 (12:30→21:10)
--- NOTE | 2022-01-05 14:01 | P.PN ---
Subjective Progress Note Date: 01/05/22 This is a pleasant 76 years old female with past medical history of type 2 diabetes mellitus, Asthma, , Fibromyalgia, GERD, GI Bleed, Hypertension, Rheumatoid Arthritis , patient states that she ran out of her omeprazole and her PCP refused prescribe her more for the last 1 month. She could not give good reason why she did not get her omeprazole. She was taking it for history of acid reflux, she had an EGD at [facility] about 8 years ago as she states and she has unremarkable colonoscopy about 3-4 years ago as she states. She presents because of severe weakness and tiredness,, some burning chest pain about 4/10 in severity, central, nonradiating has been going on for the last 2 weeks associated with some throat discomfort. Also she noticed black stool the last 4 days. She has headache and she uses Tylenol and Excedrin on and off for the last few days. Also she vomited one time 2 days ago and there was no blood in it. She denies smoking, alcohol or illicit drugs Hemodynamically stable she is slightly tachycardic around 113 this morning. BMP is unremarkable. ProBNP 119, troponin 3 are negative. WBCs showing elevation at 14.1. Hemoglobin 9.8 dropped from last time 11.2 on 12/19. Before that was 12-13. INR 1.0. Urine analysis is suspicious for infection. Influenza, RSV, complete reagan vv: undetected Chest x-ray: Minimal pulmonary fibrosis, no acute event. EKG showing normal sinus rhythm at [address]-T changes 01/03/2012 Patient chest pain most likely secondary to esophagitis/duodenitis with stricture as shown on her EGD. Please refer to EGD report for more details. Her chest pain is rated as 4/10 with his improvement compared to yesterday. She remains on PPI, Protonix 40 mg twice daily. However her hemoglobin dropped down to 7.4 today. Reticulocyte count is high and occult blood in the stool is positive. WBCs is normal today 10.0. She is not on heparin Cardiology team on the case. who Cleared her For discharge. Also they started the patient on aspirin. Discontinue ceftriaxone as urine culture is negative 01/03/2022 Patient hemoglobin dropped yesterday to 7.4 and 7.6. Patient complaining of from generalized weakness and exertional dyspnea and he has difficulty ambulation. No chest pain or abdominal pain or dyspnea. Her occult blood in the stool is positive and reticulocyte count significantly elevated. At 5.3 indicating active bleeding with compensatory increase and reticulocyte count for compensation. She remains on IV Protonix Aspirin started by cardiology team was put on hold Continue with IV fluid hydration and monitor hemoglobin Continue with Protonix twice a day and iron pills Patient finished treated with ceftriaxone. Urine culture is negative and antibiotics Be discontinued. Patient with no urinary symptoms today. Borderline B12 is been replaced Patient will need colonoscopy. EGD done already shown to denies asthma, stricture of the duodenum and esophagus with gastritis and moderate hiatal hernia. Patient has some difficulty with swallowing but no overt dysphagia and patient instructed to follow up as an outpatient regarding this and she agrees 01/04/2022 Patient is awake and alert, no new symptoms while she is sitting in bed. She does not look in distress. She is hemodynamically stable. However her hemoglobin keep coming down to 7.2 today and reticulocyte count still going up to 6.1 today which goes with active GI bleeding in view of drop in hemoglobin and was difficult to blood in stool. Despite patient is been on vitamin B12 and iron replacement therapy. I strongly recommend patient stay in the hospital to undergo colonoscopy tomorrow by surgery team and patient agreeable for that. Continue with IV Protonix twice a day, normal saline 75 mL. Aspirin 81 mg started by parquetry floor layer team on admission is currently on hold 01/05/2022 Picking up care today of this patient. Evaluated today working with PT pending colonoscopy. Denies BM, states her last one was dark brown to her, however she is color blind. Denies abdominal pain today. Continues on IV protonix twice a day, normal saline at 75 mls, vitamin B12, oral iron BID. Aspirin on hold, hemoglobin today 8.8. White count 14.42. Vitals today 97.9, heart rate 91, blood pressure 151/78, 97% room air. If colonoscopy is non diagnostic and cleared by surgery patient would like to be discharged home today if possible. Review of Systems Constitutional: Denied any fatigue denied any fever. Cardio vascular: denied any chest pain, palpitations Gastrointestinal: denied any nausea, vomiting, diarrhea Pulmonary: Denied any shortness of breath cough Neurologic denied any new focal deficits All inpatient medications were reviewed and appropriate changes in these medications as dictated in the interval history and assessment and plan. PHYSICAL EXAMINATION: GENERAL: The patient is alert and oriented x3, not in any acute distress. Well developed, well nourished. HEENT: Pupils are round and equally reacting to light. EOMI. No scleral icterus. No conjunctival pallor. Normocephalic, atraumatic. No pharyngeal erythema. No thyromegaly. CARDIOVASCULAR: S1 and S2 present. No murmurs, rubs, or gallops. PULMONARY: Chest is clear to auscultation, no wheezing or crackles. ABDOMEN: Soft, nontender, nondistended, normoactive bowel sounds. No palpable organomegaly. MUSCULOSKELETAL: No joint swelling or deformity. EXTREMITIES: No cyanosis, clubbing, or pedal edema. NEUROLOGICAL: Gross neurological examination did not reveal any focal deficits. SKIN: No rashes. Assessment and Plan Assessment Acute GI Bleed with acute anemia, increased reticulocyte count Acute blood loss anemia secondary to GI bleed Chest pain, acute coronary syndrome has been ruled out Duodenitis with stricture gastritis, hiatal hernia, and esophagitis with esophageal stricture Possible acute UTI culture showing normal amparo, antibiotics completed Hypertension Diabetes mellitus type II History of GERD History of asthma History of GI Bleed History of rheumatoid arthritis GI Prophylaxis DVT Prophylaxis; held for now due to anemia Plan Colonoscopy today with gen-surg Aspirin on hold per cardiology Continue protonix Monitor hemoglobin, currently stable at 8.2 Continue on oral iron, B12 One time dose IV ferrlecit today Continue all other supportive care PT/OT Discharge in the next 24 hours The impression and plan of care has been dictated by Lily Dewitt Nurse Practitioner as directed. Dr. Kaden MD I have performed a history and physical examination and medical decision making of this patient, discussed the same with the dictator, and agree with the dictators assessment and plan as written, documented as a scribe. Based on total visit time, I have performed more than 50% of this visit. Objective - Vital Signs Vital signs: Vital Signs Temp 97.9 F 01/05/22 06:53 Pulse 91 01/05/22 06:53 Resp 18 01/05/22 06:53 BP 151/78 01/05/22 06:53 Pulse Ox 97 01/05/22 06:53 Intake & Output 01/04/22 01/05/22 01/05/22 18:59 06:59 18:59 Other: # Voids 4 1 # Bowel Movements 1 4 - Labs CBC & Chem 7: 01/05/22 04:16 01/02/22 04:36 Labs: Abnormal Lab Results - Last 24 Hours (Table) 01/05/22 Range/Units 04:16 WBC 14.42 H (4.50-10.00) X 10*3/uL RBC 2.86 L (4.10-5.20) X 10*6/uL Hgb 8.8 L (12.0-15.0) g/dL Hct 28.9 L (37.2-46.3) % MCV 101.0 H (80.0-97.0) fL MCHC 30.4 L (32.0-37.0) g/dL Assessment and Plan Time with Patient: Less than 30
[2022-01-05] MEDS ORDERED: LIDOCAINE 2% INJ 20 MG/ML (2 ML VIAL) ONE (15:55)
[2022-01-05] MEDS ORDERED: ONDANSETRON 4 MG/2 ML VIAL ONE (15:55)
[2022-01-05] MEDS ORDERED: PROPOFOL 10 MG/ML 20 ML VIAL IV ONE (15:55)
[2022-01-05] MEDS ORDERED: MIDAZOLAM 2 MG/2 ML VIAL ONE (15:55)
[2022-01-05] MEDS ORDERED: IV FLUID CONTINUATION 1,000 ML IV ONE ×2 (15:56)
--- NOTE | 2022-01-05 16:35 | P.PCN ---
Date of Procedure: 01/05/22 Procedure(s) Performed: PREOPERATIVE DIAGNOSIS: GI bleed POSTOPERATIVE DIAGNOSIS: Normal exam PROCEDURE: Colonoscopy ANESTHESIA: MAC SURGEON: Micheal Dang M.D. SPECIMENS: None ENDOSCOPIC PROCEDURE: The patient was placed on the endoscopy table in the left decubitus position. The Olympus colonoscope was inserted into the anus and passed under direct visualization to the base of the cecum. The appendiceal orifice was visualized. From that point the scope was slowly withdrawn inspecting all surfaces carefully. There were no neoplastic inflammatory or polypoid lesions throughout the cecum, ascending, transverse, descending, sigmoid and rectum. There was no visible diverticulosis noted. The patient's prep was slightly suboptimal however the majority of the mucosal surfaces were well visualized. Digital rectal examination was normal. The patient was taken to the recovery room in stable condition per anesthesia guidelines. RECOMMENDATIONS: Resume diet. May discharge from a surgical point of view. Continue antiacids.
[2022-01-05 17:46] LABS: Glucose,Whole Blood 111 mg/dL (75-99)
[2022-01-05 20:25] LABS: Glucose,Whole Blood 122 mg/dL (75-99)
[2022-01-06 07:25] LABS: Glucose,Whole Blood 114 mg/dL (75-99)
[2022-01-06] MEDS: INSULIN ASPART (NovoLOG) 100 UNIT/ML VIAL SQ SCH ×2 (09:11→12:26)
[2022-01-06 09:15] LABS: Basophils # (A) 0.05 X 10*3/uL (0.00-0.10); Basophils % (A) 0.7 %; Eosinophils # (A) 0.16 X 10*3/uL (0.04-0.35); Eosinophils % (A) 2.3 %; HCT 24.6 % (37.2-46.3); HGB 7.4 g/dL (12.0-15.0); Immature Grans, Automated 0.9 %; Lymphocytes # (A) 2.07 X 10*3/uL (0.90-5.00); Lymphocytes % (A) 30.3 %; MCH 30.3 pg (27.0-32.0); MCHC 30.1 g/dL (32.0-37.0); MCV 100.8 fL (80.0-97.0); Monocytes # (A) 0.71 X 10*3/uL (0.20-1.00); Monocytes % (A) 10.4 %; NRBC Per 100 WBC 0 /100 WBCS (0.0-0.0); Neutrophils # (A) 3.78 X 10*3/uL (1.80-7.70); Neutrophils % (A) 55.4 %; Platelet Count 296 X 10*3/uL (140-440); RBC 2.44 X 10*6/uL (4.10-5.20); RDW 14.8 % (11.5-14.5); WBC 6.83 X 10*3/uL (4.50-10.00)
[2022-01-06] MEDS: CITALOPRAM HYDROBROMIDE 20 MG TAB PO SCH (09:26)
[2022-01-06] MEDS: metFORMIN 850 MG TAB PO SCH (09:26)
[2022-01-06] MEDS: VERAPAMIL SR 240 MG TABLET.ER PO SCH (09:26)
[2022-01-06] MEDS: CYANOCOBALAMIN 500 MCG TAB PO SCH (09:26)
[2022-01-06] MEDS: PANTOPRAZOLE 40 MG/10 ML VIAL IVP SCH (09:27)
[2022-01-06] MEDS: FERROUS SULFATE 325 MG TAB PO SCH (09:27)
[2022-01-06] MEDS: lisinopriL 20 MG TAB PO SCH (09:27)
[2022-01-06 09:35] VITALS: BP 150/75; PULSE 63; TEMP 98.1
[2022-01-06 09:36] VITALS: RESP 17
[2022-01-06 09:40] LABS: African American GFR (CKD) 98.2 (60.0-200.0); Anion Gap 9.9 mmol/L (10.00-18.00); BUN/Creat Ratio 8.14 Ratio (12.00-20.00); Blood Urea Nitrogen 5.7 mg/dL (9.0-27.0); Calcium 8.6 mg/dL (8.7-10.3); Carbon Dioxide 25.1 mmol/L (20.0-27.5); Non-African American GFR(CKD) 84.8 (60.0-200.0); Potassium 4.1 mmol/L (3.5-5.5)
[2022-01-06] MEDS: SODIUM FERRIC GLUCONAT-SUCROSE 125 MG in SODIUM CHLORIDE 0.9% 100 ML IVPB SCH ×2 (10:51→12:25)
--- NOTE | 2022-01-06 10:53 | P.PN ---
Subjective Progress Note Date: 01/06/22 Principal diagnosis: GI bleed Patient doing well today. Denies pain. No rectal bleeding. Tolerating diet since the colonoscopy yesterday. Hemoglobin did drop somewhat to 7.4 from yesterday's 8.8 Objective - Vital Signs Vital signs: Vital Signs Temp 98.1 F 01/06/22 08:00 Pulse 63 01/06/22 08:00 Resp 17 01/06/22 09:35 BP 150/75 01/06/22 08:00 Pulse Ox 95 01/06/22 08:00 Intake & Output 01/05/22 01/06/22 01/06/22 18:59 06:59 18:59 Intake Total 320 240 Balance 320 240 Intake: IV 200 Oral 120 240 Other: Voiding Method Toilet Toilet Toilet # Voids 1 1 1 - Exam Abdomen: Soft, nontender, nondistended - Labs CBC & Chem 7: 01/06/22 07:02 01/06/22 07:02 Labs: Abnormal Lab Results - Last 24 Hours (Table) 01/05/22 01/05/22 01/05/22 Range/Units 11:40 17:31 20:22 RBC (4.10-5.20) X 10*6/uL Hgb (12.0-15.0) g/dL Hct (37.2-46.3) % MCV (80.0-97.0) fL MCHC (32.0-37.0) g/dL RDW (11.5-14.5) % Immature Gran # (0.00-0.04) X 10*3/uL Anion Gap (10.00-18.00) mmol/L BUN (9.0-27.0) mg/dL BUN/Creatinine Ratio (12.00-20.00) Ratio POC Glucose (mg/dL) 135 H 111 H 122 H (75-99) mg/dL Calcium (8.7-10.3) mg/dL 01/06/22 01/06/22 01/06/22 Range/Units 07:02 07:02 07:22 RBC 2.44 L (4.10-5.20) X 10*6/uL Hgb 7.4 L (12.0-15.0) g/dL Hct 24.6 L (37.2-46.3) % MCV 100.8 H (80.0-97.0) fL MCHC 30.1 L (32.0-37.0) g/dL RDW 14.8 H (11.5-14.5) % Immature Gran # 0.06 H (0.00-0.04) X 10*3/uL Anion Gap 9.90 L (10.00-18.00) mmol/L BUN 5.7 L (9.0-27.0) mg/dL BUN/Creatinine Ratio 8.14 L (12.00-20.00) Ratio POC Glucose (mg/dL) 114 H (75-99) mg/dL Calcium 8.6 L (8.7-10.3) mg/dL Assessment and Plan (1) GI bleed Narrative/Plan: Patient doing well today. May discharge from our point of view. Follow hemoglobin is outpatient. Continue antiacids postdischarge. Current Visit: Yes Status: Acute Code(s): K92.2 - GASTROINTESTINAL HEMORRHAGE, UNSPECIFIED SNOMED Code(s): 87360739
[2022-01-06 12:25] LABS: Glucose,Whole Blood 109 mg/dL (75-99)
--- NOTE | 2022-01-06 22:46 | P.DS ---
Providers Date of admission: 01/02/22 12:00 Attending physician: Mundo Marti Consults: 12/31/21 22:58 Consult Physician Urgent Consulting Provider: Erika Castro Consult Reason/Comments: chest pain, ekg changes Do you want consulting provider notified?: Yes 01/01/22 08:28 Consult Physician Routine Consulting Provider: Micheal Dang Consult Reason/Comments: anemia, black stools, evaluate for possible scope. GI not available. Do you want consulting provider notified?: Yes Primary care physician: Varun Marcum Hospital Course: Final Diagnosis Acute GI Bleed with acute anemia, increased reticulocyte count Acute blood loss anemia secondary to GI bleed Chest pain, acute coronary syndrome has been ruled out Duodenitis with stricture gastritis, hiatal hernia, and esophagitis with esophageal stricture Possible acute UTI culture showing normal amparo, antibiotics completed Hypertension Diabetes mellitus type II History of GERD History of asthma History of GI Bleed History of rheumatoid arthritis Discharge Disposition Patient is stable for discharge home. Colonoscopy completed yesterday showing no active bleeding. Follow up with Dr. NICCI Whaley, and Dr. Varun Marcum in the office. Repeat CBC in 2-3 days. Hospital Course This is a pleasant 76 year old female who presents to the office with complaints of severe weakness, tiredness, burning chest pain 4/10 in severity, central, nonradiating that has been going on for the last 2 weeks with throat discomfort. Patient has also noticed black stool for the last 4 days. One episode of emesis has been reported, no reports of blood. Patient had an EGD at [facility] about 8 years ago , has had esophageal dilation, also with unremarkable colonoscopy 3 to 4 years ago. Past medical history includes Diabetes Mellitus type 2, asthma, fibromyalgia, GERD, GI bleed, hypertension, rheumatoid arthritis. Patient also reports chronic pain in her back and spine, states she used to take prescription opioid medication which she has been off for years, She takes aleve as needed over the counter, usually daily. Patient states she was taken off her omeprazole for the last month and was unable to get it filled. Diagnostic work-up including: WBCs showing elevation at 14.1. Hemoglobin 9.8 dropped from last time 11.2 on 12/19. Before that was 12-13. INR 1.0. Urine analysis is suspicious for infection. Urine culture negative showing normal amparo. Influenza, RSV, coronavirus PCR: undetected. Chest x-ray: Minimal pulmonary fibrosis, no acute event. EKG showing normal sinus rhythm at [address]-T changes. Patient was admitted to the hospital with consult placed to cardiology and surgical services for chest pain and acute GI bleed. Echocardiogram was completed showing EF of 50-55% normal LV size, mild concentric LVH, mild to moderate left atrial enlargement, mild mitral and tricuspid and aortic insufficiency. Patient was recommended by PCP for an outpatient stress test. Acute coronary syndrome has been ruled out, cardiology follow up outpatient. Patient underwent EGD on 12/31/2021 which shows duodenal stricture, gastritis, moderate sized hiatal hernia, esophageal stricture. Plan to continue antacid, if dysphagia persists or evidence for gastric outlet obstruction plan for dilation of stricture, follow up outpatient as need if symptoms return. Biopsy showing m ild chronic and acute esophagitis, no intramucosal eosinophils, no Helicobacter pylori organisms identified. Patient was taken for colonoscopy on 01/05/2022 with revealed a normal exam no evidence for acute GI bleeding. Patient reports has since had BM and denies blood in the stool. Patient received 2 doses of IV ferrlecit and continues on oral iron twice a day, in addition to omeprazole twice a day for 2 weeks and can decrease to once daily. Instructions to follow up with surgeon as needed for returning of symptoms, worsening of dysphagia, dark, tarry, maroon, or mariah red blood in the stool. 01/06/2022 Patient evaluated today sitting up in bed. She is cleared by surgical services with follow up as needed in the office. She denies abdominal pain, denies nausea, vomiting, diarrhea. No complaints of blood in the stool, tolerating diet. Denies chest pain, shortness of breath. Lungs are clear, S1 S2 auscultated, abdomen is soft and nontender. Focal neurological exam is negative. Hemoglobin today 7.7, which yesterday was 8.8, MCV 100.8. Vitamin B12 250.0, Folate level >20.0. Triglycerides saying 159.00, cholesterol 155, LDL 60.1, HDL 63.10. Hemodynamically stable, afebrile, heart rate 63, blood pressure 150/75, 95% pulse oximetry on room air. Patient will be discharged from the hospital today and recommended for follow up in 1-2 days. Please see medication reconciliation for a list of current medication. Thank you for allowing us to participate in the care of this patient. The impression and plan of care has been dictated by Nurse Shannan Prac titioner as directed. Dr. Kaden MD I have performed a history and physical examination and medical decision making of this patient, discussed the same with the dictator, and agree with the dictators assessment and plan as written, documented as a scribe. Based on total visit time, I have performed more than 50% of this visit. Patient Condition at Discharge: Stable Plan - Discharge Summary Discharge Rx Participant: No New Discharge Prescriptions: New Ferrous Sulfate [Iron (65 MG Elemental)] 325 mg PO BID-W/MEALS #60 tab Omeprazole 20 mg PO DIRECTED 30 Days #44 cap Acetaminophen Tab [Tylenol] 650 mg PO Q6HR PRN tab PRN Reason: Fever and/ or Mild Pain Cyanocobalamin [Vitamin B-12] 1,000 mcg PO DAILY #30 tab Omeprazole [PriLOSEC] 20 mg PO AC-BRKFST #90 cap Continue metFORMIN HCL [Glucophage] 850 mg PO BID Cranberry Fruit Concentrate [Cranberry] 450 mg PO DAILY Verapamil HCl [Verapamil ER] 240 mg PO DAILY Multivit-Min/Iron/Folic/Lutein [Centrum Silver Women Tablet] 1 tab PO DAILY Cholecalciferol [Vitamin D3 (25 Mcg = 1000 Iu)] 50 mcg PO DAILY Metoclopramide [Reglan] 5 mg PO TID PRN #20 tab PRN Reason: Nausea And Vomiting Citalopram Hydrobromide [CeleXA] 40 mg PO DAILY Benazepril HCl [Lotensin] 20 mg PO DAILY Discontinued Iron(Unknown) 1 tab PO DAILY Discharge Medication List Cranberry Fruit Concentrate [Cranberry] 450 mg PO DAILY 04/09/16 [History] Verapamil HCl [Verapamil ER] 240 mg PO DAILY 04/09/16 [History] metFORMIN HCL [Glucophage] 850 mg PO BID 04/09/16 [History] Multivit-Min/Iron/Folic/Lutein [Centrum Silver Women Tablet] 1 tab PO DAILY 06/15/18 [History] Benazepril HCl [Lotensin] 20 mg PO DAILY 04/24/21 [History] Cholecalciferol [Vitamin D3 (25 Mcg = 1000 Iu)] 50 mcg PO DAILY 04/24/21 [History] Citalopram Hydrobromide [CeleXA] 40 mg PO DAILY 04/24/21 [History] Metoclopramide [Reglan] 5 mg PO TID PRN #20 tab 12/19/21 [Rx] Acetaminophen Tab [Tylenol] 650 mg PO Q6HR PRN tab 01/06/22 [Rx] Cyanocobalamin [Vitamin B-12] 1,000 mcg PO DAILY #30 tab 01/06/22 [Rx] Ferrous Sulfate [Iron (65 MG Elemental)] 325 mg PO BID-W/MEALS #60 tab 01/06/22 [Rx] Omeprazole 20 mg PO DIRECTED 30 Days #44 cap 01/06/22 [Rx] Omeprazole [PriLOSEC] 20 mg PO AC-BRKFST #90 cap 01/06/22 [Rx] Follow up Appointment(s)/Referral(s): Micheal Dang MD [Medical Doctor] - Luis M Whaley MD [STAFF PHYSICIAN] - 01/21/22 10:30 am Varun Marcum [Primary Care Provider] - 1-2 days Ambulatory/Diagnostic Orders: Complete Blood Count w/diff [LAB.AMB] Time Frame: 2 Days, Location: None Selected Patient Instructions/Handouts: Iron Rich Diet (DC), Esophagitis (DC) Activity/Diet/Wound Care/Special Instructions: Patient instructed to take omeprazole twice a day for 14 days and then switch to daily Monitor for rectal bleeding, bright red, dark, tarry, or maroon in color Avoid NSAIDS, motrin/ibuprofen based products Tylenol/acetaminophen products for pain Oral iron supplement can be constipating, can use over the counter medication as needed Discharge Disposition: HOME SELF-CARE
== END 2022-01-06 16:18 | disposition home or self-care (01) | DRG 378 ==
LOC: EC 20:41 → 6NMEDSUR 22:58 → OBSVTOIN 01-02 12:00
PROVIDERS: ADMIT Hospitalist; ATTEND Hospitalist
PROC: 0DB78ZX Excision of Stomach, Pylorus, Via Natural or Artificial Opening Endoscopic, Diagnostic (ICD-10-PCS; 2022-01-01)
PROC: 0DB48ZX Excision of Esophagogastric Junction, Via Natural or Artificial Opening Endoscopic, Diagnostic (ICD-10-PCS; principal; 2022-01-01 10:25)
PROC: 0DJD8ZZ Inspection of Lower Intestinal Tract, Via Natural or Artificial Opening Endoscopic (ICD-10-PCS; 2022-01-05)
DX: K92.2 Gastrointestinal hemorrhage, unspecified (principal); K31.5 Obstruction of duodenum; D62 Acute posthemorrhagic anemia; N39.0 Urinary tract infection, site not specified; J84.10 Pulmonary fibrosis, unspecified; K22.2 Esophageal obstruction; E11.9 Type 2 diabetes mellitus without complications; E78.5 Hyperlipidemia, unspecified; D72.829 Elevated white blood cell count, unspecified; M06.9 Rheumatoid arthritis, unspecified; Z20.822 Contact with and (suspected) exposure to COVID-19; K29.80 Duodenitis without bleeding; K21.00 Gastro-esophageal reflux disease with esophagitis, without bleeding; K29.70 Gastritis, unspecified, without bleeding; K44.9 Diaphragmatic hernia without obstruction or gangrene; I25.2 Old myocardial infarction; I10 Essential (primary) hypertension; J45.909 Unspecified asthma, uncomplicated; I25.10 Atherosclerotic heart disease of native coronary artery without angina pectoris; R51.9 Headache, unspecified; M79.7 Fibromyalgia; G89.29 Other chronic pain; M54.9 Dorsalgia, unspecified; H53.50 Unspecified color vision deficiencies; H26.9 Unspecified cataract; F43.9 Reaction to severe stress, unspecified; Z79.84 Long term (current) use of oral hypoglycemic drugs; Z79.899 Other long term (current) drug therapy; Z90.49 Acquired absence of other specified parts of digestive tract; Z87.19 Personal history of other diseases of the digestive system; Z98.51 Tubal ligation status; Z96.652 Presence of left artificial knee joint; Z87.39 Personal history of other diseases of the musculoskeletal system and connective tissue; Z87.11 Personal history of peptic ulcer disease; Z98.890 Other specified postprocedural states; Z88.5 Allergy status to narcotic agent; Z88.0 Allergy status to penicillin; Z88.8 Allergy status to other drugs, medicaments and biological substances; Z88.6 Allergy status to analgesic agent; Z91.041 Radiographic dye allergy status; Z82.49 Family history of ischemic heart disease and other diseases of the circulatory system
CPT/HCPCS: 36415; 43239; 45378; 71046; 80048; 80061; 81001; 82272; 82607; 82728; 82746; 83540; 83550; 83880; 84484; 85025; 85027; 85045; 85610; 85730; 87086; 87636; 88305; 93005; 93306; 94760; 99285